=== PATIENT | male | born 1930 | race Caucasian/White ===

== ENCOUNTER → 2016-06-27 | Outpatient (CLI) | payer MEDICARE ==
[~2016-06-27] MED LIST: AMLO10TA2 PO; BACT800T5 PO; CEFD300CAP PO; FERR325T16 PO; FERR32TA PO; FLUC10TA PO; FORADIL AEROLIZER INH; FURO20TA2 PO; FURO40TA2 PO; K-TA1TAB PO; LACT10SO29 PO; LASI40TA PO; LIDO5TD TD; LISI40TAB PO; LISIPOW PO; MAGN500T PO; MAPA325T2 PO; MUCI600T34 PO; MYLASSUD PO; NIZO2SHA EX; OXYB5TA PO; PANT40TA2 PO; PERC5TAB6 PO; RISATAB3 PO; SENN1TAB2 PO; STRI1AER2 INH; TROSPIUM CHLORIDE PO; VERA120T2 PO; VERAPAMIL PO; VITA-130 PO; VITA200015 PO; VITAMIN D PO; VITATAB11 PO; [UNRECOGNIZED DRUG - OTHER]
[2016-06-27 18:26] LABS: MEAN CORPUSCULAR HEMOGLOBIN 28.7 pg (27.0-33.0); MEAN CORPUSCULAR HGB CONC 30.9 g/dl (32.0-36.5); MEAN CORPUSCULAR VOLUME 92.9 fl (80.0-96.0)
[2016-06-27 19:14] LABS: CREATININE FOR GFR 3.76 MG/DL (0.70-1.30); GLOMERULAR FILTRATION RATE 16.3 (>35); POTASSIUM SERUM 3.9 MEQ/L (3.5-5.1)
== END ==
LOC: M SMT 14:35
PROVIDERS: ATTEND Urology
DX: N13.5 Crossing vessel and stricture of ureter without hydronephrosis (principal)

== ENCOUNTER → 2016-07-03 | Outpatient (REF) | payer MEDICARE ==
[~2016-07-03] MED LIST changes: +NITR100C37 PO; +ROCA0.25 PO
== END ==
LOC: M SMT 17:22
PROVIDERS: ATTEND Urology
DX: Z01.818 Encounter for other preprocedural examination (principal); N13.5 Crossing vessel and stricture of ureter without hydronephrosis

== ENCOUNTER → 2016-07-10 | Day surgery (SDC) | payer MEDICARE ==
[~2016-07-10] VITALS: Ht 172.7 cm; Wt 86.6 kg
[~2016-07-10] MED LIST changes: +CONRAY-60 60% 50ML VIAL (Q9961) As Ordered ONE; +CONRAY-60 60% 50ML VIAL (Q9961) XX ONE; +LIDOCAINE 2% 5ML JELLY UROJET As Ordered ONE; +LIDOCAINE 2% 5ML JELLY UROJET XX ONE; +LIDOCAINE 2% INJ 100 MG/5 ML SDV (FOR ANES.) As Ordered ONE; +LR 1,000 ML IV SCH; +MIDAZOLAM INJ 2 MG/2 ML VIAL (J2250) As Ordered ONE; +PROPOFOL 200 MG/20 ML VIAL As Ordered ONE; +fentaNYL 100 MCG/2 ML INJECTION (J3010) As Ordered ONE
--- NOTE | 2016-07-10 18:07 | REP ---
Clinical: Stent exchange. Technique: Intraoperative fluoroscopic imaging. Findings: Two images demonstrate bilateral ureteral stents in satisfactory position. Total fluoroscopic time 27 seconds. Left hip replacement. Degenerative changes to the visualized lumbosacral spine. Impression: Bilateral stents in satisfactory position. Mild bilateral hydronephrosis (right greater than left) suggested. Signed by Nitin Alston MD 07/10/2016 05:58 P
--- NOTE | 2016-07-10 18:55 | RO ---
DATE OF PROCEDURE: 07/10/2016 PREPROCEDURE DIAGNOSIS: Bilateral ureteral obstruction. POSTPROCEDURE DIAGNOSIS: Bilateral ureteral obstruction. PROCEDURE: Cystoscopy, bilateral ureteral stent exchange, bilateral retrograde pyelogram with intraoperative interpretation of images. SURGEON: Dr. Gokul Ibrahim COMMUNITY RELATIONS LIAISON: None. ANESTHESIA: MAC. OPERATIVE INDICATIONS: This is an 86-year-old male with bilateral ureteral obstruction managed with chronic ureteral stenting. He is here today for his usual three month stent exchange. DESCRIPTION OF PROCEDURE: The patient was brought to the operating room and MAC anesthesia was administered. Prophylactic antibiotics were infused. He was then placed in dorsal lithotomy position and prepped and draped in the usual sterile fashion. A rigid cystoscope was inserted into the urethral meatus and advanced to the bladder. Once within the bladder, the previously stents were seen. At this point a guidewire was advanced up the left collecting system. The left ureteral stent was them removed. We then advanced an open ended ureteral catheter up the left collecting system over the wire. The wire was then remove and a retrograde pyelogram was then performed. It was notable for moderate left hydronephrosis. At this point the wire was advanced back up in the left collecting system and the open ended ureteral catheter was then removed. We then advanced a 7 [place] x 22-32 cm JJ ureteral stent up into the left collecting system over the wire. The wire was then removed and there were adequate curls of the stent in the left renal pelvis and in the bladder. At this point, I began to wire the right collecting system. The previously placed right ureteral stent was then removed leaving the wire in place. An open ended ureteral catheter was then advanced over the wire up into the right collecting system. The wire was then removed and a retrograde pyelogram was performed. It was notable for moderate right hydronephrosis. At this point the wire was then advanced back up the open end of the ureteral catheter. The open ended ureteral catheter was then removed leaving the wire in place. I then advanced a 7 [place] x 22-32 cm JJ ureteral stent over the wire up into the right collecting system. The wire was then removed and there were adequate curls of the stent in the right renal pelvis and in the bladder. The bladder was then emptied of all fluid. This marked the conclusion of the procedure. The patient was then taken out of dorsal lithotomy position, awakened from anesthesia and transported to the recovery room in stable condition. ESTIMATED BLOOD LOSS: 0 mL. COMPLICATIONS: None. SPECIMEN: None. PLAN: The patient will be brought back and seen in the clinic in about 2 months and wee will set up for his next stent exchange at that time. ORA
[2016-07-10 18:57] VITALS: BP 148/58
== END | disposition home or self-care (01) ==
LOC: M SDC 14:09
PROVIDERS: ATTEND Urology
DX: N13.5 Crossing vessel and stricture of ureter without hydronephrosis (principal); I10 Essential (primary) hypertension; D64.9 Anemia, unspecified; R23.3 Spontaneous ecchymoses; M12.9 Arthropathy, unspecified; R21 Rash and other nonspecific skin eruption; N28.9 Disorder of kidney and ureter, unspecified; C61 Malignant neoplasm of prostate; R32 Unspecified urinary incontinence; Z79.899 Other long term (current) drug therapy; Z96.651 Presence of right artificial knee joint; Z96.643 Presence of artificial hip joint, bilateral; Z85.118 Personal history of other malignant neoplasm of bronchus and lung; Z85.09 Personal history of malignant neoplasm of other digestive organs; Z92.3 Personal history of irradiation
CPT/HCPCS: 52332; 74420; C1726; C2617; J0690; J2250; J3010; Q9961

== ENCOUNTER → 2016-07-28 | Outpatient (REF) | payer MEDICARE ==
[~2016-07-28] MED LIST changes: -CONRAY-60 60% 50ML VIAL (Q9961) As Ordered ONE; -CONRAY-60 60% 50ML VIAL (Q9961) XX ONE; -LIDOCAINE 2% 5ML JELLY UROJET As Ordered ONE; -LIDOCAINE 2% 5ML JELLY UROJET XX ONE; -LIDOCAINE 2% INJ 100 MG/5 ML SDV (FOR ANES.) As Ordered ONE; -LR 1,000 ML IV SCH; -MIDAZOLAM INJ 2 MG/2 ML VIAL (J2250) As Ordered ONE; -PROPOFOL 200 MG/20 ML VIAL As Ordered ONE; -fentaNYL 100 MCG/2 ML INJECTION (J3010) As Ordered ONE
== END ==
LOC: M LAB REF 16:57
PROVIDERS: ATTEND Internal Medicine Nephrology
DX: D50.9 Iron deficiency anemia, unspecified (principal)

== ENCOUNTER 2016-08-04 08:54 | Outpatient (CLI) | payer MEDICARE ==
[~2016-08-04] VITALS: Ht 177.8 cm; Wt 93.6 kg
[2016-08-04] MEDS ORDERED: IRON SUCROSE 25 MG in NS 50 ML IV ONE (09:15)
[2016-08-04] MEDS ORDERED: IRON SUCROSE 475 MG in NS 250 ML IV ONE (10:15)
[2016-08-04] MEDS ORDERED: [UNRECOGNIZED DRUG - OTHER] TOP (13:48)
[2016-08-04] MEDS ORDERED: LASI80TA PO (13:50)
[2016-08-04] MEDS ORDERED: LASI40TA PO (13:51)
[2016-08-04] MEDS ORDERED: [UNRECOGNIZED DRUG - OTHER] (13:53)
== END 2016-08-04 13:30 | disposition home or self-care (01) ==
LOC: M INFU 08:54
PROVIDERS: ATTEND Internal Medicine Nephrology
DX: D50.9 Iron deficiency anemia, unspecified (principal); Z79.899 Other long term (current) drug therapy
CPT/HCPCS: 96365; 96366; J1756

== ENCOUNTER → 2016-09-19 | Outpatient (REF) | payer MEDICARE ==
[~2016-09-19] MED LIST changes: +ACET-654 PO; +LASI80TA PO; +PROTPAK PO; +SUCR1TA PO; +VITA-199 PO; +VITA2000 PO; +[UNRECOGNIZED DRUG - OTHER]; +[UNRECOGNIZED DRUG - OTHER] TOP
[2016-09-19 19:23] LABS: CHOLESTEROL LEVEL 156 MG/DL (<200); TRIGLYCERIDES LEVEL 139 MG/DL (<150)
[2016-09-20 10:07] LABS: HEPATITIS B SURFACE ANTIBODY NEGATIVE (POSITIVE)
== END ==
LOC: M LAB REF 17:10
PROVIDERS: ATTEND Internal Medicine Nephrology
DX: N18.5 Chronic kidney disease, stage 5 (principal); Z79.899 Other long term (current) drug therapy

== ENCOUNTER → 2016-09-27 | Outpatient (CLI) | payer MEDICARE ==
[~2016-09-27] MED LIST changes: +NITRO10CA PO
[2016-09-27 10:42] LABS: MEAN CORPUSCULAR HGB CONC 33.1 g/dl (32.0-36.5); MEAN CORPUSCULAR VOLUME 93.9 fl (80.0-96.0); RED CELL DISTRIBUTION WIDTH 13.9 % (11.5-14.5); WHITE BLOOD COUNT 5.8 K/mm3 (4.0-10.0)
[2016-09-27 10:57] LABS: CALCIUM LEVEL 8.7 MG/DL (8.8-10.2); CREATININE FOR GFR 4.85 MG/DL (0.70-1.30); GLOMERULAR FILTRATION RATE 12.1 (>35); POTASSIUM SERUM 3.8 MEQ/L (3.5-5.1)
== END ==
LOC: M SMT 08:57
PROVIDERS: ATTEND Urology
DX: Z01.818 Encounter for other preprocedural examination (principal); N13.5 Crossing vessel and stricture of ureter without hydronephrosis
CPT/HCPCS: 36415; 80048; 85027; 87088; 87186; G0463

== ENCOUNTER → 2016-10-05 | Day surgery (SDC) | payer MEDICARE ==
[~2016-10-05] VITALS: Ht 175.3 cm; Wt 91.2 kg
[~2016-10-05] MED LIST changes: +CONRAY-60 60% 50ML VIAL (Q9961) As Ordered ONE; +LIDOCAINE 2% 5ML JELLY UROJET As Ordered ONE; +LIDOCAINE 2% INJ 100 MG/5 ML SDV (FOR ANES.) As Ordered ONE; +LR 1,000 ML IV ONE; +LevoFLOXacin(LEVAQUIN)500 MG/100 ML BAG (J1956) As Ordered ONE; +MIDAZOLAM INJ 2 MG/2 ML VIAL (J2250) As Ordered ONE; +NS 1,000 ML IV SCH; +PROPOFOL 200 MG/20 ML VIAL As Ordered ONE; +ceFAZolin 2 GM/D5W 50 ML IV BAG (J0690) As Ordered ONE; +fentaNYL 100 MCG/2 ML INJECTION (J3010) As Ordered ONE
--- NOTE | 2016-10-05 12:55 | REP ---
Retrograde pyelogram: Two views. History: Stent exchange. 34 seconds of fluoroscopy time is reported. Findings: A sequence of two fluoroscopically obtained last image hold spot radiographs of the abdomen document bilateral double pigtailed ureteral stents. Signed by João Crystal MD 10/05/2016 01:00 P
[2016-10-05 13:30] VITALS: BP 152/69
--- NOTE | 2016-10-06 14:48 | RO ---
DATE OF PROCEDURE: 10/05/2016 PREPROCEDURE DIAGNOSIS: Bilateral ureteral obstruction. POSTPROCEDURE DIAGNOSIS: Bilateral ureteral obstruction. PROCEDURE: Cystoscopy, bilateral retrograde pyelogram with intraoperative interpretation of images, bilateral ureteral stent exchange. SURGEON: Gokul Ibrahim MD REHABILITATION COUNSELOR: None. ANESTHESIA: MAC. OPERATIVE INDICATIONS: This is a 86-year-old male with chronic bilateral ureteral obstruction and chronic ureteral stent exchanges. He is here today for routine stent exchange. DESCRIPTION OF PROCEDURE: The patient was brought to the operating room, where MAC anesthesia was administered. Prophylactic antibiotics were infused. He was then placed in the dorsal lithotomy position and prepped and draped in the usual sterile fashion. A rigid cystoscope was then inserted into the urethral meatus and advanced into the bladder. A wire was then advanced up the left collecting system alongside the ureteral stent. The stent was then removed. An open ended ureteral catheter was advanced over the wire up into the left collecting system. The wire was then removed leaving the ureteral catheter in place. A retrograde pyelogram was performed and notable for mild left hydronephrosis with no extravasation. The wire was then advanced back up the ureteral catheter and the ureteral catheter was them removed. We then utilized the wire to advance a #7-[place]au[place] x 22-32 cm JJ ureteral stent up the left collecting system. The wire was then removed, and there were adequate curls of the stent in the left renal pelvis and in the bladder. I then advanced the wire up the right collecting system alongside the stent. The stent was then removed leaving the wire in place. An open ureteral catheter was then advanced over the wire up into the right collecting system. The wire was then removed leaving the ureteral catheter in place. I then shot a right retrograde pyelogram and it was notable for mild right hydronephrosis and no extravasation. At this point the wire was then advanced back up the ureteral catheter and then the ureteral catheter was then removed. The wire was utilized to advance a #7-[place] x 22-32 cm JJ ureteral stent up into the right collecting system. The wire was then removed and there were adequate curls of the stent in the right renal pelvis and in the bladder. At this point, the bladder was then emptied of all fluid, and this marked the conclusion of the procedure. The patient was then taken out of the dorsal lithotomy position, awakened from anesthesia, and transported to the recovery room in stable condition. ESTIMATED BLOOD LOSS: 0 mL. COMPLICATIONS: None. SPECIMENS: None. PLAN: The patient will followup in the clinic in approximately 2 months. At that point, we will get him set up for a possible stent exchange. Of note, the patient will be going on dialysis soon and I have explained that when that happens he might stop making urine. If that happens, we will actually remove the stents. ORA
== END | disposition home or self-care (01) ==
LOC: M SDC 09:36 → EEVIPCON 11:00
PROVIDERS: ATTEND Urology
DX: N13.5 Crossing vessel and stricture of ureter without hydronephrosis (principal); N18.5 Chronic kidney disease, stage 5; D50.9 Iron deficiency anemia, unspecified; M10.9 Gout, unspecified; N39.0 Urinary tract infection, site not specified; R60.0 Localized edema; I12.0 Hypertensive chronic kidney disease with stage 5 chronic kidney disease or end stage renal disease; E87.6 Hypokalemia; K21.9 Gastro-esophageal reflux disease without esophagitis; E55.9 Vitamin D deficiency, unspecified; M12.9 Arthropathy, unspecified; R21 Rash and other nonspecific skin eruption; Z79.899 Other long term (current) drug therapy; Z90.2 Acquired absence of lung [part of]; Z96.0 Presence of urogenital implants; Z85.038 Personal history of other malignant neoplasm of large intestine; Z85.118 Personal history of other malignant neoplasm of bronchus and lung; Z87.440 Personal history of urinary (tract) infections; Z87.442 Personal history of urinary calculi; Z92.21 Personal history of antineoplastic chemotherapy; Z92.3 Personal history of irradiation; Z87.891 Personal history of nicotine dependence; Z96.643 Presence of artificial hip joint, bilateral; Z96.651 Presence of right artificial knee joint
CPT/HCPCS: 52332; 74420; C1726; C2617; J0690; J1956; J2250; J3010; Q9961

== ENCOUNTER → 2016-11-27 | Outpatient (CLI) | payer MEDICARE ==
[~2016-11-27] MED LIST changes: -ACET-654 PO; +ACET1TAB17 PO; +CEPH500C PO; -CONRAY-60 60% 50ML VIAL (Q9961) As Ordered ONE; -LIDOCAINE 2% 5ML JELLY UROJET As Ordered ONE; -LIDOCAINE 2% INJ 100 MG/5 ML SDV (FOR ANES.) As Ordered ONE; -LR 1,000 ML IV ONE; -LevoFLOXacin(LEVAQUIN)500 MG/100 ML BAG (J1956) As Ordered ONE; -MIDAZOLAM INJ 2 MG/2 ML VIAL (J2250) As Ordered ONE; -MUCI600T34 PO; +MUCI600T37 PO; +MULT1TAB10 PO; +NITR100C2 PO; -NITR100C37 PO; +NITR100C39 PO; +NIZO2SHA EXT; +NIZO2SHA TOP; -NS 1,000 ML IV SCH; -OXYB5TA PO; +OXYB5TAB10 PO; +PERC5TAB12 PO; -PERC5TAB6 PO; -PROPOFOL 200 MG/20 ML VIAL As Ordered ONE; -VITA-130 PO; +VITA500T PO; +VP-V1TAB PO; -ceFAZolin 2 GM/D5W 50 ML IV BAG (J0690) As Ordered ONE; -fentaNYL 100 MCG/2 ML INJECTION (J3010) As Ordered ONE
[2016-11-27 19:02] LABS: MEAN CORPUSCULAR HEMOGLOBIN 31.3 pg (27.0-33.0); MEAN CORPUSCULAR HGB CONC 32.3 g/dl (32.0-36.5); MEAN CORPUSCULAR VOLUME 96.7 fl (80.0-96.0); RED CELL DISTRIBUTION WIDTH 14.5 % (11.5-14.5); WHITE BLOOD COUNT 8.3 K/mm3 (4.0-10.0)
[2016-11-27 19:32] LABS: ALBUMIN 3.5 GM/DL (3.2-5.2); CALCIUM LEVEL 8.1 MG/DL (8.8-10.2); CREATININE FOR GFR 5.01 MG/DL (0.70-1.30); GLOMERULAR FILTRATION RATE 11.7 (>35); MAGNESIUM LEVEL 2.4 MG/DL (1.8-2.4); PHOSPHORUS LEVEL 7.2 MG/DL (2.5-4.9); POTASSIUM SERUM 4.2 MEQ/L (3.5-5.1); URIC ACID 6.6 MG/DL (3.5-7.2)
== END ==
LOC: M SMT 14:26
PROVIDERS: ATTEND Internal Medicine Nephrology
DX: N18.5 Chronic kidney disease, stage 5 (principal); D63.1 Anemia in chronic kidney disease

== ENCOUNTER → 2016-12-04 | Outpatient (REF) | payer MEDICARE ==
[2016-12-04 14:49] LABS: CHOLESTEROL LEVEL 120 MG/DL (<200); HEPATITIS B SURFACE ANTIBODY NEGATIVE (POSITIVE); TRIGLYCERIDES LEVEL 107 MG/DL (<150)
== END ==
LOC: M LAB REF 14:00
PROVIDERS: ATTEND Internal Medicine Nephrology
DX: Z01.818 Encounter for other preprocedural examination (principal); N18.5 Chronic kidney disease, stage 5; N13.5 Crossing vessel and stricture of ureter without hydronephrosis; N39.0 Urinary tract infection, site not specified; Z79.899 Other long term (current) drug therapy
CPT/HCPCS: 80061; 83036; 86705; 86706; 86803; 87340; G0463

== ENCOUNTER → 2016-12-21 | Outpatient (CLI) | payer MEDICARE ==
--- NOTE | 2016-12-21 12:33 | REP ---
REASON FOR EXAM: Preprocedural imaging. Patient status post carcinoma of the right lung. COMPARISON: Multiple latest 09/05/2016, a portable exam. Once again, there is complete opacification of the right hemithorax due to pneumonectomy. There are no changes in the left lung. There is hyperexpansion and evidence of fibrotic change but no acute patchy parenchymal opacities or pleural effusions have developed. There is no change in the cardiomediastinal silhouette or osseous structures. IMPRESSION: Stable appearing chronic changes as described above. Signed by Kelvin King DO 12/21/2016 04:44 P
== END ==
LOC: M LAB 10:36
PROVIDERS: ATTEND Urology
DX: Z01.818 Encounter for other preprocedural examination (principal); N13.5 Crossing vessel and stricture of ureter without hydronephrosis; N39.0 Urinary tract infection, site not specified; Z79.899 Other long term (current) drug therapy

== ENCOUNTER 2016-12-28 06:22 | Inpatient (IN) | payer MEDICARE ==
[~2016-12-28] VITALS: Ht 177.8 cm; Wt 79.6 kg
[~2016-12-28 06:22] MED LIST changes: -CEPH500C PO; -MULT1TAB10 PO; -NITR100C2 PO; -NIZO2SHA EXT; -VP-V1TAB PO
[2016-12-28 08:08] LABS: BASO % 0.1 % (0.0-1.0); EOS # 0.3 K/mm3 (0.0-0.50); EOS % 3.2 % (0.0-3.0); LARGE UNSTAINED CELL # 0.1 K/mm3 (0.0-0.4); LARGE UNSTAINED CELL % 0.6 % (0.0-4.0); LYMPH # 0.2 K/mm3 (1.5-4.5); LYMPH % 1.6 % (24.0-44.0); MEAN CORPUSCULAR HEMOGLOBIN 32.5 pg (27.0-33.0); MEAN CORPUSCULAR VOLUME 98.3 fl (80.0-96.0); MONO # 0.3 K/mm3 (0.0-0.8); MONO % 2.9 % (0.0-5.0); NEUTROPHILS # 9.3 K/mm3 (1.8-7.7); NEUTROPHILS % 91.5 % (36.0-66.0); PLATELET COUNT, AUTOMATED 269 k/mm3 (150-450); RED CELL DISTRIBUTION WIDTH 13.9 % (11.5-14.5); WHITE BLOOD COUNT 10.1 K/mm3 (4.0-10.0)
--- NOTE | 2016-12-28 08:30 | REP ---
CT Head without contrast HISTORY: Altered mental status COMPARISON: 09/05/2016 Areas of decreased attenuation are present in the periventricular white matter. This represents small-vessel ischemic disease. There is no intraparenchymal hemorrhage, acute infarct, mass or midline shift. The ventricular system and cortical sulci are dilated consistent with moderate volume loss. There is no extra cerebral collection. There is no fracture. The visualized sinuses are clear. IMPRESSION: 1. Small vessel ischemic disease. 2. Moderate volume loss. Signed by Marek Chino MD 12/28/2016 08:22 A
[2016-12-28 08:41] LABS: ALBUMIN 2.5 GM/DL (3.2-5.2); ALBUMIN/GLOBULIN RATIO 0.81 (1.00-1.93); ALKALINE PHOSPHATASE 66 U/L (45-117); ALT/SGPT 12 U/L (12-78); ANION GAP 9 MEQ/L (8-16); AST/SGOT 16 U/L (15-37); BILIRUBIN,DIRECT 0.1 MG/DL (0.0-0.2); BILIRUBIN,TOTAL 0.3 MG/DL (0.2-1.0); BLOOD UREA NITROGEN 26 MG/DL (7-18); CALCIUM LEVEL 7.9 MG/DL (8.8-10.2); CARBON DIOXIDE LEVEL 30 MEQ/L (21-32); CHLORIDE LEVEL 104 MEQ/L (98-107); CREATININE FOR GFR 3.66 MG/DL (0.70-1.30); GLOMERULAR FILTRATION RATE 16.8 (>35); GLUCOSE, FASTING 110 MG/DL (83-110); POTASSIUM SERUM 3.4 MEQ/L (3.5-5.1); SODIUM LEVEL 143 MEQ/L (136-145); TOTAL PROTEIN 5.6 GM/DL (6.4-8.2)
[2016-12-28] MEDS: SALMETEROL DISKUS 50MCG INHALER (SEREVENT) INH SCH ×2 (09:00→20:23)
--- NOTE | 2016-12-28 09:50 | REP ---
CHEST, TWO VIEWS: HISTORY: Altered mental status. CONCLUSIONS: 12/21/2016 The patient is status post right pneumonectomy. There is shift of the mediastinal structures to the right. There opacification of the right hemithorax. Calcified granuloma are present in the left lung. Degenerative change is present in the thoracic spine. The bony structure is osteopenic. IMPRESSION: 1. The patient is status post right pneumonectomy. 2. Old granulomatous disease. Signed by Marek Chino MD 12/28/2016 11:05 A
[2016-12-28] MEDS ORDERED: NIZO2SHA EXT (09:58)
[2016-12-28] MEDS ORDERED: CEPH500C PO (09:58)
[2016-12-28] MEDS ORDERED: ACETAMINOPHEN TAB 650MG DOSE (2X325MG) PO PRN (10:30)
[2016-12-28] MEDS ORDERED: ALBUTEROL SULFATE 2.5 MG/0.5 ML INH NEB SOLN NEB PRN (10:30)
[2016-12-28 14:30] VITALS: BP 117/56
--- NOTE | 2016-12-28 15:11 | HPE ---
DATE OF ADMISSION: 12/28/2016 PRIMARY CARE PROVIDER: Dr. Walker CHIEF COMPLAINT: Fall. HISTORY OF PRESENT ILLNESS: This patient is an 86-year-old male with a past medical history significant for end stage renal disease on dialysis, chronic obstructive pulmonary disease (COPD), lung cancer, status post right pneumonectomy, frequent urinary tract infections, history of prostate cancer, secondary hyperparathyroidism, who presented to [facility] on 12/28/2016 after a fall. This morning around 5:45 a.m., the patient tried to stand up and reach to grab his medication and he fell and landed on his left hip and denies any loss of consciousness. Shortly after the family members arrived and noticed the patient had left arm shaking for brief moments. The patient also complained about generalized weakness. The patient was brought to [facility] for further evaluation. Per patient and the patient's family, the patient does not have any loss of bladder or bowel control. Denies any tongue biting. Denies any loss of consciousness. The patient had another fall 2 days ago. The patient stated that he slipped on the wet bathroom floor and he landed on his buttocks. For that fall episode, he denies any muscle weakness, denies any loss of consciousness. The patient does have a significant history of frequent urinary tract infections and the patient does have a ureteral stent, which was changed every 3 months. The patient is supposedly due for the stent placement today. The patient was recently diagnosed with UTI by Dr. Ibrahim. Urine culture from 12/21/2016 showed positive for Escherichia (E) coli and the patient was given Keflex. HOME MEDICATIONS: - amlodipine 10 mg by mouth daily - Keflex 500 mg by mouth every 12 hours started on 12/25/2016 for 10-day supply - vitamin D3 2000 units by mouth at night - vitamin D3 10,000 units by mouth weekly on Sundays - ferrous gluconate 325 mg by mouth daily - Nizoral topically twice a day as needed for skin rash applied to the forearm - Striverdi one puff inhalation twice a day PAST MEDICAL HISTORY: 1. COPD. 2. History of lung cancer, status post right pneumonectomy. 3. Frequent urinary tract infections. 4. End stage renal disease on hemodialysis. 5. Secondary hyperparathyroidism. 6. Anemia from chronic kidney disease. 7. History of colon cancer, status post hemicolectomy. PAST SURGICAL HISTORY: 1. Right pneumonectomy. 2. Two hip surgeries. 3. Right knee surgery. 4. Hemicolectomy for colon cancer. 5. Cholecystectomy. 6. Multiple bilateral ureteral stent exchanges every [address] Ibrahim. ALLERGIES: No known drug allergies. SOCIAL HISTORY: The patient quit smoking approximately 20 to 30 years ago. Drinks alcohol occasionally. Denies recreational drug use. REVIEW OF SYSTEMS: GENERAL: Denies generalized weakness today prior to the fall. Denies any fever or chills. HEENT: No vision changes. No auditory changes. CARDIOVASCULAR: Denies any chest pain, palpitations. RESPIRATORY: History of chronic obstructive pulmonary disease (COPD). Denies any cough or wheeze or sputum production. GASTROINTESTINAL: Denies any nausea, vomiting, or abdominal pain or diarrhea. GENITOURINARY: The patient does have multiple urinary tract infections in the past. THe patient has ureteral stent placement every 3 months. MUSCULOSKELETAL: Denies any muscle pain or joint pain. NEUROLOGIC: Denies any numbness or tingling. OBJECTIVE: VITAL SIGNS: Temperature 98.4, pulse is 88, respirations 16, blood pressure is 98/55, pulse oximetry is 99% on room air. GENERAL: Fatigued. No sign of acute distress. Alert and oriented times three. HEENT: Normocephalic, atraumatic. Extraocular motors are grossly intact. CARDIOVASCULAR: Positive S1, S2. Regular rate. Positive systolic murmur. LUNGS: Clear to auscultation bilaterally. Positive wheezes, no rhonchi. GASTROINTESTINAL: Abdomen is soft, nontender, nondistended. Bowel sounds present. No rebound. No guarding. NEUROLOGIC: Sensation to fine touch is grossly intact throughout. Muscle strength is 5/5. MUSCULOSKELETAL: No edema. No sign of cyanosis. LABORATORY DATA: WBC 10.1, hemoglobin 8.6, hematocrit 26, platelet count is 269. Sodium is 143, potassium 3.4, chloride is 104, carbon dioxide 30, BUN 26, creatinine 3.6, GFR is 16.8, fasting glucose 110, calcium is 7.9, total bilirubin is 0.3, direct bilirubin is 0.1, AST 16, ALT 12, alkaline phosphatase 66, troponin I is less than 0.02, C-reactive protein is 12.5, total protein 5.6, albumin is 2.5, TSH is 1.09. IMAGING STUDIES: CT of the head without contrast shows small vessel ischemic disease. Moderate volume loss. Chest x-ray showed status post right pneumonectomy. Old granulomatous disease. ASSESSMENT AND PLAN: 1. Fall. We will admit the patient to progressive care unit (PCU) for cardiac telemetry to rule out any arrhythmia. We will check orthostatic hypotension. The patient does have a history of orthostasis. The patient is currently having an active UTI. Culture from 12/21/2016 was reviewed. The patient was started on IV Rocephin. The suspicion for seizure is low based on the patient's history, but we will continue to monitor the patient. The patient will work with physical therapy (PT) for functional evaluation. 2. Frequent UTI. Currently, the patient has Escherichia (E) coli UTI. The patient was given Keflex in the outpatient setting since 12/25. The patient was started receiving IV Rocephin. 3. Frequent ureteric stent exchange. The patient had a scheduled appointment with Dr. Ibrahim today (12/28/2016) for stent replacement; however, due to recurrent falls the patient had to cancel the procedure. 4. End stage renal disease on hemodialysis. The patient's dialysis day is Sunday, Sunday and Sunday. Nephrology has been consulted. The patient will have scheduled hemodialysis tomorrow. 5. COPD. The patient will have nebulizer as needed. I will continue the patient on long-acting beta agonist. Currently, he does not have any exacerbations. 6. History of colon cancer, status post hemicolectomy. 7. Anemia of chronic kidney disease. Continue to monitor hemoglobin and hematocrit. 8. History of hypertension. Currently, the patient has very soft blood pressure. Blood pressure medication will be on hold. At home, the patient is taking amlodipine. 9. Deep vein thrombosis (DVT) prophylaxis. The patient is on heparin.
[2016-12-28] MEDS: HEPARIN SOD (PORCINE) 5000 UNITS/ML VIAL SC SCH ×2 (15:27→20:22)
[2016-12-28] MEDS: cefTRIAXone SOD 2 GM in D5W MINI-BAG PLUS 50 ML IV SCH ×2 (15:27→22:36)
[2016-12-28 16:00] VITALS: BP 124/58
[2016-12-28] MEDS ORDERED: SLF 3 ML SYR IV PRN (17:30)
[2016-12-28 20:00] VITALS: BP 119/56
[2016-12-28] MEDS: LACTOBACILLUS ACIDOPHILUS CAP (BACID) PO SCH (20:21)
[2016-12-28] MEDS: VITAMIN B COMPLEX/VIT C CAP PO SCH (20:21)
[2016-12-28] MEDS: SLF 3 ML SYR IV SCH (20:29)
[2016-12-28] MEDS: VITAMIN D 1,000 INTERNATIONAL UNITS TABLET PO SCH (20:29)
--- NOTE | 2016-12-28 21:36 | ECGEPIP ---
Stationary ECG Study [facility] - ED Test Date: 2016-12-28 Pat Name: TARUN OSORIO Department: Room: - Gender: M Vp Respiratory: LUANN : 1930 Requested By: Adore Razo Order Number: [id number] Reading MD: Adore Razo Measurements Intervals [place] Rate: 71 P: 58 MO: 225 QRS: -43 QRSD: 150 T: 27 QT: 418 QTc: 456 Interpretive Statements SINUS RHYTHM WITH FIRST DEGREE AV BLOCK WITH OCCASIONAL SUPRAVENTRICULAR PREMATURE COMPLEXES MARKED LEFT AXIS DEVIATION RIGHT BUNDLE BRANCH BLOCK DECREASED RATE 09/05/16 Electronically Signed On 12-28-2016 21:36:21 EDT by Adore Razo
[2016-12-28 23:59] VITALS: BP_SYST 120; BP_SYST 127; BP_SYST 135; BP_DIAS 58; BP_DIAS 59; BP_DIAS 61
[2016-12-29] MEDS ORDERED: CALCIUM CARBONATE 500 MG CHEW U/D PO ONE (02:30)
[2016-12-29] MEDS: PANTOPRAZOLE 40MG TAB (PROTONIX) PO SCH ×2 (02:41→21:55)
[2016-12-29 04:00] VITALS: BP 126/60
[2016-12-29] MEDS ORDERED: ATENOLOL 25 MG TAB PO ONE (05:00)
[2016-12-29] MEDS: SLF 3 ML SYR IV SCH ×3 (05:27→21:56)
[2016-12-29] MEDS: HEPARIN SOD (PORCINE) 5000 UNITS/ML VIAL SC SCH ×3 (05:29→21:55)
[2016-12-29 05:32] LABS: MEAN CORPUSCULAR HEMOGLOBIN 32.1 pg (27.0-33.0); MEAN CORPUSCULAR HGB CONC 32.4 g/dl (32.0-36.5); MEAN CORPUSCULAR VOLUME 98.9 fl (80.0-96.0); RED CELL DISTRIBUTION WIDTH 13.9 % (11.5-14.5); WHITE BLOOD COUNT 8.7 K/mm3 (4.0-10.0)
[2016-12-29 05:55] LABS: ANION GAP 9 MEQ/L (8-16); BLOOD UREA NITROGEN 35 MG/DL (7-18); CALCIUM LEVEL 8.2 MG/DL (8.8-10.2); CARBON DIOXIDE LEVEL 29 MEQ/L (21-32); CHLORIDE LEVEL 104 MEQ/L (98-107); CREATININE FOR GFR 4.44 MG/DL (0.70-1.30); GLOMERULAR FILTRATION RATE 13.4 (>35); GLUCOSE, FASTING 99 MG/DL (83-110); POTASSIUM SERUM 3.1 MEQ/L (3.5-5.1); SODIUM LEVEL 142 MEQ/L (136-145)
[2016-12-29] MEDS: POTASSIUM CHLORIDE 10 MEQ SR TABLET PO SCH ×2 (06:27→06:28)
[2016-12-29] MEDS: SALMETEROL DISKUS 50MCG INHALER (SEREVENT) INH SCH ×2 (07:28→21:18)
[2016-12-29] MEDS: LACTOBACILLUS ACIDOPHILUS CAP (BACID) PO SCH ×2 (07:39→21:55)
[2016-12-29] MEDS: FERROUS GLUCONATE 324 MG TAB PO SCH (07:39)
[2016-12-29 08:00] VITALS: BP_SYST 107; BP_SYST 115; BP_SYST 118; BP_DIAS 54; BP_DIAS 57; BP_DIAS 59
[2016-12-29] MEDS ORDERED: amLODIPine 10 MG TAB PO SCH (09:00)
--- NOTE | 2016-12-29 09:06 | ECGEPIP ---
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 LA conduction disturbance. First-degree AV block. Left anterior hemiblock. Right bundle branch block No change from 12/28/16. Electronically Signed On 12-29-2016 9:06:40 EDT by Sancho Fernandes
[2016-12-29] MEDS ORDERED: DARBEPOETIN 100 MCG/0.5 ML *DIALYSIS* SYRINGE (J0882) IV SCH (09:30)
[2016-12-29] MEDS ORDERED: HEPARIN 1,000 UNITS/ML 10ML VIAL (FOR RADIOLOGY& DIALYSIS ONLY) IV ONE (12:00)
[2016-12-29] MEDS: cefTRIAXone SOD 2 GM in D5W MINI-BAG PLUS 50 ML IV SCH ×2 (13:23→22:00)
--- NOTE | 2016-12-29 13:45 | CR ---
DATE OF CONSULTATION: 12/29/2016 REQUESTING PHYSICIAN: Dr. Tameka Beaver CONSULTING PHYSICIAN: Dr. Gonzalez REASON FOR CONSULTATION: Management of end stage renal disease and hemodialysis. CHIEF COMPLAINT: The patient presented to the emergency room last night after a mechanical fall. HISTORY OF PRESENT ILLNESS: Mr. Neville Combs is an 86-year-old male with a past medical history of end stage renal disease on hemodialysis, chronic obstructive pulmonary disease (COPD), history of right pneumonectomy in the past, history of prostate cancer causing bilateral ureteric obstructions, status post bilateral ureteric stents that he gets changed every 3 months. He is due for another change now. The patient was brought to the emergency room yesterday after he fell and landed on his hip. He denies any loss of consciousness. He did not hit his head. The patient also reported generalized weakness recently. He is a hemodialysis patient. He was recently started on hemodialysis a few weeks ago and his regular schedule is Sunday, Sunday, Sunday and today is his regular day of dialysis. The patient was found to have urinary tract infection (UTI) and soft blood pressure. His antihypertensive medications have been held and nephrology service has been called for management of end stage renal disease. I saw and examined the patient during hemodialysis procedure today morning. He was being dialyzed according to his regular schedule and he was tolerating the hemodialysis procedure well. He is currently hemodynamically stable. PAST MEDICAL HISTORY: The patient's past medical history includes: 1. 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 2. End stage renal disease on hemodialysis every Sunday, Sunday, Sunday. 3. Secondary hyperparathyroidism. 4. Anemia. 5. End stage renal disease. 6. History of colon cancer status post hemicolectomy. 7. History of bilateral ureteric obstructions, status post bilateral ureteric stents. 8. History of frequent UTI in the past. 9. History of prostate cancer. PAST SURGICAL HISTORY: 1. Status post right pneumonectomy in the past. 2. Status post hip surgery in the past. 3. History of right knee surgery. 4. Status post hemicolectomy for colon cancer. 5. Status post cholecystectomy. 6. He gets bilateral ureteric stents exchanged every three months by urology. ALLERGIES: No known drug allergies. HOME MEDICATIONS: The patient's home medications include: - amlodipine 10 mg daily - B complex one tablet daily - cephalexin 500 mg every 12 hours, which was started on 12/25/2016 - vitamin D 2000 units daily - iron 325 mg by mouth daily - Striverdi Respimat one puff twice a day FAMILY HISTORY: No significant family history of end stage renal disease requiring hemodialysis. SOCIAL HISTORY: The patient is a former smoker. He denies any illicit drug abuse or alcohol abuse. REVIEW OF SYSTEMS: CONSTITUTIONAL: The patient reports weakness. He denies any fever, chills, or rigors. EYES: He denies any blurry vision or double vision. ENT: He denies any dysphagia, odynophagia or ear discharge. CARDIOVASCULAR: He denies any chest pain or palpitations. RESPIRATORY: The patient has a history of COPD but denies any recent wheezing or coughing. GASTROINTESTINAL: He denies any nausea, vomiting, constipation. GENITOURINARY: He denies any dysuria or hematuria, but he reports that he is due for his bilateral ureteric stents exchange now. MUSCULOSKELETAL: He denies any muscle aches and pains. NEUROLOGIC: He denies any strokes or seizures, but he does report some weakness. SKIN: He denies any rashes or ulcers. HEMATOLOGIC/ONCOLOGIC: The patient reports a history of lung cancer and colon cancer in the past. He reports anemia of end stage renal disease, but he denies any easy bruising or bleeding. ENDOCRINE: There is no history of diabetes, hypothyroidism, or hyperthyroidism. The rest of the review of systems is negative. PHYSICAL EXAMINATION: GENERAL: The patient is awake, alert, oriented times three, sitting on the sofa getting hemodialysis done. VITAL SIGNS: Temperature is 98.6 degrees Fahrenheit. Blood pressure 126/60, pulse is 72, respiratory rate of 18, saturating 96% on room air. INTAKE AND OUTPUT: Urine output recorded is only 100 mL. Weight is 80.6. HEAD AND NECK EXAMINATION: Extraocular muscles intact. Pupils are equal, round and reactive to light. Mucous membranes are moist. NECK: Supple. There is no jugular venous distention (JVD). CARDIOVASCULAR: S1, S2. Regular rate. No murmur, rub or gallop. RESPIRATORY: Clear to auscultation on the left side. The patient has bronchial breath sounds on the right because of history of right sided pneumonectomy. ABDOMEN: Soft. Positive bowel sounds. Nondistended. No organomegaly. MUSCULOSKELETAL: No clubbing or cyanosis. Pulses are 2+. CENTRAL NERVOUS SYSTEM (RUNNER ON): No focal neurological deficit. Power is 5/5 in bilateral upper extremities. SKIN: No rashes or ulcers. PSYCHIATRIC: Normal mood and affect. LYMPHS: No significant cervical axillary or inguinal lymphadenopathy. LABORATORY REVIEW: CBC showed a WBC of 8.7, hemoglobin 8.9, platelets are 271. BMP showed sodium 142, potassium 3.1, chloride 104, bicarbonate 29, BUN 35, creatinine is 4.4, calcium 8.2, troponin less than 0.02. IMAGING: A CT scan of the head was done yesterday and showed small vessel ischemic disease, moderate volume loss. Chest x-ray done yesterday showed right pneumonectomy and old granulomatous disease. CURRENT INPATIENT MEDICATIONS: THe patient's medications are all reviewed by me. He has been started on IV Rocephin 2 grams IV every 12 hours. His amlodipine has been stopped. He is currently on atenolol 12.5 mg by mouth, one dose was given. He continues to be on Tums 500 mg by mouth as needed. I have started the patient on Aranesp 200 mcg IV with hemodialysis. He is on Protonix 40 mg at night, Solu-Medrol as needed, vitamin B complex with vitamin C one tablet daily and vitamin D 2000 units by mouth daily. ASSESSMENT: 86-year-old male with past medical history of end stage renal disease on hemodialysis, history of chronic obstructive pulmonary disease (COPD), solitary functioning left lung status post right pneumonectomy, history of cancer of the prostate causing bilateral ureteric obstructions, status post bilateral ureteric stents, which are changed every 3 months, history of chronic colonization and frequent urinary tract infections, admitted this time because of fall. 1. Mechanical fall. The patient was already being treated for UTI as an outpatient. His blood pressures are soft over here. Give his age and comorbidities, even if systolic blood pressure goes up to 140 systolic that would be acceptable. I agree with holding amlodipine at this time. Continue the UTI management with IV Rocephin; however, it could be very difficult to clear this patient given his history of bilateral ureteric stents, which are frequently changed every [address] scan was negative. Consider video EEG if needed. However, the patient denies any loss of consciousness when he fell. 2. End stage renal disease. On hemodialysis. Today is the patient's regular dialysis day. THe patient is being dialyzed according to his schedule today. However, I am going to removal only 1 liter of fluid because of recent fall and soft blood pressure. 3. Frequent UTI and recent Escherichia (E) coli urinary tract infection (UTI). The patient is being given Keflex. He should finish one week course of Keflex. 4. Bilateral ureteric stents. The patient is due for an exchange of his stents now. We will get urology on board to see if the stents can be exchanged while the patient is admitted. 5. Anemia and end stage renal disease. I going to give the patient a dose of Aranesp 200 mcg with hemodialysis today. 6. Hypertension. As mentioned above, the patient has a soft blood pressure. Continue to hold the amlodipine. Hemodialysis and ultrafiltration will also low the blood pressure. 7. Chronic obstructive pulmonary disease (COPD), optimized at this time. Continue current nebulizations. The rest of the management is as per primary team. Thank you fro involving us in the care of this patient. We shall be happy to follow the patient along with you tomorrow morning.
[2016-12-29 16:00] VITALS: BP 128/58
[2016-12-29 20:00] VITALS: BP_SYST 127; BP_SYST 128; BP_SYST 131; BP_DIAS 60; BP_DIAS 62
[2016-12-29 20:12] LABS: ANION GAP 10 MEQ/L (8-16); BLOOD UREA NITROGEN 19 MG/DL (7-18); CALCIUM LEVEL 8.5 MG/DL (8.8-10.2); CARBON DIOXIDE LEVEL 30 MEQ/L (21-32); CHLORIDE LEVEL 103 MEQ/L (98-107); CREATININE FOR GFR 2.66 MG/DL (0.70-1.30); GLOMERULAR FILTRATION RATE 24.3 (>35); GLUCOSE, FASTING 118 MG/DL (83-110); SODIUM LEVEL 143 MEQ/L (136-145)
--- NOTE | 2016-12-29 20:33 | IPN ---
DATE: 12/29/2016 SUBJECTIVE: The patient is seen and examined in the room today. Per patient, yesterday evening time and service loss control consultant, the patient experienced significant reflux type of symptoms, causing the patient to have a very difficult night. The patient has not been receiving good sleep. After the Protonix and Tums, the patient's symptoms started to improve. At the morning encounter, the patient denies any active epigastric pain. The patient state he is still feeling very lightheaded and weak especially when he tried to sit up or stand up. OBJECTIVE: VITAL SIGNS: Temperature is 98.6, pulse is 75, respirations 18, blood pressure in supine is 115/57, sitting is 118/59, and standing is 107/54. Oxygen saturation is 100% on room air. GENERAL: No sign of acute distress. Patient alert and oriented times three. Patient is sitting comfortably in a wheelchair on his way to dialysis. HEENT: Normocephalic, atraumatic. Extraocular motor grossly intact. CARDIOVASCULAR: Positive S1, S2. Regular rate. Positive systolic murmur. No tachycardia at his time of encounter. LUNGS: Clear to auscultation bilaterally. Positive wheezes. No rhonchi. GASTROINTESTINAL: Abdomen is soft, nontender, nondistended. Bowel sounds present. No rebound, no guarding. MUSCULOSKELETAL: No edema. No sign of cyanosis. LABORATORY DATA: WBC 8.7, hemoglobin 8.9, hematocrit 27.5, platelet count 271. Sodium is 142, potassium 3.1, chloride 104, carbon dioxide 29, BUN 35, creatinine 4.44, GFR 13.4, fasting glucose 99, calcium 8.2. Total CK is 44. Troponin I is less than 0.02. ASSESSMENT AND PLAN: 1. Escherichia (E.) coli urinary tract infection. The patient is currently taking Rocephin. 2. End-stage renal disease on dialysis. The patient will be dialyzed today. The patient's dialysis days are Sunday, Sunday, and Sunday. We appreciate nephrology's assistance. 3. Frequent falls. The patient is monitored on telemetry. The patient has a few episodes of arrhythmia detected on telemetry. At this time, the patient does complain about reflux type of symptoms. Troponin was performed and shows negative results. We will continue to trend troponin. The patient does complain about lightheadedness especially when he tried to sit up or stand up. We will follow orthostatic blood pressure measurements. The patient continues to work with physical therapy. 4. Frequent ureteric stent exchange. The patient was scheduled for stent placement by Dr. Ibrahim on 12/28/2016. Due to the fall resulting in current hospitalization, the patient's schedule has been delayed. Once the patient is more medically stable, we will contact Dr. Ibrahim to arrange the followup. 5. Chronic obstructive pulmonary disease (COPD). The patient can have nebulizer as needed. No sign of any exacerbation at this moment. 6. History of colon cancer, status post hemicolectomy. 7. Anemia of chronic disease. Continue to monitor hemoglobin and hematocrit. No significant changes of the hemoglobin and hematocrit. 8. History of hypertension. The patient's blood pressure is in the satisfactory range. Patient currently on amlodipine. 9. Deep venous thrombosis (DVT) prophylaxis. The patient is on heparin.
[2016-12-29] MEDS: VITAMIN B COMPLEX/VIT C CAP PO SCH (21:56)
[2016-12-29] MEDS: VITAMIN D 1,000 INTERNATIONAL UNITS TABLET PO SCH (21:56)
[2016-12-30] VITALS (7 sets, daily range): BP systolic 116–142; BP diastolic 55–67
[2016-12-30] MEDS: HEPARIN SOD (PORCINE) 5000 UNITS/ML VIAL SC SCH ×3 (05:26→21:31)
[2016-12-30] MEDS: SLF 3 ML SYR IV SCH ×3 (05:26→21:31)
[2016-12-30 05:29] LABS: MEAN CORPUSCULAR HEMOGLOBIN 31.7 pg (27.0-33.0); MEAN CORPUSCULAR HGB CONC 31.6 g/dl (32.0-36.5); MEAN CORPUSCULAR VOLUME 100.2 fl (80.0-96.0); RED CELL DISTRIBUTION WIDTH 13.9 % (11.5-14.5)
[2016-12-30 05:50] LABS: CALCIUM LEVEL 8.3 MG/DL (8.8-10.2); CREATININE FOR GFR 3.06 MG/DL (0.70-1.30); GLOMERULAR FILTRATION RATE 20.7 (>35); POTASSIUM SERUM 3.9 MEQ/L (3.5-5.1)
[2016-12-30] MEDS: LACTOBACILLUS ACIDOPHILUS CAP (BACID) PO SCH ×2 (07:50→21:31)
[2016-12-30] MEDS: FERROUS GLUCONATE 324 MG TAB PO SCH ×2 (07:50→09:00)
[2016-12-30] MEDS: SALMETEROL DISKUS 50MCG INHALER (SEREVENT) INH SCH ×2 (08:39→20:17)
[2016-12-30] MEDS ORDERED: ATENOLOL 25 MG TAB PO SCH (09:00)
[2016-12-30] MEDS: cefTRIAXone SOD 2 GM in D5W MINI-BAG PLUS 50 ML IV SCH ×2 (12:07→22:27)
--- NOTE | 2016-12-30 21:18 | IPN ---
DATE: 12/30/2016 SUBJECTIVE: The patient is seen and examined in the room today. Patient is sitting comfortably in the chair. Denies any weakness. The patient tried to walk in the hallway with assistance. No events reported on telemetry. OBJECTIVE: VITAL SIGNS: Temperature is 98.2, pulse is 96, respiration rate is 16, blood pressure is 116/55, pulse oximetry is 94% on room air. GENERAL: No sign of acute distress. Alert and oriented times three. HEENT: Normocephalic, atraumatic. Extraocular motor grossly intact. CARDIOVASCULAR: Positive S1, S2. Regular rate. Positive systolic murmur. LUNGS: Clear to auscultation bilaterally. No wheezes. No rhonchi. GASTROINTESTINAL: Abdomen is soft, nontender, nondistended. Bowel sounds present. MUSCULOSKELETAL: No edema. No sign of cyanosis. LABORATORY DATA: WBC 6, hemoglobin 8.3, hematocrit is 26.4, platelet count 269. Sodium is 144, potassium 3.6, chloride 105, carbon dioxide 30, BUN 23, creatinine is 3.06, GFR is 20.7, fasting glucose is 95, calcium 8.83, C-reactive protein is 6.61. ASSESSMENT AND PLAN: 1. Escherichia (E.) coli urinary tract infection. Urine culture was performed on 12/21/2016. Sensitivity was reviewed. The patient was started on Rocephin. Clinically, the patient has shown improvement. Vital signs stable at this moment. The patient will be evaluated by physical therapy (PT) to ensure home safety. 2. End-stage renal disease on dialysis. The patient's dialysis is on Sunday, Sunday, and Sunday. We appreciate nephrology's assistance. 3. Frequent falls. The patient is monitored on telemetry. The patient did have episodes of arrhythmia a few days ago; however, it is resolved. The patient will be evaluated by physical therapy (PT) to ensure that the patient has stability. The patient is also being checked for orthostasis. 4. Frequent ureteric stent exchange. The patient was scheduled for stent placement with Dr. Ibrahim on 12/28/2016. Due to the fall resulting in current hospitalization, the patient's schedule has been delayed. I have discussed the case with Dr. Ibrahim today. He will schedule an appointment on 01/11/2017. 5. Chronic obstructive pulmonary disease (COPD). The patient has been on nebulizer as needed. No sign of any exacerbation at this moment. 6. History of colon cancer, status post hemicolectomy. 7. Anemia of chronic disease. Continue to monitor hemoglobin and hematocrit. No significant changes. 8. History of hypertension. Blood pressure is in the satisfactory range. 9. Deep venous thrombosis (DVT) prophylaxis. On heparin.
[2016-12-30] MEDS: PANTOPRAZOLE 40MG TAB (PROTONIX) PO SCH (21:31)
[2016-12-30] MEDS: VITAMIN D 1,000 INTERNATIONAL UNITS TABLET PO SCH (21:31)
[2016-12-30] MEDS: VITAMIN B COMPLEX/VIT C CAP PO SCH (22:26)
[2016-12-31 04:45] VITALS: BP 151/71
[2016-12-31 05:46] LABS: MEAN CORPUSCULAR HEMOGLOBIN 31.9 pg (27.0-33.0); MEAN CORPUSCULAR HGB CONC 31.6 g/dl (32.0-36.5); MEAN CORPUSCULAR VOLUME 100.8 fl (80.0-96.0); RED CELL DISTRIBUTION WIDTH 14.2 % (11.5-14.5)
[2016-12-31 05:53] LABS: CALCIUM LEVEL 8.4 MG/DL (8.8-10.2); CREATININE FOR GFR 3.85 MG/DL (0.70-1.30); GLOMERULAR FILTRATION RATE 15.8 (>35)
[2016-12-31] MEDS: HEPARIN SOD (PORCINE) 5000 UNITS/ML VIAL SC SCH (06:00)
[2016-12-31] MEDS: SLF 3 ML SYR IV SCH (06:00)
[2016-12-31] MEDS: SALMETEROL DISKUS 50MCG INHALER (SEREVENT) INH SCH (07:14)
[2016-12-31 07:40] VITALS: BP 134/60
[2016-12-31] MEDS: LACTOBACILLUS ACIDOPHILUS CAP (BACID) PO SCH (09:28)
[2016-12-31] MEDS: FERROUS GLUCONATE 324 MG TAB PO SCH (09:28)
[2016-12-31] MEDS: cefTRIAXone SOD 2 GM in D5W MINI-BAG PLUS 50 ML IV SCH (11:09)
--- NOTE | 2016-12-31 17:59 | DSES ---
DATE OF ADMISSION: 12/28/2016 DATE OF DISCHARGE: 12/31/2016 PRIMARY CARE PROVIDER: Dr. Walker. CONSULTANTS: Threading Machine Setter. PROCEDURES: None. COMPLICATIONS: None. DISCHARGE DIAGNOSES: 1. Escherichia (E.) coli urinary tract infection (UTI). 2. Frequent falls due to active urinary tract infection. 3. End-stage renal disease on dialysis. 4. Frequent ureteric stent exchange. 5. Chronic obstructive pulmonary disease (COPD). 6. History of colon cancer status post hemicolectomy. 7. Anemia of chronic disease. 8. Hypertension. 9. Status post right-sided pneumonectomy. HOSPITALIZATION COURSE: The patient is an 86-year-old male who presented to [facility] on 12/28/2016, after a fall. The patient complained of upper extremity weakness and history of frequent falls. The patient was admitted to telemetry, and workup has been ordered. The patient did have active infection with urinalysis (UA) and culture performed on 12/21/2016. Intravenous (IV) antibiotic was started to treat the patient's active E. coli UTI. Also, circular sawyer helper was called. Initially the patient had very soft blood pressures and medical management was initiated to maintain the blood pressure. Nephrology consult for dialysis treatment. With medical management, the patient's infection is improving and the patient's muscle strength is also improving. The patient has been working with physical therapy. On 12/31/2016, the patient is determined medically stable for discharge with recommendation to followup with Dr. Ibrahim on 01/11/2017, for stent replacement. The patient is recommended to followup with the primary care provider, Dr. Walker, in 1-2 weeks. OBJECTIVE: VITAL SIGNS: Temperature 97.2, pulse is 95, respirations 18, blood pressure 134/60, pulse oximetry 99% on room air. LABORATORY DATA: WBC 6, hemoglobin 8.7, hematocrit 27.5, platelet count 299. Sodium is 142, potassium 4.0, chloride 104, carbon dioxide 29, BUN 36, creatinine 3.85, GFR is 15.8, fasting glucose 8.9, calcium 8.4. IMAGING: CT of the head without contrast on 12/28/2016, shows small-vessel ischemic disease. Moderate volume loss. Chest x-ray showed status post right-sided pneumonectomy. Old granulomatous disease. DISCHARGE MEDICATIONS: - amlodipine 10 mg by mouth twice a day - vitamin B complex one tablet by mouth every evening - cefazolin 500 mg by mouth every 12 hours; prescription was given by Dr. Ibrahim previously. He is recommending the patient finish course of antibiotics - ferrous gluconate 325 mg by mouth daily - ketoconazole topically twice a day as needed for rash - Striverdi one puff inhalation twice a day DISCHARGE INSTRUCTIONS: Discontinue lines. Discharge home. Activity as tolerated. The patient should ambulate with a walker. Low-salt diet as tolerated. The patient should followup with Dr. Ibrahim on 01/11/2017, for stent replacement. The patient is recommended to followup with primary care provider, Dr. Walker. DISCHARGE CONDITION: Stable. DISCHARGE TIME: Greater than 30 minutes.
--- NOTE | 2016-12-31 21:13 | IPN ---
DATE: 12/30/2016 SUBJECTIVE: Patient was seen and examined at the bedside today morning. He was sitting in the sofa. No apparent distress at this time. Patient tolerated the hemodialysis procedure well yesterday. REVIEW OF SYSTEMS: Patient denies any fevers, chills, rigors, headache, nausea, vomiting, chest pain, shortness of breath, pain in abdomen, constipation, diarrhea, weakness. Patient reports that he walked with the help of physical therapy today, and he had no problems. OBJECTIVE: Vital signs: Temperature is 98.2 degrees Fahrenheit, blood pressure is 116/55, pulse is 96, respiratory rate of 16, saturating 94% on room air. Intake and output: Urine output recorded is 150 mL so far today since overnight. Ultrafiltration with hemodialysis was 1 liter. Weight in the bed scale is 84 kg. PHYSICAL EXAMINATION: GENERAL: Patient is awake, alert, oriented times three, sitting in sofa. No apparent distress. HEAD AND NECK: Extraocular muscles intact. Pupils equally round and reactive to light. Mucous membranes are moist. Neck is supple. There is no jugular venous distention (JVD). CARDIOVASCULAR: S1, S2, regular rate. No murmur, rub, or gallop. RESPIRATORY: Lungs is clear to auscultation on left side. Patient has right-sided pneumonectomy. Patient has bronchial breath sounds on the right side. ABDOMEN: Abdomen is soft. Positive bowel sounds. Nontender. No organomegaly. MUSCULOSKELETAL: No clubbing or cyanosis. Pulses are 2+. CENTRAL NERVOUS SYSTEM: No focal neurological deficit. Power is 5/5 in bilateral upper extremities. SKIN: No rashes or ulcers. PSYCHIATRIC: Normal mood and affect. LABORATORY REVIEW: CBC showed a WBC of 6, hemoglobin 8.3, platelets are 269. BMP showed sodium 144, potassium 3.9, chloride 105, bicarbonate 30, BUN 23, creatinine is 3, calcium is 3. C-reactive protein is down to 6.6. CURRENT INPATIENT MEDICATIONS: Patient's medications were all reviewed by me. He continues to be on intravenous (IV) Rocephin. There is no other change in the medications today. ASSESSMENT: An 86-year-old male with past medical history of end-stage renal disease, on hemodialysis, history of chronic obstructive pulmonary disease (COPD), solitary functioning left lung status post right pneumonectomy, history of cancer of the prostate, causing bilateral ureteric obstruction, status post bilateral ureteric stents, which are changed every 3 months. Patient admitted at this time because of urinary tract infection and fall. PLAN: 1. Mechanical fall. Patient is being treated for urinary tract infection (UTI). He is not orthostatic, but his amlodipine has been stopped. Blood pressure in 140s systolic should be acceptable. Patient is also weak, and he is getting physical therapy at this time. Rest of the workup for syncope is negative so far. 2. End-stage renal disease, on hemodialysis. Patient's regular dialysis days are Sunday, Sunday, Sunday. He was dialyzed according to his schedule yesterday. No urgent need of hemodialysis today. 3. Frequent urinary tract infections (UTIs) and Escherichia (E) coli urinary tract infection. Patient is currently getting IV ceftriaxone. 4. Bilateral ureteric stents. Patient will get stent exchange, which are due to be exchanged right now. Patient could not go because of his recent sickness. 5. Anemia and end-stage renal disease. Hemoglobin is down to 8.3, which is suboptimal. If hemoglobin drops to below 8, patient will need packed red blood cells (PRBC) transfusion. Patient was given a dose of Aranesp 200 mcg with hemodialysis yesterday. 6. Hypertension. Patient's blood pressure is acceptable at this time. Continue to hold the antihypertensive medications at this time. DISCHARGE PLANNING: It is okay to discharge the patient from nephrology standpoint whenever he is cleared by physical therapy. Plan of care discussed with the hospitalist, Dr. Tameka Beaver.
--- NOTE | 2017-01-01 10:10 | IPN ---
DATE: 12/31/2016 SUBJECTIVE: The patient was seen and examined at the bedside this morning. He was getting his IV antibiotic infusion, however, he was sitting on the sofa. He denies any active complaints. He denies any dizziness and anymore falls. REVIEW OF SYSTEMS: The patient denies any fevers, chills, rigors, headache, nausea, vomiting chest pain, shortness of breath, dizziness or lightheadedness at this time. The rest of the review of systems is negative. OBJECTIVE: VITAL SIGNS: Temperature 97.2 degrees Fahrenheit, blood pressure is 134/60, pulse 95, respiratory rate 18, saturating 99% in room air. Intake and output: Urine output recorded as 260 yesterday 100 mL so far today since overnight. Weight on the bed scale is 79.6 kg. GENERAL: The patient is awake, alert, oriented times three sitting on the sofa in no apparent distress. HEAD/NECK EXAM: Extraocular muscles intact. Pupils equal, round, and reactive to light. The patient is hard of hearing. He is wearing an hearing aide. Neck is supple. There is no jugular venous distention. CARDIOVASCULAR: S1, S2. Regular rate. No murmur, rub or gallop. RESPIRATORY: Chest is clear to auscultation on the left side. The patient has right-sided pneumonectomy. There are only broken breath sounds on the right. ABDOMEN: Soft, positive bowel sounds. Nontender. No ascites. MUSCULOSKELETAL: No clubbing or cyanosis. Pulses are 2+. PRIVATE DUTY NURSE: No focal neurological deficit. Power is 5/5 in all extremities. PSYCH: Normal mood and affect. LAB REVIEW: CBC showed a WBC of 6. Hemoglobin 8.7, platelets 299. BMP: Sodium 142, potassium 4, chloride 104, bicarbonate 29, BUN 36, creatinine 3.8, calcium 8.4. Microbiology: Stool for occult blood is negative. CURRENT INPATIENT MEDICATIONS: The patient's medications are all reviewed by me. There is no change in the medications today as compared with yesterday. ASSESSMENT: 86-year-old male with the past medical history of endstage renal disease hemodialysis. 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 They are due for change now. The patient was admitted this time because of urinary tract infection and mechanical fall. PLAN: 1. Mechanical fall: The patient needs a walker to help him walk. His blood pressure medications were stopped because of possibility of hypotension causing fall. The rest of the syncope workup is negative so far. Urinary tract infection is being treated with antibiotics. 2. Endstage renal disease: On hemodialysis. The patient was dialyzed according to his regular schedule. Next hemodialysis session will be on Sunday, January 01, 2017. 3. Frequent urinary tract infection and recent E coli urinary tract infection. The patient is currently on IV ceftriaxone. Antibiotics can be switched to by mouth on discharge. 4. Bilateral ureteric stent: Stents are changed every 3 months. They are due to be changed now. The patient needs to followup with urology after discharge from the hospital. 5. Hypertension: The patient is 86 years old. His blood pressure up to 150 systolic is acceptable antihypertensive medications are on hold because of recent history of falls. 6. Discharge planning: It is okay to discharge the patient from a nephrology standpoint. He will be dialyzed tomorrow as an outpatient.
[2017-01-04] MEDS ORDERED: MULT1TAB10 PO (07:39)
[2017-03-30] MEDS ORDERED: NIZO2SHA TOP (15:24)
[2017-03-30] MEDS ORDERED: NITR100C2 PO (15:24)
[2017-03-30] MEDS ORDERED: VP-V1TAB PO (15:24)
== END 2016-12-31 13:33 | disposition home or self-care (01) | DRG 91 ==
LOC: EDBD 06:22 → M ED 06:22 → M ED INP 10:18 → M PCU 14:18 → M MSPAV 12-31 07:53
PROVIDERS: ADMIT Internal Medicine; ATTEND Internal Medicine
PROC: 5A1D60Z (ICD-10-PCS; principal; 2016-12-29)
DX: R29.6 Repeated falls (principal); N18.6 End stage renal disease; N25.81 Secondary hyperparathyroidism of renal origin; N39.0 Urinary tract infection, site not specified; D63.1 Anemia in chronic kidney disease; B96.20 Unspecified Escherichia coli [E. coli] as the cause of diseases classified elsewhere; R53.1 Weakness; I95.9 Hypotension, unspecified; H91.93 Unspecified hearing loss, bilateral; J44.9 Chronic obstructive pulmonary disease, unspecified; Z85.118 Personal history of other malignant neoplasm of bronchus and lung; Z87.440 Personal history of urinary (tract) infections; Z90.49 Acquired absence of other specified parts of digestive tract; Z85.038 Personal history of other malignant neoplasm of large intestine; Z79.899 Other long term (current) drug therapy; Z96.0 Presence of urogenital implants; Z99.2 Dependence on renal dialysis; Z87.891 Personal history of nicotine dependence; Z90.2 Acquired absence of lung [part of]; Z85.46 Personal history of malignant neoplasm of prostate

== ENCOUNTER → 2017-01-05 | Outpatient (REF) | payer MEDICARE ==
[~2017-01-05] MED LIST changes: +CEPH500C PO; +MULT1TAB10 PO; +NITR100C2 PO; +NIZO2SHA EXT; +VP-V1TAB PO
== END ==
LOC: M SMT 13:17
PROVIDERS: ATTEND Urology
DX: N39.0 Urinary tract infection, site not specified (principal)

== ENCOUNTER 2017-01-11 07:42 | Day surgery (SDC) | payer MEDICARE ==
[~2017-01-11] VITALS: Ht 177.8 cm; Wt 78.9 kg
[~2017-01-11 07:42] MED LIST changes: +CONRAY-60 60% 50ML VIAL (Q9961) As Ordered ONE; -NITR100C2 PO; -VP-V1TAB PO
[2017-01-11] MEDS ORDERED: D5W/0.2% SODIUM CHLORIDE 250 ML IV ONE (08:00)
[2017-01-11] MEDS ORDERED: MIDAZOLAM INJ 2 MG/2 ML VIAL (J2250) As Ordered ONE (09:37)
[2017-01-11] MEDS ORDERED: fentaNYL 100 MCG/2 ML INJECTION (J3010) As Ordered ONE (09:38)
[2017-01-11] MEDS ORDERED: LIDOCAINE 2% 5ML JELLY UROJET As Ordered ONE (10:05)
[2017-01-11 11:55] VITALS: BP 120/58
--- NOTE | 2017-01-11 13:21 | REP ---
Retrograde pyelogram: Three views. History: Ureteral obstruction. 42 seconds of fluoroscopy time is reported. Findings: A sequence of three last image hold fluoro spot views of the abdomen document bilateral ureteral stent placement and contrast injection. Signed by João Crystal MD 01/11/2017 01:39 P
--- NOTE | 2017-01-14 08:07 | RO ---
DATE OF PROCEDURE: 01/11/2017 PREPROCEDURE DIAGNOSIS: Bilateral ureteral obstruction. POSTPROCEDURE DIAGNOSIS: Bilateral ureteral obstruction. PROCEDURE: Cystoscopy, bilateral ureteral stent exchange, bilateral retrograde pyelogram and intraoperative interpretation of images. SURGEON: Gokul Ibrahim MD NURSING CARE ATTENDANT: None. ANESTHESIA: Monitored anesthesia care (MAC) OPERATIVE INDICATIONS: This is an 86-year-old male with bilateral ureteral obstruction due to his prostate. This is managed with chronic ureteral stenting. He is here today for routine 3 month stent exchange. DESCRIPTION OF PROCEDURE: The patient was brought to the operating room and MAC anesthesia was administered. Prophylactic antibiotics were infused. He was then placed in the dorsal lithotomy position and prepped and draped in the usual sterile fashion. A rigid cystoscope was inserted through the urethral meatus and advanced into the bladder. Once within the bladder, the previously placed stents were seen. A guidewire was then advanced up the left collecting system along side the previously placed stent. The stent was then removed leaving the wire in place. Next, an open ended ureteral catheter was advanced over the wire up to the left collecting system. A retrograde pyelogram was performed and was notable for mild left hydronephrosis with no extravasation. I then advanced the wire back up the open-ended ureteral catheter and the wire was utilized to advance a #7-Polish x 22-32 cm JJ ureteral stent up to the left collecting system. The wire was then removed and there were adequate curls of the stent in the left renal pelvis and n the bladder. We then turned our attention to the right side. At this point, the wire was then advanced up the right collecting system. The stent was removed leaving the wire in place. We then advanced an open-ended ureteral catheter over the wire and then the wire was removed. The ureteral catheter was utilized to perform a retrograde pyelogram. This was notable for mild right hydronephrosis with no extravasation. We then advanced the wire back up the open-ended ureteral catheter. The open-ended ureteral catheter was removed leaving the wire in place. We then utilized the wire to advance another #7-Polish x 22-32 cm JJ ureteral stent up to the right collecting system. The wire was then removed and there were adequate curls of the stent in the right renal pelvis and in the bladder. The bladder was then emptied of all fluids. This marked the conclusion of the procedure. The patient was then taken out of the dorsal lithotomy position, awakened from anesthesia and transported to the recovery room in stable condition. ESTIMATED BLOOD LOSS: 0 mL COMPLICATIONS: None. SPECIMENS: None. PLAN: The patient is discharged home and followup in the clinic in approximately two months. At that time he will be set up for his next stent exchange, which will be three months from now. ORA
[2017-03-30] MEDS ORDERED: NIZO2SHA TOP (15:24)
[2017-03-30] MEDS ORDERED: NITR100C2 PO (15:24)
[2017-03-30] MEDS ORDERED: VP-V1TAB PO (15:24)
== END 2017-01-11 11:55 | disposition home or self-care (01) ==
LOC: M SDC 07:42
PROVIDERS: ATTEND Urology
DX: N13.5 Crossing vessel and stricture of ureter without hydronephrosis (principal); I12.0 Hypertensive chronic kidney disease with stage 5 chronic kidney disease or end stage renal disease; J44.9 Chronic obstructive pulmonary disease, unspecified; R39.15 Urgency of urination; R35.0 Frequency of micturition; R32 Unspecified urinary incontinence; T88.59XD Other complications of anesthesia, subsequent encounter; K21.9 Gastro-esophageal reflux disease without esophagitis; D64.9 Anemia, unspecified; R23.3 Spontaneous ecchymoses; R06.02 Shortness of breath; M12.9 Arthropathy, unspecified; L21.9 Seborrheic dermatitis, unspecified; N18.6 End stage renal disease; C61 Malignant neoplasm of prostate; Z79.899 Other long term (current) drug therapy; Z85.030 Personal history of malignant carcinoid tumor of large intestine; Z87.891 Personal history of nicotine dependence; Z96.651 Presence of right artificial knee joint; Z96.643 Presence of artificial hip joint, bilateral; Z92.3 Personal history of irradiation
CPT/HCPCS: 36415; 52332; 74420; 84132; C1769; C2617; J0690; J2250; J3010; Q9961

== ENCOUNTER → 2017-01-23 | Outpatient (CLI) | payer MEDICARE ==
[~2017-01-23] MED LIST changes: -CONRAY-60 60% 50ML VIAL (Q9961) As Ordered ONE; +NITR100C2 PO; +VP-V1TAB PO
--- NOTE | 2017-01-23 15:49 | REP ---
CHEST, TWO VIEWS: HISTORY: COPD. COMPARISON: 12/28/2016 The patient is status post right pneumonectomy. There is shift of the mediastinal structures to the right. There is opacification of the right hemithorax. Calcified granuloma are present in the left lung. Degenerative change is present in the thoracic spine and shoulders. The bony structure is osteopenic. IMPRESSION: 1. The patient is status posts right pneumonectomy. 2. Old granulomatous disease. Signed by Marek Chino MD 01/23/2017 03:50 P
== END ==
LOC: M RAD 15:24
PROVIDERS: ATTEND Emergency Medicine
DX: J44.9 Chronic obstructive pulmonary disease, unspecified (principal)

== ENCOUNTER → 2017-03-24 | Outpatient (CLI) | payer MEDICARE ==
[~2017-03-24] MED LIST changes: +KETO2CR TOP; +VITA-182 PO
[2017-03-24 11:35] LABS: MEAN CORPUSCULAR HEMOGLOBIN 32.7 pg (27.0-33.0); MEAN CORPUSCULAR HGB CONC 32.9 g/dl (32.0-36.5); MEAN CORPUSCULAR VOLUME 99.4 fl (80.0-96.0); PLATELET COUNT, AUTOMATED 200 10^3/uL (150-450); WHITE BLOOD COUNT 8.1 10^3/uL (4.0-10.0)
[2017-03-24 11:46] LABS: INR 1.04
[2017-03-24 12:06] LABS: CALCIUM LEVEL 8.5 MG/DL (8.8-10.2); GLOMERULAR FILTRATION RATE 21.1 (>35)
== END ==
LOC: M LAB 11:15
PROVIDERS: ATTEND Nurse Practitioner Women's Health
DX: Z01.818 Encounter for other preprocedural examination (principal); N13.5 Crossing vessel and stricture of ureter without hydronephrosis; Z79.899 Other long term (current) drug therapy

== ENCOUNTER 2017-04-05 08:40 | Day surgery (SDC) | payer MEDICARE ==
[~2017-04-05] VITALS: Ht 177.8 cm; Wt 79.4 kg
[~2017-04-05 08:40] MED LIST changes: -KETO2CR TOP; -VITA-182 PO
[2017-04-05] MEDS ORDERED: D5W/0.2% SODIUM CHLORIDE 250 ML IV ONE (09:00)
[2017-04-05] MEDS ORDERED: MIDAZOLAM INJ 2 MG/2 ML VIAL (J2250) As Ordered ONE (10:37)
[2017-04-05] MEDS ORDERED: PROPOFOL 200 MG/20 ML VIAL As Ordered ONE (10:37)
[2017-04-05] MEDS ORDERED: ONDANSETRON 4MG/2ML VIAL (J2405) As Ordered ONE (10:37)
[2017-04-05] MEDS ORDERED: LIDOCAINE 2% INJ 100 MG/5 ML SDV (FOR ANES.) As Ordered ONE (10:37)
[2017-04-05] MEDS ORDERED: fentaNYL 100 MCG/2 ML INJECTION (J3010) As Ordered ONE (10:37)
[2017-04-05] MEDS ORDERED: CONRAY-60 60% 50ML VIAL (Q9961) As Ordered ONE (10:59)
[2017-04-05] MEDS ORDERED: LIDOCAINE 2% 5ML JELLY UROJET As Ordered ONE (10:59)
[2017-04-05] MEDS ORDERED: ACETAMINOPHEN TAB 650MG DOSE (2X325MG) PO PRN (12:00)
[2017-04-05] MEDS ORDERED: LR 1,000 ML IV SCH (12:00)
[2017-04-05] MEDS ORDERED: ONDANSETRON 4MG/2ML VIAL (J2405) IV PRN (12:00)
[2017-04-05] MEDS ORDERED: PERCOCET 5MG/325MG TAB PO PRN (12:00)
--- NOTE | 2017-04-05 12:19 | REP ---
Retrograde pyelogram: Four views. History: Bilateral ureteral obstruction. 1 minute 12 seconds of fluoroscopy time is reported. Findings: A sequence of four last image hold fluoroscopic spot radiographs of the abdomen document bilateral ureteral cannulation, contrast injection, and double pigtail ureteral stent placement. Signed by João Crystal MD 04/05/2017 05:21 P
[2017-04-05 13:10] VITALS: BP 145/65
--- NOTE | 2017-04-06 12:32 | RO ---
DATE OF PROCEDURE: 04/05/2017 PREPROCEDURE DIAGNOSIS: Bilateral ureteral obstruction. POSTPROCEDURE DIAGNOSIS: Bilateral ureteral obstruction. PROCEDURE: Cystoscopy, bilateral ureteral stent exchange, bilateral retrograde pyelograms with intraoperative interpretation of images. SURGEON: Dr. Gokul Ibrahim ELECTRICAL SOFTWARE ENGINEER: None. ANESTHESIA: Monitored anesthesia care (MAC). OPERATIVE INDICATIONS: This is an 87-year-old male with bilateral ureteral obstruction managed with chronic ureteral stenting. He was brought today to the operating room for routine stent exchange. DESCRIPTION OF PROCEDURE: The patient was brought to the operating room and MAC anesthesia was administered. Prophylactic antibiotics were infused. He was then placed in dorsal lithotomy position and prepped and draped in the usual sterile fashion. A rigid cystoscope was inserted into the urethral meatus and advanced to the bladder. Previously placed stents were seen. The left ureteral stent was then grasped and withdrawn until the distal end was seen protruding from the urethral meatus. I then advanced a wire up the left upper stent and up the collecting system. The stent was then removed leaving the wire in place. Next, an open ended ureteral catheter was advanced through the wire up into the left collecting system. The wire was then removed and the ureteral catheter utilized to shoot a retrograde pyelogram. This was notable for mild hydronephrosis and no extravasation. At this point, the wire was advanced back up into the left collecting system and the ureteral catheter removed. The wire was then utilized to advance a 7 [place] x 22-32 cm JJ ureteral stent up the left collecting system. The wire was then removed and there were adequate curls of the stent in the left renal pelvis and in the bladder. Next, I removed the right ureteral stent as well. A wire was advanced up the stent and up to the right collecting system. The stent was then removed leaving the wire in place. Next, a ureteral catheter was advanced over the wire up into the right collecting system. The wire was then removed and the ureteral catheter utilized to shoot a retrograde pyelogram. This was also notable for mild hydronephrosis and no extravasation. I then advanced the wire back up the ureteral catheter and the ureteral catheter was then removed leaving the wire in place. I then utilized the wire to advance a 7 [place] x 22-32 JJ ureteral stent up into the right collecting system. The wire was then removed and there were adequate curls of the stent in the right renal pelvis and in the bladder. The bladder was emptied of all fluid. This marked the conclusion of the procedure. The patient was then taken out of dorsal lithotomy position, awakened from anesthesia and transported to the recovery room in stable condition. Estimated blood loss: 0 mL. Complications: None. Specimen: None. Plan: The patient will follow up in the clinic in approximately 2 months to set up for his next ureteral stent exchange.
== END 2017-04-05 13:40 | disposition home or self-care (01) ==
LOC: M SDC 08:40
PROVIDERS: ATTEND Urology
DX: N13.8 Other obstructive and reflux uropathy (principal); I10 Essential (primary) hypertension; K21.9 Gastro-esophageal reflux disease without esophagitis; D64.9 Anemia, unspecified; Z85.038 Personal history of other malignant neoplasm of large intestine; F32.9 Major depressive disorder, single episode, unspecified; Z85.118 Personal history of other malignant neoplasm of bronchus and lung; Z92.3 Personal history of irradiation; Z85.46 Personal history of malignant neoplasm of prostate; Z87.891 Personal history of nicotine dependence; Z79.899 Other long term (current) drug therapy
CPT/HCPCS: 36415; 52332; 74420; 84132; C2617; J0690; J2250; J2405; J3010; Q9961

== ENCOUNTER 2017-04-09 08:28 | Inpatient (IN) | payer MEDICARE ==
[~2017-04-09] VITALS: Ht 175.3 cm; Wt 63.3 kg
--- NOTE | 2017-04-09 09:23 | ED PDOC ---
Post-Departure Follow-Up PT'S SON CALLED ON THE PHONE TO EXPLAIN REASONING FOR PT'S VISIT. SON STATED PT FELL TWICE YESTERDAY AT HOME, WHERE HE LIVES WITH HIS 89 YEAR OLD . EMS WAS CALLED YESTERDAY BUT THE PT REFUSED TO BE SEEN AT THAT TIME. PT IS ALSO DUE FOR DIALYSIS TODAY AT 11:00AM. SON STATED PT SEEMED MORE CONGESTED THAN NORMAL WHEN EATING DINNER LAST NIGHT. PT ONLY HAS 1 LUNG DUE TO PRIOR LUNG CA. PT HAS ALSO BEEN HAVING INCREASING DIFFICULTY WITH AMBULATION AROUND HIS HOME WITH HIS WALKER AND IS COMPLAINING OF LEG PAIN. "HE SEEMS WEAKER", PER SON. PT ALSO HAD HIS URETERAL STENTS CHANGED OUT WITH DR. SANTOS LAST WEEK ON 04/05/17. SON BELIEVES THAT THIS PT NEEDS TO BE PLACED OR HAVE O.T. EVALUATE THIS PT. THIS PULP BLEACHER EXPLAINED THAT ADMISSIONS ARE MUCH EASIER WITH A MEDICAL DIAGNOSIS INSTEAD OF A SOCIAL ADMISSION AND THAT HE WOULD BE WORKED UP FOR REASONS FOR HIS FALL. SON STATED HE WOULD BE IN TO SEE PT AT 1300 TODAY. PAT RENE PA-C Apr 09, 2017 09:23
--- NOTE | 2017-04-09 09:52 | REP ---
Clinical: Trauma. Fall. Back pain. Technique: AP, lateral, and swimmer's views of the thoracic spine. Findings: Moderate/advanced degenerative changes include diffuse osteopenia and bridging osteophytosis along with mildly exaggerated kyphosis. No obvious acute fracture / compression injury or subluxation. Impression: Osteopenia and degenerative changes as noted above. No obvious acute fracture / compression injury or subluxation. Signed by Nitin Alston MD 04/09/2017 09:43 A
--- NOTE | 2017-04-09 09:53 | REP ---
Clinical: Chest pain with trauma/fall. Technique: AP and lateral. Comparison: 01/23/2017. Findings: Diffuse opacification, volume loss and calcified pleural plaques involving the right hemithorax with associated ipsilateral mediastinal shift remains stable. Visualized portions of the mediastinum and cardiac silhouette are unchanged. The left hemithorax appears relatively well aerated and without obvious acute consolidation, effusion, or pneumothorax. Skeletal structures demonstrate osteopenia and degenerative changes. Impression: Chronic stable changes. No obvious acute cardiopulmonary process. Signed by Nitin Alston MD 04/09/2017 09:45 A
[2017-04-09 10:00] LABS: BASO % 0.3 % (0.0-1.0); EOS # 0.1 10^3/uL (0.0-0.50); EOS % 0.4 % (0.0-3.0); IMMATURE GRANULOCYTE % 0.4 % (0-0); LYMPH # 0.5 10^3/uL (1.5-4.5); LYMPH % 3.6 % (24.0-44.0); MEAN CORPUSCULAR HEMOGLOBIN 32.7 pg (27.0-33.0); MEAN CORPUSCULAR HGB CONC 32.4 g/dl (32.0-36.5); MEAN CORPUSCULAR VOLUME 100.8 fl (80.0-96.0); MONO # 0.9 10^3/uL (0.0-0.8); MONO % 6.5 % (0.0-5.0); NEUTROPHILS % 88.8 % (36.0-66.0); PLATELET COUNT, AUTOMATED 269 10^3/uL (150-450); RED CELL DISTRIBUTION WIDTH 14.1 % (11.5-14.5); WHITE BLOOD COUNT 13.5 10^3/uL (4.0-10.0)
[2017-04-09 10:04] LABS: MICROSCOPIC EXAM PERFORMED; MICROSCOPIC INDICATED? MAN YES (NO)
[2017-04-09 10:08] LABS: HYALINE CAST, URINE NONE SEEN /lpf (0-1); SQUAMOUS EPITHELIAL CELL URINE NONE SEEN /hpf (SMALL AMT); WBC, URINE TNTC /hpf (0-3)
[2017-04-09 10:09] LABS: BACTERIA, URINE LARGE AMOUNT
[2017-04-09 10:31] LABS: ALBUMIN/GLOBULIN RATIO 1.03 (1.00-1.93); BILIRUBIN,TOTAL 0.5 MG/DL (0.2-1.0); CALCIUM LEVEL 8.6 MG/DL (8.8-10.2); CREATININE FOR GFR 3.95 MG/DL (0.70-1.30); GLOMERULAR FILTRATION RATE 15.3 (>35); MAGNESIUM LEVEL 2.2 MG/DL (1.8-2.4); TOTAL PROTEIN 5.9 GM/DL (6.4-8.2)
--- NOTE | 2017-04-09 10:50 | REP ---
CT Head without contrast HISTORY: Fall COMPARISON: 12/28/2016 Areas of decreased attenuation are present in the periventricular white matter. This represents small-vessel ischemic disease. There is no intraparenchymal hemorrhage, acute infarct, mass or midline shift. The ventricular system and cortical sulci are dilated consistent with moderate volume loss. There is no extra cerebral collection. There is no fracture. The visualized sinuses are clear. IMPRESSION: 1. Small vessel ischemic disease per 2. Moderate volume loss. Signed by Marek Chino MD 04/09/2017 10:41 A
[2017-04-09] MEDS ORDERED: KETO2CR TOP (12:19)
[2017-04-09] MEDS ORDERED: VITA-182 PO (12:19)
[2017-04-09] MEDS ORDERED: IPRATROPIUM 0.5MG/ALBUTEROL 2.5MG INH SOL UD 3ML (DUONEB)(J7620) NEB PRN (13:15)
--- NOTE | 2017-04-09 13:53 | HPEPDOC ---
General Date of Admission 04/09/2017 Primary Care Physician: BERE NICHOLS MD Attending Physician: CORTNEY VALENTINE MD Chief Complaint The patient is a 87-year-old male admitted with a reason for visit of FALL. 87- year-old male presents to ED after falling yesterday in his house around 7 PM. Patient has PMH of ESRD (on dialysis Sunday, Sunday, Sunday), COPD, lung cancer s/p right pneumonectomy, frequent UTIs (on Macrobid for chronic UTIs, permanent ureteral stent exchanges by Dr. Ibrahim [id number], last performed this past ), history of colon cancer s/p hemicolectomy. Patient states he was getting out of the bathroom and felt weak and fell. Patient denies presyncopal symptoms including lightheadedness and dizziness. Patient fell backwards and hit the posterior edge of the head on the door, felt weak, and called the ambulance. Patient denies any cuts or bleeding. Patient denies loss of consciousness, loss of bowel or bladder control. Patient did not want to come to the hospital yesterday, but is here today because he still feels weak in his lower legs and his family is concerned about future falls. Patient was recently admitted for a fall on 12/28/2016. In the ED, imaging of head, neck, thoracic spine were negative. Vitals were WNL , but elevated white count of 13.5 was noted. Exam Limitations: Hard of hearing, Garbled speech Home Medications Scheduled (Kalie-Bid Probiotic) 1 Tab Tab, 1 TAB PO BID, (Reported) (Driver Examiner-Chris Rx 1 mg) 1 Tab Tab, 1 TAB PO DAILY, (Reported) B1/B2/B3/B5/B6 (Vitamin B Complex) 1 Tab Tab, 1 TAB PO DAILY, (Reported) Cholecalciferol (Vitamin D3) 10,000 Unit Tab, 10,000 UNIT PO QWEEK, (Reported) QPM: SUNDAYS Cholecalciferol (Vitamin D3) 1,000 Unit Cap, 2,000 UNIT PO DAILY, (Reported) Ferrous Gluconate (Ferrous Gluconate) 324 Mg Tab, 324 MG PO BID, (Reported) Ketoconazole (Ketoconazole) 2 % Cre, 1 DOSE TOP BID, (Reported) APPLY TO FOREARMS Nitrofurantoin Macrocrystals (Nitrofurantoin Macrocrystals) 100 Mg Cap, 100 MG PO DAILY, (Reported) Allergies Coded Allergies: No Known Allergies (Verified , 01/04/17) Past Medical History Medical History 1. COPD 2. History of lung cancer, status post right pneumonectomy 3. Frequent urinary tract infections 4. ESRD on hemodialysis Sunday, Sunday, Sunday 5. Secondary hyperparathyroidism 6. 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 History of colon cancer, status post hemicolectomy Surgical History 1. Right pneumonectomy 2. Bilateral hip surgery 3. Right knee surgery 4. Hemicolectomy for colon cancer 5. Cholecystectomy 6. Multiple bilateral ureteral stent exchanges every [address] Ibrahim Social History CODE STATUS: DNR/DNI Lives at home with 94-year-old , and son Ambulates with rolling walker at home, and wheelchair in and out of the house. Smoking: Smoked 2 packs per day for over 20 years. Quit 25 years ago Alcohol: Denies Illicit substances: Denies Review of Symptoms Constitutional: Denies: Chills, Fever Eyes: Denies: Pain, Vision change ENT: Denies: Head Aches, Ear Pain, Dysphagia, Epistaxis Pulmonary: Denies: Dyspnea, Cough, Pleuritic Chest Pain Cardiovascular: Denies: Chest Pain, Palpitations, Orthopnea, Edema, Lt Headedness Gastrointestinal: Denies: Nausea, Vomiting, Abdominal Pain, Melena, Hematochezia Genitourinary: Denies: Dysuria, Hematuria Musculoskeletal: Reports: Leg Pain (bilateral), Joint Pain (bilateral hip), Denies: Shoulder Pain, Arm Pain, Hand Pain Neurological: Reports: Weakness (bilateral lower extremities), Denies: Numbness, Change in speech, Confusion Physical Examination General Exam: Positive: Alert, Cooperative, No Acute Distress Eye Exam: Positive: PERRLA, Conjunctiva & lids normal, EOMI, Negative: Ptosis ENT Exam: Positive: Mucous membr. moist/pink, Tongue Midline Neck Exam: Positive: Supple, Negative: JVD, thyromegaly, Lymphadenopathy Chest Exam: Positive: Wheezing (bilaterally), Diminished, Negative: Rales, Rhonchi Heart Exam: Positive: Rate Normal, Normal S1, Normal S2, Murmurs (systolic grade 2) Abdomen Exam: Positive: Normal bowel sounds, Soft, Negative: Tenderness Extremity Exam: Positive: Normal pulses, Negative: Cyanosis, Edema, Tenderness Skin Exam: Positive: Nl turgor and temperature Neuro Exam: Positive: Sensation Intact, Negative: Normal Speech (garbaled speech at baseline), Strength at 5/5 X4 ext (5/5 UE, 2/5 LE b/l due to pt feeling weak) Psych Exam: Positive: Mental status NL, Mood NL, Oriented x 3 Vital Signs Vital Signs Date Time Temp Pulse Resp B/P (MAP) Pulse Ox O2 Delivery O2 Flow Rate FiO2 04/09/17 11:39 97.9 24 Automatic Cuff (NIBP) Room Air 04/09/17 11:37 88 99 97 04/09/17 08:49 96 Laboratory Data Labs 24H Laboratory Tests 2 04/09/17 09:37: Immature Granulocyte % (Auto) 0.4H, White Blood Count 13.5H, Red Blood Count 3.61L, Hemoglobin 11.8L, Hematocrit 36.4L, Mean Corpuscular Volume 100.8H, Mean Corpuscular Hemoglobin 32.7, Mean Corpuscular Hemoglobin Concent 32.4, Red Cell Distribution Width 14.1, Platelet Count 269, Neutrophils (%) (Auto) 88.8H, Lymphocytes (%) (Auto) 3.6L, Monocytes (%) (Auto) 6.5H, Eosinophils (%) (Auto) 0.4, Basophils (%) (Auto) 0.3, Neutrophils # (Auto) 12.0H, Lymphocytes # (Auto) 0.5L, Monocytes # (Auto) 0.9H, Eosinophils # (Auto) 0.1, Basophils # (Auto) 0.0 , Immature Granulocyte # (Auto) 0.1H, Nucleated Red Blood Cells % (auto) 0.0, Bedside Urine Color (LAB) YELLOW, Bedside Urine Appearance (LAB) HAZYH, Bedside Urine pH (LAB) 7.0, Bedside Urine Specific [place] (LAB 1.010, Bedside Urine Protein (LAB) 2+H, Bedside Urine Glucose (UA) NEGATIVE, Bedside Urine Ketones ( LAB) NEGATIVE, Bedside Urine Blood POSITIVEH, Bedside Urine Nitrite (LAB) NEGATIVE, Bedside Urine Bilirubin (LAB) NEGATIVE, Bedside Urine Urobilinogen ( LAB) NORMAL, Bedside Urine Leukocyte Esterase (L POSITIVEH, Urine WBC TNTCH, Urine RBC 5-7H, Urine Squamous Epithelial Cells NONE SEEN, Urine Bacteria LARGE AMOUNTH, Urine Hyaline Casts NONE SEEN, Urine Sediment Examination PERFORMED, Anion Gap 8, Glomerular Filtration Rate 15.3L, Blood Urea Nitrogen 50H, Creatinine 3.95H, Sodium Level 143, Potassium Level 4.0, Chloride Level 106, Carbon Dioxide Level 29, Calcium Level 8.6L, Aspartate Amino Transf (AST/SGOT) 20, Alanine Aminotransferase (ALT/SGPT) 10L, Total Creatine Kinase 87, Alkaline Phosphatase 63, Total Bilirubin 0.5, Total Protein 5.9L, Albumin 3.0L, Magnesium Level 2.2, Creatine Kinase MB 3.0, Creatine Kinase MB Relative Index 3.44, Albumin/Globulin Ratio 1.03 CBC/BMP Laboratory Tests 04/09/17 09:37 Red Blood Count 3.61 L, Mean Corpuscular Volume 100.8 H, Mean Corpuscular Hemoglobin 32.7, Mean Corpuscular Hemoglobin Concent 32.4, Red Cell Distribution Width 14.1, Neutrophils (%) (Auto) 88.8 H, Lymphocytes (%) (Auto) 3.6 L, Monocytes (%) (Auto) 6.5 H, Eosinophils (%) (Auto) 0.4, Basophils (%) ( Auto) 0.3, Neutrophils # (Auto) 12.0 H, Lymphocytes # (Auto) 0.5 L, Monocytes # (Auto) 0.9 H, Eosinophils # (Auto) 0.1, Basophils # (Auto) 0.0, Calcium Level 8.6 L, Aspartate Amino Transf (AST/SGOT) 20, Alanine Aminotransferase (ALT/SGPT ) 10 L, Total Creatine Kinase 87, Alkaline Phosphatase 63, Total Bilirubin 0.5, Total Protein 5.9 L, Albumin 3.0 L Microbiology Microbiology 04/09/17 Urine Culture, Received Pending Assessment/Plan 1. Fall 2/2 deconditioning Patient has had multiple falls in the past. No LOC, lightheadedness, dizziness, chest pain, or other presyncopal symptoms, thus unlikely to be seizure, arrhythmia, stroke. Imaging of head, neck, and thoracic spine were negative. Orthostatics were negative. Patient feels weak in lower extremities, and normally uses roller and wheelchair at home. Suspected to be a musculoskeletal cause. PFS consulted for placement as patient is unable to care for self and 89- year-old at home. PT and OT to eval and treat for deconditioning. 2. UTI Patient has hx of frequent UTIs, supposed to be on Macrobid chronically but has not been compliant lately, and has ureteral stent exchange by Dr. Ibrahim every 3 months (mostly recently performed last ). Patient is afebrile, but has leukocytosis on admission and positive UA. Urine and blood cultures pending. Patient's home Macrobid is on hold, and pt is started on Rocephin and Azithromycin. Dr. Ibrahim was consulted and suggested there is no need to surgically intervene at this point, and to proceed with antibiotic tx. 3. ESRD pt regularly has hemodialysis on ,,. Nephrology consulted. Scheduled for dialysis today. Nephro diet. 4. Acute bronchitis Patient has an elevated white count and wheezing on physical exam. Continue Rocephin and Azithromycin, with duonebs & prednisone Respiratory panel & sputum cx pending 5. COPD hx no current exacerbation. Duoneb prn, prednisone 6. Hx lung cancer s/p right pneumonectomy 7. Hx colon cancer s/p hemicolectomy 8. DVT ppx heparin sq, HARSHA/SCD Plan / VTE VTE Prophylaxis Ordered?: Yes (heparin, HARSHA/SCD) GME ATTESTATION GME ATTESTATION My faculty preceptor for this patient encounter was physically present during the encounter and was fully available. All aspects of the patient interview, examination, medical decision making process, and medical care plan development were reviewed and approved by the faculty preceptor. The faculty preceptor is aware and concurs with the plan as stated in the body of this note and will attest to such by his/her cosignature. ATTENDING NOTE I have both independently examined this patient as well as reviewed the H&P. I have discussed in detail with the resident the findings and plan of treatment as documented in the residents note. I will continue to follow the patient and offer further guidance to the patients care as necessary during this hospital stay. RON Leahy DO Apr 09, 2017 13:49 CORTNEY VALENTINE MD Apr 10, 2017 11:56
[2017-04-09] MEDS ORDERED: cefTRIAXone SOD 1 GM in D5W 50 ML IV SCH ×2 (14:00→16:00)
[2017-04-09 14:35] VITALS: BP 186/74
[2017-04-09] MEDS: IPRATROPIUM 0.5MG/ALBUTEROL 2.5MG INH SOL UD 3ML (DUONEB)(J7620) NEB SCH ×2 (14:37→20:00)
[2017-04-09] MEDS: predniSONE 20 MG TAB PO SCH (14:52)
[2017-04-09] MEDS ORDERED: AZITHROMYCIN INJ 500 MG, VIAL MATE ADAPTER 1 EACH in D5W 250 ML IV SCH (15:00)
[2017-04-09] MEDS: VITAMIN B COMPLEX/VIT C CAP PO SCH (16:08)
--- NOTE | 2017-04-09 18:32 | ECGEPIP ---
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
[2017-04-09] MEDS: LACTOBACILLUS ACIDOPHILUS CAP (BACID) PO SCH (20:25)
[2017-04-09] MEDS: FERROUS GLUCONATE 324 MG TAB PO SCH (20:25)
[2017-04-09] MEDS: SENOKOT S TAB PO SCH (20:25)
[2017-04-09] MEDS: HEPARIN SOD (PORCINE) 5000 UNITS/ML VIAL SQ SCH (20:25)
[2017-04-09] MEDS: KETOCONAZOLE 2% CREAM TOP SCH (20:26)
[2017-04-09 22:00] VITALS: BP 150/75
[2017-04-10] MEDS: IPRATROPIUM 0.5MG/ALBUTEROL 2.5MG INH SOL UD 3ML (DUONEB)(J7620) NEB SCH ×4 (01:08→20:00)
[2017-04-10] MEDS ORDERED: CALCIUM CARBONATE 500 MG CHEW U/D PO PRN (03:30)
[2017-04-10] MEDS: ONDANSETRON 4 MG TAB (S0181) PO PRN ×2 (05:54→21:18)
[2017-04-10 06:00] VITALS: BP 160/79
[2017-04-10 06:36] LABS: MEAN CORPUSCULAR HEMOGLOBIN 32.1 pg (27.0-33.0); MEAN CORPUSCULAR HGB CONC 32.7 g/dl (32.0-36.5); MEAN CORPUSCULAR VOLUME 98.1 fl (80.0-96.0); PLATELET COUNT, AUTOMATED 305 10^3/uL (150-450); RED CELL DISTRIBUTION WIDTH 13.8 % (11.5-14.5); WHITE BLOOD COUNT 8.7 10^3/uL (4.0-10.0)
[2017-04-10 06:58] LABS: CALCIUM LEVEL 9.1 MG/DL (8.8-10.2); CREATININE FOR GFR 3.77 MG/DL (0.70-1.30); GLOMERULAR FILTRATION RATE 16.2 (>35); POTASSIUM SERUM 3.7 MEQ/L (3.5-5.1)
[2017-04-10] MEDS: VITAMIN B COMPLEX/VIT C CAP PO SCH (07:32)
[2017-04-10] MEDS: LACTOBACILLUS ACIDOPHILUS CAP (BACID) PO SCH ×2 (07:33→21:18)
[2017-04-10] MEDS: VITAMIN D 1,000 INTERNATIONAL UNITS TABLET PO SCH (07:33)
[2017-04-10] MEDS: SENOKOT S TAB PO SCH ×2 (07:33→21:18)
[2017-04-10] MEDS: FERROUS GLUCONATE 324 MG TAB PO SCH ×2 (07:33→21:18)
[2017-04-10] MEDS: predniSONE 20 MG TAB PO SCH (07:33)
[2017-04-10] MEDS: KETOCONAZOLE 2% CREAM TOP SCH ×2 (07:34→21:19)
[2017-04-10] MEDS: HEPARIN SOD (PORCINE) 5000 UNITS/ML VIAL SQ SCH ×2 (09:00→21:54)
[2017-04-10] MEDS ORDERED: HEPARIN 1,000 UNITS/ML 10ML VIAL (FOR RADIOLOGY& DIALYSIS ONLY) IV ONE (13:00)
[2017-04-10 14:00] VITALS: BP 152/62
--- NOTE | 2017-04-10 15:41 | IPNPDOC ---
Subjective Date Seen The patient was seen on 04/10/17. Subjective Chief Complaint/HPI The patient is a 87-year-old male admitted with a reason for visit of Fall Uti. Pt examined bedside while at dialysis. States he is feeling slightly improved in lower extremity weakness since fall. No acute complaints. No events overnight. Constitutional: Denies: Chills, Fever Eyes: Denies: Pain, Vision change ENT: Denies: Head Aches, Dysphagia Pulmonary: Denies: Dyspnea, Cough Cardiovascular: Denies: Chest Pain, Palpitations, Edema, Lt Headedness Gastrointestinal: Denies: Nausea, Vomiting, Abdominal Pain Neurological: Denies: Weakness Objective Physical Examination General Exam: Positive: Alert, Cooperative, No Acute Distress Eye Exam: Positive: PERRLA, Conjunctiva & lids normal, EOMI, Negative: Ptosis ENT Exam: Positive: Mucous membr. moist/pink, Tongue Midline Neck Exam: Positive: Supple, Negative: JVD, thyromegaly, Lymphadenopathy Chest Exam: Positive: Diminished, Negative: Rales, Rhonchi, Wheezing Heart Exam: Positive: Rate Normal, Normal S1, Normal S2, Murmurs (systolic grade 2) Abdomen Exam: Positive: Normal bowel sounds, Soft, Negative: Tenderness Extremity Exam: Positive: Normal pulses, Negative: Cyanosis, Edema, Tenderness Skin Exam: Positive: Nl turgor and temperature Neuro Exam: Positive: Sensation Intact, Negative: Normal Speech (garbaled speech at baseline), Strength at 5/5 X4 ext (5/5 UE, 2/5 LE b/l due to pt feeling weak) Psych Exam: Positive: Mental status NL, Mood NL, Oriented x 3 Assessment /Plan Assessment Fall 2/2 deconditioning Patient has had multiple falls in the past. PFS consulted for placement as patient is unable to care for self and 89-year-old at home PT and OT to eval and treat for deconditioning MRI w/o contrast ordered to r/o CVA per reports of pt being off balance and having difficulty with spatial orientation UTI hx of frequent UTIs, supposed to be on Macrobid chronically but has not been compliant lately stop Rocephin and Azithromycin, as pt is asymptomatic, afebrile, and WBC normal Macrobid on hold per Pharmacy since it is not beneficial in hemodialysis pts ESRD pt regularly has hemodialysis on ,,. Was unable to get dialysis yesterday due to scheduling, but underwent dialysis today, likely again on & Sunday, then to resume MWF next week. Creatinine elevated, but improving at 3.77. Baseline is ~2.5-3.0. Nephrology consulted Nephro diet Leukocytosis Elevated white count from admission resolved. No wheezing on exam. Pt afebrile, vitals WNL. Rocephin and Azithromycin discontinued. sputum and urine cx pending. Blood cultures negative at 24hrs COPD hx no current exacerbation. Duoneb prn, prednisone Hx lung cancer s/p right pneumonectomy Hx colon cancer s/p hemicolectomy DVT ppx heparin sq, HARSHA/SCD Plan/VTE VTE Prophylaxis Ordered?: Yes (heparin, HARSHA/SCD) VS, I&O, 24H, Fishbone Vital Signs/I&O Vital Signs Date Time Temp Pulse Resp B/P (MAP) Pulse Ox O2 Delivery O2 Flow Rate FiO2 04/10/17 13:06 Room Air 04/10/17 06:00 98.0 98 18 160/79 (106) 96 I&O- Last 24 Hours up to 6 AM 04/11/17 06:00 Intake Total 200 ml Balance 200 ml Laboratory Data 24H LABS Laboratory Tests 2 04/10/17 06:16: Nucleated Red Blood Cells % (auto) 0.0, Anion Gap 8, Glomerular Filtration Rate 16.2L, Blood Urea Nitrogen 56H, Creatinine 3.77H, Sodium Level 140, Potassium Level 3.7, Chloride Level 105, Carbon Dioxide Level 27, Calcium Level 9.1 CBC/BMP Laboratory Tests 04/10/17 06:16 Red Blood Count 3.74 L, Mean Corpuscular Volume 98.1 H, Mean Corpuscular Hemoglobin 32.1, Mean Corpuscular Hemoglobin Concent 32.7, Red Cell Distribution Width 13.8, Calcium Level 9.1 Microbiology Microbiology 04/09/17 Blood Culture - Preliminary, Resulted No growth after 24 hours . All specim... 04/09/17 Blood Culture - Preliminary, Resulted No growth after 24 hours . All specim... 04/10/17 Gram Stain - Final, Complete 04/10/17 Sputum Culture - Final, Complete 04/09/17 Urine Culture, Received Pending GME ATTESTATION GME ATTESTATION My faculty preceptor for this patient encounter was physically present during the encounter and was fully available. All aspects of the patient interview, examination, medical decision making process, and medical care plan development were reviewed and approved by the faculty preceptor. The faculty preceptor is aware and concurs with the plan as stated in the body of this note and will attest to such by his/her cosignature. RON GRULLON DO Apr 10, 2017 14:32
--- NOTE | 2017-04-10 17:53 | CR ---
DATE OF CONSULTATION: 04/10/2017 REQUESTING PHYSICIAN: Dr. Roddy Graves REASON FOR CONSULT: Management of end-stage renal disease, on hemodialysis. CHIEF COMPLAINT: weakness and fall HPI : Pt is an elderly male with pmhx of ESRD on HD Sunday, Sunday, Sunday maintenance schedule, with scheduled ureteral stent exchanges q3 monthly chronically with urology with last stent exchange within the past week, history of colon cancer status post hemicolectomy, COPD, and hx of recurrent falls. The patient presented to the (ER) yesterday after a fall at home in his bedroom. The patient stated that he felt very weak prior to the fall. He denied any presyncopal symptoms or lightheadedness. He states he hit his head on the bathroom door. He denied any loss of consciousness. His last admission was in December and was also prompted by a fall in the setting of urinary tract infection. In the emergency room, the patient had CT head and thoracic spine with no acute findings. Labs revealed an elevated white count and urinalysis was positive for leukocyte esterase, white blood cells and bacteria. He was hemodynamically stable. I see the patient now on hemodialysis, receiving his maintenance treatment and comfortable, in no acute distress. He is concerned about his recurrent falls. PAST MEDICAL HISTORY: End-stage renal disease, on hemodialysis Sunday, Sunday, Sunday. History of lung cancer, status post right pneumonectomy. Chronic obstructive pulmonary disease (COPD). Recurrent urinary tract infections with every 3 month ureteral stent exchanges bilaterally. Secondary hyperparathyroidism. Anemia of chronic kidney disease. History of colon cancer, status post hemicolectomy. SURGICAL HISTORY: Status post hip surgery. History of right knee surgery. Status post hemicolectomy for colon cancer. Status post cholecystectomy. History of bilateral ureteral stent exchange every 3 months by urology. Status post right pneumonectomy. Fistula placement. ALLERGIES: No known allergies. HOME MEDICATIONS: reviewed and include - vitamin B complex one tab daily - macrobid by mouth daily - probiotic one tablet by mouth twice a day - ferrous - vitamin D 2000 units daily FAMILY HISTORY: No significant family history of end-stage renal disease. SOCIAL HISTORY: Ex-smoker. No drug or alcohol use. Lives at home with his . Son lives nearby and visits frequently. REVIEW OF SYSTEMS: CONSTITUTIONAL: Denies fevers, chills. EYES: Denies pain or visual blurring or change. ENT: He denies sore throat, epistaxis. 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 PULMONARY: He denies dyspnea, cough. CARDIOVASCULAR: Denies chest pain, palpitations, edema, presyncopal symptoms. GASTROINTESTINAL (GI): Denies nausea, vomiting, diarrhea. GENITOURINARY: History of chronic recurrent urinary tract infections. Currently denies any dysuria. MUSCULOSKELETAL: He ambulates with a rolling walker at home and has had recurrent falls. NEUROLOGIC: He complains of weakness in the lower extremities. Denies seizure or confusion. PHYSICAL EXAMINATION: Temperature 98.0, pulse 98, respiratory rate 18, blood pressure 160/79, saturating 96% on room air. INTAKE AND OUTPUT: Hemodialysis removed 1.5 kg UF. General: pt was seen on dialysis receiving his maintenance treatment, in no distress. HEAD AND NECK: Extraocular muscles are intact. The neck is supple. The mucous membranes are moist. CARDIAC: S1, S2, 2+ radial pulse. No peripheral edema or dependent edema. LUNGS: Patient is comfortable on room air. There is audible air entry bilaterally. ABDOMEN: Soft, nontender. Positive bowel sounds. MUSCULOSKELETAL: The patient is able to move all four extremities on command. NEUROLOGIC: Appropriately interactive, conversational, follows commands. PSYCHIATRIC: Appropriate mood and affect. LABORATORY: White count 8.7, hemoglobin 12, platelets 305. Sodium 140, potassium 3.7, bicarbonate 27, calcium 9.1. Microbiology: Blood cultures with no growth for 24 hours. Urine culture pending. IMAGING: CT head: Small vessel ischemic disease with moderate volume loss. No hemorrhage or acute infarct. Chest x-ray, 04/09/2017: Chronic stable changes. No acute cardiopulmonary process. INPATIENT MEDICATIONS: - albuterol as needed - calcium carbonate as needed - Senokot one tablet by mouth twice a day - ferrous 324 mg by mouth twice a day - Bacid one by mouth twice a day - prednisone 40 mg by mouth daily - vitamin D 2000 units by mouth daily PROBLEMS: 1. End-stage renal disease, on hemodialysis. The patient received treatment off cycle today. We will get him back on his maintenance schedule. Next hemodialysis will be on 04/12/2017, on . He is well dialyzed and euvolemic 2. Recurrent falls. The patient ambulates with a rolling walker at home. His last admission in December was also prompted by a fall per primary team. 3. Leukocytosis. White count has improved. Antibiotics were discontinued. Blood cultures were negative for 24 hours. Urine culture is pending. 4. Anemia of CKD - hemoglobin is mildly above goal. Hold GINO. 5. Chronic obstructive pulmonary disease with single lung, status post right pneumonectomy. The patient does not seem to be in COPD exacerbation, and I am not sure why he is on prednisone. I suggest to discontinue prednisone. MTDD
[2017-04-10 19:30] VITALS: BP 140/62
[2017-04-10 22:00] VITALS: BP 155/73
[2017-04-11] MEDS ORDERED: ONDANSETRON 4MG/2ML VIAL (J2405) IM PRN (00:45)
[2017-04-11] MEDS: IPRATROPIUM 0.5MG/ALBUTEROL 2.5MG INH SOL UD 3ML (DUONEB)(J7620) NEB SCH ×4 (02:00→19:51)
[2017-04-11 05:56] LABS: MEAN CORPUSCULAR HEMOGLOBIN 32.2 pg (27.0-33.0); MEAN CORPUSCULAR HGB CONC 32.4 g/dl (32.0-36.5); MEAN CORPUSCULAR VOLUME 99.5 fl (80.0-96.0); PLATELET COUNT, AUTOMATED 350 10^3/uL (150-450); RED CELL DISTRIBUTION WIDTH 13.9 % (11.5-14.5); WHITE BLOOD COUNT 12.4 10^3/uL (4.0-10.0)
[2017-04-11 06:00] VITALS: BP 157/73
[2017-04-11 06:19] LABS: CALCIUM LEVEL 9.3 MG/DL (8.8-10.2); CREATININE FOR GFR 2.78 MG/DL (0.70-1.30); POTASSIUM SERUM 4.3 MEQ/L (3.5-5.1)
--- NOTE | 2017-04-11 08:35 | REP ---
MRI BRAIN WITHOUT CONTRAST: HISTORY: Infarction. COMPARISON: CT 04/09/2017. Areas of increased signal intensity on T2-weighted images are present in the periventricular and subcortical white matter and sarah. This represents small vessel ischemic disease. There is no intraparenchymal hemorrhage, infarct, mass or midline shift. The ventricular system and cortical sulci are dilated consistent with moderate volume loss. There is no extracerebral collection. The sinuses are clear. IMPRESSION: 1. Small vessel ischemic disease. 2. Moderate volume loss. Signed by Marek Chino MD 04/11/2017 08:37 A
[2017-04-11] MEDS ORDERED: NITROFURANTOIN (MACROBID) 100 MG CAP PO SCH (09:00)
[2017-04-11] MEDS: LACTOBACILLUS ACIDOPHILUS CAP (BACID) PO SCH ×2 (09:02→20:19)
[2017-04-11] MEDS: VITAMIN B COMPLEX/VIT C CAP PO SCH (09:02)
[2017-04-11] MEDS: SENOKOT S TAB PO SCH ×2 (09:02→20:19)
[2017-04-11] MEDS: HEPARIN SOD (PORCINE) 5000 UNITS/ML VIAL SQ SCH ×2 (09:02→20:19)
[2017-04-11] MEDS: VITAMIN D 1,000 INTERNATIONAL UNITS TABLET PO SCH (09:02)
[2017-04-11] MEDS: KETOCONAZOLE 2% CREAM TOP SCH ×2 (09:03→20:24)
[2017-04-11] MEDS ORDERED: PIPERACILLIN/TAZOBACTAM SOD 4.5 GM in APPROPRIATE DILUENT 1 EA IV SCH (09:15)
--- NOTE | 2017-04-11 09:27 | IPNPDOC ---
Subjective Date Seen The patient was seen on 04/11/17. Subjective Chief Complaint/HPI The patient is a 87-year-old male admitted with a reason for visit of Fall Uti. Pt examined at bedside. No acute complaints. Was hemodialyzed yesterday. Participating in physical therapy. Was nauseous and had 1 episode of vomit overnight. Constitutional: Denies: Chills, Fever Eyes: Denies: Vision change ENT: Denies: Head Aches, Dysphagia Pulmonary: Denies: Dyspnea, Cough Cardiovascular: Denies: Chest Pain, Palpitations, Edema, Lt Headedness Gastrointestinal: Denies: Nausea, Vomiting, Abdominal Pain Genitourinary: Denies: Dysuria, Hematuria Neurological: Reports: Weakness (weakness in legs since fall, feels it is improving), Denies: Numbness Objective Physical Examination General Exam: Positive: Alert, Cooperative, No Acute Distress Eye Exam: Positive: PERRLA, Conjunctiva & lids normal, EOMI, Negative: Ptosis ENT Exam: Positive: Mucous membr. moist/pink, Tongue Midline Neck Exam: Positive: Supple, Negative: JVD, thyromegaly, Lymphadenopathy Chest Exam: Positive: Wheezing, Diminished, Negative: Rales, Rhonchi Heart Exam: Positive: Rate Normal, Normal S1, Normal S2, Murmurs (systolic grade 2) Abdomen Exam: Positive: Normal bowel sounds, Soft, Negative: Tenderness Extremity Exam: Positive: Normal pulses, Negative: Cyanosis, Edema, Tenderness Skin Exam: Positive: Nl turgor and temperature Neuro Exam: Negative: Normal Speech (garbaled speech at baseline), Strength at 5/5 X4 ext (5/5 UE, 2/5 LE b/l due to pt feeling weak) Psych Exam: Positive: Mental status NL, Mood NL, Oriented x 3 Assessment /Plan Assessment Fall 2/2 deconditioning PFS consulted for placement as patient is unable to care for self and 94-year- old at home, and hx of multiple falls PT and OT to eval and treat for deconditioning MRI w/o contrast negative for CVA Leukocytosis Elevated white count at 12.4 this am likely reactionary to steroids that were discontinued yesterday afternoon pt is asymptomatic and afebrile. Will monitor for now and hold off abx Sputum and blood cultures negative at 24hrs Abnormal UA/Urine Culture urine cx positive for Pseudomonas pt has hx of recurrent UTIs. This could be colonization from recent ureteral stent exchange Pt asymptomatic and afebrile. Monitor for now hx of frequent UTIs, supposed to be on Macrobid chronically but has not been compliant lately Macrobid on hold per Pharmacy since it is not beneficial in hemodialysis pts ESRD Nephrology consulted hemodialysis on M,W,F. Was dialyzed yesterday. Next scheduled for tomorrow, then Sunday. Resume MWF next week Creatinine has improved to 2.7, which is his baseline of ~2.5-3.0. Nephro diet COPD hx no current exacerbation. Duoneb prn Hx lung cancer s/p right pneumonectomy Hx colon cancer s/p hemicolectomy DVT ppx heparin sq, HARSHA/SCD Plan/VTE VTE Prophylaxis Ordered?: Yes (heparin, HARSHA/SCD) VS, I&O, 24H, Fishbone Vital Signs/I&O Vital Signs Date Time Temp Pulse Resp B/P (MAP) Pulse Ox O2 Delivery O2 Flow Rate FiO2 04/11/17 06:00 97.5 61 20 157/73 (101) 99 04/10/17 20:45 Room Air Laboratory Data 24H LABS Laboratory Tests 2 04/11/17 05:37: Nucleated Red Blood Cells % (auto) 0.0, Anion Gap 4L, Glomerular Filtration Rate 23.0L, Blood Urea Nitrogen 35H, Creatinine 2.78H, Sodium Level 142, Potassium Level 4.3, Chloride Level 104, Carbon Dioxide Level 34H, Calcium Level 9.3 CBC/BMP Laboratory Tests 04/11/17 05:37 Red Blood Count 3.91 L, Mean Corpuscular Volume 99.5 H, Mean Corpuscular Hemoglobin 32.2, Mean Corpuscular Hemoglobin Concent 32.4, Red Cell Distribution Width 13.9, Calcium Level 9.3 Microbiology Microbiology 04/09/17 Blood Culture - Preliminary, Resulted No growth after 24 hours . All specim... 04/09/17 Blood Culture - Preliminary, Resulted No growth after 24 hours . All specim... 04/10/17 Gram Stain - Final, Complete 04/10/17 Sputum Culture - Final, Complete 04/09/17 Urine Culture - Final, Complete Pseudomonas Aeruginosa GME ATTESTATION GME ATTESTATION My faculty preceptor for this patient encounter was physically present during the encounter and was fully available. All aspects of the patient interview, examination, medical decision making process, and medical care plan development were reviewed and approved by the faculty preceptor. The faculty preceptor is aware and concurs with the plan as stated in the body of this note and will attest to such by his/her cosignature. RON GRULLON DO Apr 11, 2017 09:27 ZAN GARRIDO MD Apr 11, 2017 12:32
[2017-04-11] MEDS ORDERED: PIPERACILLIN/TAZOBACTAM SOD 2.25 GM in APPROPRIATE DILUENT 1 EA IV SCH (11:00)
[2017-04-11 14:00] VITALS: BP 129/63
--- NOTE | 2017-04-11 15:52 | IPN ---
DATE: 04/11/2017 SUBJECTIVE: The patient is seen this morning at the bedside. He reports he feels well. Denies any acute complaints. No significant overnight events. Has been afebrile. Tolerated dialysis yesterday without episode and has been receiving physical therapy. VITAL SIGNS: Temperature 97.5, pulse 61, respiratory rate 20, blood pressure 157/73, saturating 99% on room air. Intake and output: Dialysis yesterday removed 2000 mL ultrafiltration. There is no weight recorded in the bed scale today. PHYSICAL EXAMINATION: Patient is seen sitting out of bed to the chair, comfortable, in no acute distress. HEAD and NECK: Extraocular muscles are intact. The oral mucosa is moist. The neck is supple, there is no significant jugular venous distention. CARDIAC: S1, S2. 2+ radial pulses. There is no edema in the extremities or in the dependent area. LUNGS: Left hemithorax with clear air entry. ABDOMEN: Soft, nontender. Positive bowel sounds. EXTREMITIES: No edema. SKIN: No rashes. NEUROLOGIC: Patient answers questions appropriately and follows commands. PSYCHIATRIC: Normal mood and affect. LABORATORY DATA: White count 12.4, hemoglobin 12.6, platelets 350. Sodium 142, potassium 4.3, bicarbonate 34, calcium 9.3. Microbiology: Urine culture with Pseudomonas aeruginosa 04/09/2017. IMAGING: Brain MRI 04/10/2017, small vessel ischemic disease, moderate volume loss. INPATIENT MEDICATIONS: The patient is discontinued off of IV antibiotics per the primary team. Remainder of medications are unchanged from prior. PROBLEMS: 1. End-stage renal disease on hemodialysis. The patient is currently off of his maintenance schedule. Next hemodialysis will be tomorrow, , 04/12/2017. His volume status is well compensated on hemodialysis. He is well dialyzed with fairly stable electrolytes. 2. Recurrent falls. The patient has had a head CT and a brain MRI without acute findings. He continues on physical therapy and occupational therapy. There is a patient and family services (PFS) consult for placement for the patient as per the primary team. 3. Pseudomonas urinary tract infection (UTI). Patient denies any symptoms except for weakness. Possibly colonization, per the primary team, off of antibiotics at the present. He does have a history of recurrent urinary tract infections (UTIs) with a risk factor of chronic ureteral stents. 4. History of chronic obstructive pulmonary disease (COPD) and history of lung cancer status post right pneumonectomy. Respiring comfortably. Continues with inhalers. No need of steroids at this time. Plan of care discussed with Dr. Graves.
[2017-04-11 20:00] VITALS: BP 141/71
[2017-04-11] MEDS: ONDANSETRON 4MG/2ML VIAL (J2405) IV PRN (21:38)
[2017-04-12] MEDS ORDERED: ONDANSETRON 4 MG TAB (S0181) PO ONE
[2017-04-12] MEDS ORDERED: BENZONATATE 100 MG CAP PO ONE
[2017-04-12] MEDS: IPRATROPIUM 0.5MG/ALBUTEROL 2.5MG INH SOL UD 3ML (DUONEB)(J7620) NEB SCH ×4 (01:03→19:35)
[2017-04-12] MEDS ORDERED: guaiFENesin ER 600 MG TAB PO ONE (02:45)
[2017-04-12 06:00] VITALS: BP 150/76
[2017-04-12 06:10] LABS: MEAN CORPUSCULAR HEMOGLOBIN 32.3 pg (27.0-33.0); MEAN CORPUSCULAR HGB CONC 32.1 g/dl (32.0-36.5); MEAN CORPUSCULAR VOLUME 100.8 fl (80.0-96.0); PLATELET COUNT, AUTOMATED 374 10^3/uL (150-450); WHITE BLOOD COUNT 12.4 10^3/uL (4.0-10.0)
[2017-04-12 06:31] LABS: CALCIUM LEVEL 9.2 MG/DL (8.8-10.2); CREATININE FOR GFR 3.39 MG/DL (0.70-1.30); GLOMERULAR FILTRATION RATE 18.3 (>35); POTASSIUM SERUM 4.1 MEQ/L (3.5-5.1)
[2017-04-12] MEDS: VITAMIN B COMPLEX/VIT C CAP PO SCH ×2 (06:42→08:28)
[2017-04-12] MEDS: VITAMIN D 1,000 INTERNATIONAL UNITS TABLET PO SCH ×3 (06:42→08:29)
[2017-04-12] MEDS: LACTOBACILLUS ACIDOPHILUS CAP (BACID) PO SCH ×3 (06:43→20:08)
[2017-04-12] MEDS: SENOKOT S TAB PO SCH ×2 (06:43→20:08)
[2017-04-12] MEDS: HEPARIN SOD (PORCINE) 5000 UNITS/ML VIAL SQ SCH ×2 (06:43→20:08)
[2017-04-12] MEDS: KETOCONAZOLE 2% CREAM TOP SCH ×2 (06:44→20:08)
[2017-04-12 08:25] VITALS: BP 137/78
[2017-04-12] MEDS ORDERED: LIDOCAINE 1% SDV 5 ML VIAL SC ONE (12:00)
[2017-04-12] MEDS ORDERED: HEPARIN 1,000 UNITS/ML 10ML VIAL (FOR RADIOLOGY& DIALYSIS ONLY) IV ONE (12:00)
[2017-04-12 15:37] VITALS: BP 147/72
--- NOTE | 2017-04-12 16:54 | REP ---
Clinical: Cough. Technique: AP and lateral. Comparison: Multiple examinations dating through 09/06/2015. Findings: Chronic opacification and pleuroparenchymal changes involving the right hemithorax remain relatively stable. Associated volume loss and ipsilateral mediastinal shift is again noted. The left hemithorax demonstrates diffuse chronic interstitial changes. Small stable 7 mm nodule in the periphery of the left lower lung zone is unchanged. No obvious acute consolidation, effusion, or pneumothorax. Skeletal structures demonstrate degenerative changes. Impression: Chronic stable changes similar to 2016. If the patient remains symptomatic consider chest CT for further investigation. Signed by Nitin Alston MD 04/12/2017 04:44 P
--- NOTE | 2017-04-12 23:59 | IPN ---
DATE: 04/12/2017 SUBJECTIVE: The patient is seen this morning at the bedside. He feels well. He denies any complaints except for nausea with small emesis overnight. He states he did not feel like having much breakfast after that episode. He otherwise denies any diarrhea, fevers, chills, abdominal cramping or new onset weakness. VITAL SIGNS: Temperature 98.5, pulse 78, respiratory rate 18, blood pressure 160/76, saturating 96% on room a ir. INTAKE AND OUTPUT: Hemodialysis today removed 2000 mL ultrafiltration. PHYSICAL EXAMINATION: The patient is seen sitting out of bed to the chair, upright, in no acute distress. Extraocular muscles are intact. The oral mucosa is moist, and the neck is supple. The sclerae are anicteric. There is no jugular venous distention (JVD) or thyromegaly. Chest: S1, S2, systolic murmur, 2+ radial pulse. Lungs: Clear air entry on the left. The patient is comfortable on room air. No accessory muscle use. Abdomen is soft, nontender, positive bowel sounds. Extremities: The lower extremities are without edema. The left upper extremity has a fistula with thrill and bruit. Skin: Normal turgor and temperature. No rash. Neurologic: Appropriately interactive and conversational. Psychiatric: Appropriate mood and affect. LABORATORY: White count 12.4, hemoglobin 12.9, platelets 374. Sodium 141, potassium 4.1, bicarbonate 32, calcium 9.2. IMAGING: Chest x-ray, 04/12/2017: No obvious acute consolidation or effusion. There are chronic interstitial changes on the left. There is ipsilateral mediastinal shift. INPATIENT MEDICATIONS: Reviewed and new meds include Mucinex and Tessalon Perles. Remainder of medications are unchanged from prior. PROBLEMS: 1. End-stage renal disease, on hemodialysis. The patient is currently off his maintenance schedule. He was dialyzed today with 2000 mL ultrafiltration. Next hemodialysis will be on 04/14/2017, and then we will work on getting him back on his regular maintenance schedule. Decrease UF on next treatment given signs of intravascular contraction including rising Hgb, metabolic alkalosis. 2. Recurrent falls, deconditioning. Patient and family services consult is placed for placement for the patient, and he is receiving physical therapy (PT) and occupational therapy (OT). 3. History of chronic obstructive pulmonary disease (COPD) and history of lung cancer, status post pneumonectomy. No acute respiratory issues at this time. The patient is comfortable on room air. Plan of care is discussed with Dr. Roddy Graves. [facility] HOSPITALGrupo
[2017-04-13] MEDS: ONDANSETRON 4MG/2ML VIAL (J2405) IV PRN (00:43)
[2017-04-13] MEDS: IPRATROPIUM 0.5MG/ALBUTEROL 2.5MG INH SOL UD 3ML (DUONEB)(J7620) NEB SCH ×4 (01:07→20:00)
--- NOTE | 2017-04-13 03:45 | IPNPDOC ---
Subjective Date Seen The patient was seen on 04/12/17. Subjective Chief Complaint/HPI The patient is a 87-year-old male admitted with a reason for visit of Fall Uti. Pt states he was nauseous overnight. Per night team, he vomited up sputum. No n/ v this am. Pt has elevated wbc, but asymptomatic and vitals WNL. Pt denies cp, sob, dysuria. Has mild cough. Legs feel better since he fell and he feels less weak. Constitutional: Denies: Chills, Fever ENT: Denies: Dysphagia Pulmonary: Reports: Cough, Denies: Dyspnea Cardiovascular: Denies: Chest Pain, Palpitations, Edema, Lt Headedness Gastrointestinal: Reports: Nausea, Vomiting (1 sputum vomit overnight), Denies: Abdominal Pain Genitourinary: Denies: Dysuria, Hematuria Neurological: Denies: Weakness, Numbness Objective Physical Examination General Exam: Positive: Alert, Cooperative, No Acute Distress Eye Exam: Positive: PERRLA, Conjunctiva & lids normal, EOMI, Negative: Ptosis ENT Exam: Positive: Mucous membr. moist/pink Neck Exam: Positive: Supple, Negative: JVD, thyromegaly, Lymphadenopathy Chest Exam: Positive: Clear to auscultation (wheezing from yesterday cleared), Normal air movement, Negative: Rales, Rhonchi, Wheezing Heart Exam: Positive: Rate Normal, Normal S1, Normal S2, Murmurs (systolic grade 2) Abdomen Exam: Positive: Normal bowel sounds, Soft, Negative: Tenderness Extremity Exam: Positive: Normal pulses, Negative: Cyanosis, Edema, Tenderness Skin Exam: Positive: Nl turgor and temperature Neuro Exam: Negative: Normal Speech (garbaled speech at baseline) Psych Exam: Positive: Mental status NL, Mood NL, Oriented x 3 Assessment /Plan Assessment Fall 2/2 deconditioning Patient is unable to care for self and 89-year-old at home, and hx of multiple falls PFS consulted for placement. Placement pending PT and OT to eval and treat for deconditioning Cough CXR negative for acute process. Monitor Has hx COPD. Controlled. Continue Duonebs for cough/assist breathing Leukocytosis Elevated white count at 12.4 today, same as yesterday possibly reactionary to steroids discontinued 04/10/17 pt is asymptomatic and afebrile. Will monitor for now and hold off abx Sputum and blood cultures negative at 72hrs Abnormal UA/Urine Culture urine cx positive for Pseudomonas pt has hx of recurrent UTIs. This could be colonization from recent ureteral stent exchange Pt asymptomatic and afebrile. Continue monitoring hx of frequent UTIs, supposed to be on Macrobid chronically but has not been compliant lately Macrobid on hold per Pharmacy since it is not beneficial in hemodialysis pts ESRD Nephrology consulted hemodialysis on ,,. Was dialyzed Sunday. Again scheduled for today, . Next scheduled for Sunday. Resume MWF next week per nephro Creatinine is elevated again today. Baseline ~2.5-3.0. Nephro diet COPD hx no current exacerbation. Duoneb prn Hx lung cancer s/p right pneumonectomy Hx colon cancer s/p hemicolectomy DVT ppx heparin sq, HARSHA/SCD Plan/VTE VTE Prophylaxis Ordered?: Yes (heparin, HARSHA/SCD) VS, I&O, 24H, Fishbone Vital Signs/I&O Vital Signs Date Time Temp Pulse Resp B/P (MAP) Pulse Ox O2 Delivery O2 Flow Rate FiO2 04/12/17 06:00 98.5 78 18 150/76 (100) 96 Room Air Laboratory Data 24H LABS Laboratory Tests 2 04/12/17 05:45: Nucleated Red Blood Cells % (auto) 0.0, Anion Gap 4L, Glomerular Filtration Rate 18.3L, Blood Urea Nitrogen 47H, Creatinine 3.39H, Sodium Level 141, Potassium Level 4.1, Chloride Level 105, Carbon Dioxide Level 32, Calcium Level 9.2 CBC/BMP Laboratory Tests 04/12/17 05:45 Red Blood Count 3.99 L, Mean Corpuscular Volume 100.8 H, Mean Corpuscular Hemoglobin 32.3, Mean Corpuscular Hemoglobin Concent 32.1, Red Cell Distribution Width 14.0, Calcium Level 9.2 Microbiology Microbiology 04/09/17 Blood Culture - Preliminary, Resulted No Growth after 48 hours. All Specime... 04/09/17 Blood Culture - Preliminary, Resulted No Growth after 48 hours. All Specime... 04/12/17 Gram Stain, Received Pending 04/12/17 Sputum Culture, Received Pending 04/10/17 Gram Stain - Final, Complete 04/10/17 Sputum Culture - Final, Complete 04/09/17 Urine Culture - Final, Complete Pseudomonas Aeruginosa GME ATTESTATION GME ATTESTATION My faculty preceptor for this patient encounter was physically present during the encounter and was fully available. All aspects of the patient interview, examination, medical decision making process, and medical care plan development were reviewed and approved by the faculty preceptor. The faculty preceptor is aware and concurs with the plan as stated in the body of this note and will attest to such by his/her cosignature. RON GRULLON DO Apr 12, 2017 09:18
[2017-04-13 05:25] VITALS: BP 146/86
[2017-04-13 07:40] LABS: CALCIUM LEVEL 9.9 MG/DL (8.8-10.2); CREATININE FOR GFR 3.23 MG/DL (0.70-1.30); GLOMERULAR FILTRATION RATE 19.4 (>35); POTASSIUM SERUM 4.8 MEQ/L (3.5-5.1)
[2017-04-13 07:47] LABS: MEAN CORPUSCULAR HEMOGLOBIN 31.7 pg (27.0-33.0); MEAN CORPUSCULAR HGB CONC 31.7 g/dl (32.0-36.5); PLATELET COUNT, AUTOMATED 417 10^3/uL (150-450); RED CELL DISTRIBUTION WIDTH 13.9 % (11.5-14.5); WHITE BLOOD COUNT 16.6 10^3/uL (4.0-10.0)
[2017-04-13] MEDS: SENOKOT S TAB PO SCH ×2 (10:29→21:58)
[2017-04-13] MEDS: LACTOBACILLUS ACIDOPHILUS CAP (BACID) PO SCH ×2 (10:30→21:58)
[2017-04-13] MEDS: VITAMIN D 1,000 INTERNATIONAL UNITS TABLET PO SCH (10:30)
[2017-04-13] MEDS: FERROUS GLUCONATE 324 MG TAB PO SCH ×2 (10:30→21:58)
[2017-04-13] MEDS: VITAMIN B COMPLEX/VIT C CAP PO SCH (10:30)
[2017-04-13] MEDS: HEPARIN SOD (PORCINE) 5000 UNITS/ML VIAL SQ SCH ×2 (10:31→21:59)
[2017-04-13] MEDS: KETOCONAZOLE 2% CREAM TOP SCH ×2 (10:32→21:00)
[2017-04-13] MEDS: PIPERACILLIN/TAZOBACTAM SOD 2.25 GM in APPROPRIATE DILUENT 1 EA IV SCH ×2 (11:56→23:08)
--- NOTE | 2017-04-13 12:37 | IPNPDOC ---
Date Seen The patient was seen on 04/13/17. Progress Note SUBJECTIVE: Patient is an 87-year-old male with past medical history of: ESRD; COPD; lung cancer s/p right pneumonectomy; frequent UTIs; history of colon cancer s/p hemicolectomy; presenting on 04/09/2017 with weakness following a fall at home. Today, he was seen bedside. He had several episodes of tachycardia up to 150 bpm when working with PT and OT. Presently, his only complaint is of being tired. He denies lightheadedness, dizziness, headache, chest pain, shortness of breath, nausea, vomiting. OBJECTIVE PHYSICAL EXAMINATION: VITAL SIGNS: Please see below. GENERAL: Elderly male seated in bed. HEENT: Atraumatic, normocephalic; neck supple. CARDIOVASCULAR: S1/S2 with prominent 2/6 holosystolic murmur best heard over the right parasternal area, 2nd intercostal space. Irregular irregular pulses noted at the beginning of the exam; several minutes later his pulse was noted to be regular. RESPIRATORY: Clear to auscultation all arroyo bilaterally. ABDOMINAL: Soft, non-tender, no peritoneal signs; normoactive bowel sounds. EXTREMITIES: Moves all extremities; no noted peripheral edema. He has one 1cm diameter scab each on the right and left lower legs NEUROLOGICAL: CN II-XII grossly intact. PSYCHOLOGICAL: Pleasant mood and normal affect LABORATORY DATA: Please see below. MICROBIOLOGY: Please see below. IMAGING: Thoracic Spine X-Ray Impression: Osteopenia and degenerative changes as noted above. No obvious acute fracture / compression injury or subluxation. Head CT Impression: 1. Small vessel ischemic disease per 2. Moderate volume loss. Chest X-Ray (04/09/17) Impression: Chronic stable changes. No obvious acute cardiopulmonary process. Brain MRI Impression: 1. Small vessel ischemic disease. 2. Moderate volume loss. Chest X-Ray (04/12/17) Impression: Chronic stable changes similar to 2016. If the patient remains symptomatic consider chest CT for further investigation. DVT prophylaxis ordered?: Yes, Heparin & SCD/HARSHA. ASSESSMENT AND PLAN: This is an 87-year-old male with weakness. PROBLEMS: 1. Recurrent falls, deconditioning - Patient is unable to care for self and 89-year-old at home, and history of multiple falls - PFS consulted for placement. Placement pending - PT and OT to evaluation and treat for deconditioning, is working well with PT -No focal neurological signs, this is likely secondary to deconditioning 2. Leukocytosis with Abnormal UA/Urine Culture, positive for Pseudomonas aeruginosa - History of recurrent UTIs. This could be colonization from recent ureteral stent exchange; on Macrobid chronically but currently held due to patient noncompliance and recommendation from pharmacy due to ineffectiveness in hemodialysis patients - Pt asymptomatic and afebrile, but increasing white count to 16.6 from 12.4 yesterday - Start Zosyn 2.25g IV at 20mLs/hr every 12 hours for 7 days, no focal source for infection at this time 3. Chronic Obstructive Pulmonary Disease - CXR negative for acute process. Monitor - Has hx COPD. Controlled. Continue Duonebs for cough/assist breathing 5. ESRD - Nephrology consulted - hemodialysis on ,,. Was dialyzed Sunday. Again scheduled for today, . Next scheduled for Sunday. Resume MWF next week per nephro - Creatinine is elevated again today. Baseline ~2.5-3.0. - Nephro diet 7. History of lung cancer - s/p right pneumonectomy 8. History of colon cancer - s/p hemicolectomy DISPOSITION: Likely placement for continued rehab. VS, I&O, 24H, Fishbone Vital Signs/I&O Vital Signs Date Time Temp Pulse Resp B/P (MAP) Pulse Ox O2 Delivery O2 Flow Rate FiO2 04/13/17 05:25 98.8 87 18 146/86 (106) 96 Room Air I&O- Last 24 Hours up to 6 AM 04/14/17 06:00 Intake Total 240 ml Balance 240 ml Laboratory Data 24H LABS Laboratory Tests 2 04/13/17 06:59: Nucleated Red Blood Cells % (auto) 0.0, Anion Gap 6L, Glomerular Filtration Rate 19.4L, Blood Urea Nitrogen 36H, Creatinine 3.23H, Sodium Level 138, Potassium Level 4.8, Chloride Level 100, Carbon Dioxide Level 32, Calcium Level 9.9 CBC/BMP Laboratory Tests 04/13/17 06:59 Red Blood Count 4.61, Mean Corpuscular Volume 100.0 H, Mean Corpuscular Hemoglobin 31.7, Mean Corpuscular Hemoglobin Concent 31.7 L, Red Cell Distribution Width 13.9, Calcium Level 9.9 Microbiology Microbiology 04/09/17 Blood Culture - Preliminary, Resulted No Growth after 72 hours. All specime... 04/09/17 Blood Culture - Preliminary, Resulted No Growth after 72 hours. All specime... 04/12/17 Gram Stain - Final, Complete 04/12/17 Sputum Culture - Final, Complete 04/10/17 Gram Stain - Final, Complete 04/10/17 Sputum Culture - Final, Complete 04/09/17 Urine Culture - Final, Complete Pseudomonas Aeruginosa STEVEN CARSON DO Apr 13, 2017 10:41
[2017-04-13 14:00] VITALS: BP 147/72
--- NOTE | 2017-04-13 14:05 | IPN ---
DATE: 04/13/2017 SUBJECTIVE: The patient is seen this morning at the bedside out of bed to the chair reading the newspaper comfortable in no acute distress. Denies any complaints. He had hemodialysis yesterday with 2000 mL ultra filtration removed without issue. White count noted to have risen and patient also had some episode of tachycardia this morning. He denied any symptoms with the same. VITAL SIGNS: Temperature 98.8, pulse 87, respiratory rate 18, blood pressure 146/86, saturating 96% on room a ir. INTAKE AND OUTPUT: Hemodialysis yesterday removed 2000 mL ultrafiltration. There were 6 incontinent voids recorded as well. PHYSICAL EXAMINATION: The patient is seen out of bed to the chair, comfortable, in no acute distress, reading a newspaper. He is frail appearing. Head and Neck: Extraocular muscles are intact. The oral mucosa is moist. The neck is supple. There is no jugular venous distention (JVD) while sitting upright. Cardiovasular: S1, S2, regular rate and rhythm. 2+ radial pulse. No edema in the dependent areas or in the peripheries. Respiratory: The patient is comfortable on room air. There is no accessory muscle use. Left hemithorax with clear lung sounds. Abdomen is soft, nontender, positive bowel sounds. Extremities: Left upper extremity has a fistula with thrill and bruit. Lower extremities are without edema. Skin: Normal turgor and temperature. Neurologic: Appropriately interactive and conversational. Psychiatric: Appropriate mood and affect. LABORATORY: White count 16.6, hemoglobin 14.6, platelets 417. Sodium 138, potassium 4.8, bicarbonate 32, calcium 9.9, glucose 156. MICROBIOLOGY: Blood culture 04/09/2017 with no growth to date. Urine culture 04/09/2017 with Pseudomonas more than 100,000 colonies sensitive to Zosyn. IMAGING: Chest x-ray on 04/12/2017: Chronic opacification of the right hemithorax with associated volume loss and ipsilateral mediastinal shift. Left hemithorax with diffuse chronic interstitial changes. INPATIENT MEDICATIONS: Reviewed by myself and noted the patient is resumed on IV Zosyn. Remainder of medications are unchanged from prior. PROBLEMS: 1. End-stage renal disease, on hemodialysis. The patient is currently off his maintenance hemodialysis schedule. Next treatment will be tomorrow, 04/14/2017, and we will give minimal ultrafiltration of 1 kg or less given that the patient's hemoglobin is 14 and his corrected calcium is probably greater than 10. I am concerned that he might be a little dry. 2. Recurrent falls and deconditioning. The patient is receiving therapy and he is most likely pending placement as per the primary team for continued rehabilitation. 3. Increase in leukocytosis with urine culture positive for 100,000 colonies of Pseudomonas in a patient with history of recurrent UTIs and chronic ureteral stent. I agree with treating him with IV Zosyn at this time. I reviewed his 9 urine cultures that are available from April 2016 to present and almost all of them were growing E. Coli. I do not see that he has ever had a Pseudomonal UTI within the past year and so this may not be colonization. Would continue with IV Zosyn to complete a course of treatment. 4. Chronic obstructive pulmonary disease (COPD) without exacerbation at this time. Continues on room air with inhaler treatments as needed.
--- NOTE | 2017-04-13 14:53 | ECGEPIP ---
Stationary ECG Study [facility] Test Date: 2017-04-13 Pat Name: TARUN OSORIO Department: Room: [place] [address] Gender: M [employer]: HAILEY : 1930 Requested By: STEVEN CARSON Order Number: [id number] Reading MD: Alen Silva Measurements Intervals [place] Rate: 90 P: AL: 0 QRS: 262 QRSD: 138 T: 27 QT: 358 QTc: 440 Interpretive Statements NORMAL SINUS RHYTH. FIRST DEGREE AV BLOCK MARKED RIGHT AXIS DEVIATION RIGHT BUNDLE BRANCH BLOCK Possible prior inferior wall infarct but finding may be secondary to the right bundle branch block Electronically Signed On 04-13-2017 14:52:47 EST by Alen Silva
[2017-04-13 21:20] VITALS: BP 146/74
[2017-04-14] MEDS: IPRATROPIUM 0.5MG/ALBUTEROL 2.5MG INH SOL UD 3ML (DUONEB)(J7620) NEB SCH ×4 (01:27→19:17)
[2017-04-14 05:00] VITALS: BP 139/69
[2017-04-14 05:51] LABS: MEAN CORPUSCULAR HEMOGLOBIN 32.6 pg (27.0-33.0); MEAN CORPUSCULAR HGB CONC 33.6 g/dl (32.0-36.5); MEAN CORPUSCULAR VOLUME 97.2 fl (80.0-96.0); PLATELET COUNT, AUTOMATED 403 10^3/uL (150-450); RED CELL DISTRIBUTION WIDTH 13.7 % (11.5-14.5); WHITE BLOOD COUNT 22.2 10^3/uL (4.0-10.0)
[2017-04-14 06:09] LABS: CALCIUM LEVEL 9.6 MG/DL (8.8-10.2); CREATININE FOR GFR 4.06 MG/DL (0.70-1.30); GLOMERULAR FILTRATION RATE 14.9 (>35); POTASSIUM SERUM 4.3 MEQ/L (3.5-5.1)
[2017-04-14] MEDS: SENOKOT S TAB PO SCH ×2 (06:49→20:33)
[2017-04-14] MEDS: LACTOBACILLUS ACIDOPHILUS CAP (BACID) PO SCH ×2 (06:49→20:33)
[2017-04-14] MEDS: FERROUS GLUCONATE 324 MG TAB PO SCH ×2 (06:49→20:33)
[2017-04-14] MEDS: VITAMIN D 1,000 INTERNATIONAL UNITS TABLET PO SCH (06:49)
[2017-04-14] MEDS: HEPARIN SOD (PORCINE) 5000 UNITS/ML VIAL SQ SCH ×2 (06:49→20:33)
[2017-04-14] MEDS: VITAMIN B COMPLEX/VIT C CAP PO SCH (06:49)
[2017-04-14] MEDS: KETOCONAZOLE 2% CREAM TOP SCH ×2 (06:50→20:35)
[2017-04-14 07:30] LABS: ERYTHROCYTE SEDIMENTATION RATE 35 mm/hr (0-30)
[2017-04-14] MEDS ORDERED: VANCOMYCIN HCL 1,000 MG, VIAL MATE ADAPTER 1 EACH in D5W 250 ML IV SCH (09:00)
[2017-04-14] MEDS ORDERED: HEPARIN 1,000 UNITS/ML 10ML VIAL (FOR RADIOLOGY& DIALYSIS ONLY) IV ONE (10:30)
[2017-04-14] MEDS ORDERED: LIDOCAINE 1% SDV 5 ML VIAL SQ ONE (10:30)
--- NOTE | 2017-04-14 11:09 | IPNPDOC ---
Subjective Date Seen The patient was seen on 04/14/17. Subjective Chief Complaint/HPI The patient is a 87-year-old male admitted with a reason for visit of Fall Uti. General: Denies: Chills, Night Sweats Constitutional: Denies: Chills ENT: Denies: Head Aches Skin: Denies: Rash, Lesions Pulmonary: Denies: Dyspnea, Cough Cardiovascular: Denies: Chest Pain, Palpitations, Orthopnea, Edema, Lt Headedness Gastrointestinal: Denies: Nausea, Vomiting, Abdominal Pain, Diarrhea, Constipation Neurological: Reports: Weakness, Denies: Numbness Objective Physical Examination General Exam: Positive: Alert, Cooperative, No Acute Distress Eye Exam: Positive: PERRLA, Conjunctiva & lids normal, EOMI, Negative: Ptosis ENT Exam: Positive: Mucous membr. moist/pink Neck Exam: Positive: Supple, Negative: JVD, thyromegaly, Lymphadenopathy Chest Exam: Positive: Clear to auscultation (wheezing from yesterday cleared), Normal air movement, Negative: Rales, Rhonchi, Wheezing Heart Exam: Positive: Rate Normal, Normal S1, Normal S2, Murmurs (systolic grade 2) Abdomen Exam: Positive: Normal bowel sounds, Soft, Negative: Tenderness Extremity Exam: Positive: Normal pulses, Negative: Cyanosis, Edema, Tenderness Skin Exam: Positive: Nl turgor and temperature Neuro Exam: Negative: Normal Speech (garbaled speech at baseline) Psych Exam: Positive: Mental status NL, Mood NL, Oriented x 3 Assessment /Plan Assessment SUBJECTIVE: Patient is an 87-year-old male with past medical history of: ESRD; COPD; lung cancer s/p right pneumonectomy; frequent UTIs; history of colon cancer s/p hemicolectomy; presenting on 04/09/2017 with weakness following a fall at home. Today, he was seen during dialysis. He had several episodes of tachycardia up to 150 bpm when working with PT and OT one day ago. Presently, his only complaint is of being fatigued in his b/l legs when walking with PT/OT yesterday. He denies lightheadedness, dizziness, headache, chest pain, shortness of breath, nausea, vomiting. OBJECTIVE PHYSICAL EXAMINATION: VITAL SIGNS: Please see below. GENERAL: Elderly male receiving dialysis HEENT: Atraumatic, normocephalic; neck supple. CARDIOVASCULAR: S1/S2 with prominent 2/6 holosystolic murmur best heard over the right parasternal area, 2nd intercostal space. Irregular irregular pulses noted at the beginning of the exam; several minutes later his pulse was noted to be regular. RESPIRATORY: Clear to auscultation all arroyo bilaterally. ABDOMINAL: Soft, non-tender, no peritoneal signs; normoactive bowel sounds. EXTREMITIES: Moves all extremities; no noted peripheral edema. He has one 1cm diameter scab each on the right and left lower legs NEUROLOGICAL: No focal deficits appreciated PSYCHOLOGICAL: Pleasant mood and normal affect LABORATORY DATA: Please see below. MICROBIOLOGY: Please see below. IMAGING: Thoracic Spine X-Ray Impression: Osteopenia and degenerative changes as noted above. No obvious acute fracture / compression injury or subluxation. Head CT Impression: 1. Small vessel ischemic disease per 2. Moderate volume loss. Chest X-Ray (04/09/17) Impression: Chronic stable changes. No obvious acute cardiopulmonary process. Brain MRI Impression: 1. Small vessel ischemic disease. 2. Moderate volume loss. Chest X-Ray (04/12/17) Impression: Chronic stable changes similar to 2016. If the patient remains symptomatic consider chest CT for further investigation. DVT prophylaxis ordered?: Yes, Heparin & SCD/HARSHA. ASSESSMENT AND PLAN: This is an 87-year-old male with weakness. PROBLEMS: 1. Recurrent falls, deconditioning - Patient is unable to care for self and 89-year-old at home, and history of multiple falls - PFS consulted for placement. Placement pending - PT and OT to evaluation and treat for deconditioning, is working well with PT -No focal neurological signs, this is likely secondary to deconditioning 2. Leukocytosis with Abnormal UA/Urine Culture, positive for Pseudomonas aeruginosa - His white count did bump again today to 22.2 from 16.6, he continues to be asymptomatic and afebrile, will add on Vancomycin 1000 mg q12h, Will obtain CT ab/pelvis and chest to look for source of infection, such as abscess, will repeat blood cultures and trend CRP -Will c/w zosyn 2.25g IV at 20mLs/hr every 12 hours for 7 days and monitor white count, no focal source for infection at this time - History of recurrent UTIs. This could be colonization from recent ureteral stent exchange; on Macrobid chronically but currently held due to patient noncompliance and recommendation from pharmacy due to ineffectiveness in hemodialysis patients 3. Chronic Obstructive Pulmonary Disease - CXR negative for acute process. Monitor - Has hx COPD. Controlled. Continue Duonebs for cough/assist breathing 5. ESRD - Nephrology consulted, appreciate their recommendations, dialysis today - hemodialysis on M,W,. Was dialyzed Sunday. Dialysis today, . Next scheduled for Sunday. Resume MWF next week per nephro - Creatinine is elevated again 4.06 today. Baseline ~2.5-3.0. - Nephro diet 7. History of lung cancer - s/p right pneumonectomy 8. History of colon cancer - s/p hemicolectomy DISPOSITION: Likely placement for continued rehab. Plan/VTE VTE Prophylaxis Ordered?: Yes (heparin, HARSHA/SCD) VS, I&O, 24H, Fishbone Vital Signs/I&O Vital Signs Date Time Temp Pulse Resp B/P (MAP) Pulse Ox O2 Delivery O2 Flow Rate FiO2 04/14/17 05:00 98.3 63 20 139/69 (92) 98 Room Air I&O- Last 24 Hours up to 6 AM 04/15/17 06:00 Intake Total 520 ml Balance 520 ml Laboratory Data 24H LABS Laboratory Tests 2 04/14/17 05:43: Nucleated Red Blood Cells % (auto) 0.0, Erythrocyte Sedimentation Rate 35H, Anion Gap 11, Glomerular Filtration Rate 14.9L, Blood Urea Nitrogen 66#H, Creatinine 4.06H, Sodium Level 136, Potassium Level 4.3, Chloride Level 100, Carbon Dioxide Level 25, Calcium Level 9.6, C-Reactive Protein, Quantitative 5.13H CBC/BMP Laboratory Tests 04/14/17 05:43 Red Blood Count 4.26 L, Mean Corpuscular Volume 97.2 H, Mean Corpuscular Hemoglobin 32.6, Mean Corpuscular Hemoglobin Concent 33.6, Red Cell Distribution Width 13.7, Calcium Level 9.6 Microbiology Microbiology 04/14/17 Blood Culture, Received Pending 04/14/17 Blood Culture, Received Pending 04/09/17 Blood Culture - Preliminary, Resulted No Growth after 72 hours. All specime... 04/09/17 Blood Culture - Preliminary, Resulted No Growth after 72 hours. All specime... 11/16/17 Gram Stain - Final, Complete 04/12/17 Sputum Culture - Final, Complete 04/10/17 Gram Stain - Final, Complete 04/10/17 Sputum Culture - Final, Complete 04/09/17 Urine Culture - Final, Complete Pseudomonas Aeruginosa GME ATTESTATION GME ATTESTATION My faculty preceptor for this patient encounter was physically present during the encounter and was fully available. All aspects of the patient interview, examination, medical decision making process, and medical care plan development were reviewed and approved by the faculty preceptor. The faculty preceptor is aware and concurs with the plan as stated in the body of this note and will attest to such by his/her cosignature. GME ATTESTATION GME ATTESTATION My faculty preceptor for this patient encounter was physically present during the encounter and was fully available. All aspects of the patient interview, examination, medical decision making process, and medical care plan development were reviewed and approved by the faculty preceptor. The faculty preceptor is aware and concurs with the plan as stated in the body of this note and will attest to such by his/her cosignature. STEVEN CARSON DO Apr 14, 2017 11:08
[2017-04-14 14:00] VITALS: BP 132/70
--- NOTE | 2017-04-14 14:56 | REP ---
CT CHEST WITHOUT CONTRAST: CT chest performed without IV contrast and compared to prior study of 11/15/2015. There is again evidence of prior right pneumonectomy with complete opacification of the right hemithorax. Diffuse pleural calcifications are present. There is shift of heart and mediastinal structures to the right. The heart is not enlarged. There is ectasia and tortuosity with moderate calcification of the thoracic aorta. No adenopathy is seen in the chest. There is no left pleural effusion. Scattered interstitial fibrotic changes are seen in the left lung. No consolidating infiltrate is seen. Three subcentimeter nodular opacities measure 3 to 4 mm in diameter and are stable compared to the prior study. There are calcified granulomas more inferiorly. There are degenerative changes of the spine. There is a small hiatal hernia. IMPRESSION: No acute infiltrate left lung with chronic changes as discussed in detail above. Status post right pneumonectomy. No adenopathy seen. Signed by Chele Lock MD 04/14/2017 11:57 A
--- NOTE | 2017-04-14 14:56 | REP ---
CT ABDOMEN AND PELVIS WITHOUT CONTRAST: CT abdomen and pelvis is performed without oral or IV contrast, with sagittal and coronal reconstruction images performed. Comparison made with prior study 11/17/2015. No gross abnormality is seen of the liver. Patient has had a prior cholecystectomy. Calcified granulomas are seen in the spleen. Adrenal glands are mildly thickened and unchanged. Multiple pancreatic calcifications are again noted as seen on prior study. Appearance of the pancreas is unchanged. Kidneys demonstrate mild bilateral hydronephrosis. There are bilateral ureteral stents in place, both ends proximally are coiled in the renal pelvis and distally in the urinary bladder. Moderate atherosclerotic calcifications are seen of the abdominal aorta without aneurysm. There is no adenopathy. There is no free air or free fluid. No bowel wall thickening is seen. No definite pelvic mass is seen. There are bilateral metallic hip prostheses present. There are degenerative changes of the spine. IMPRESSION: Mild bilateral hydronephrosis with bilateral nephrostomy tubes appearing to be in good position. No adenopathy, free air or free fluid. No other evidence of acute finding. Signed by Chele Lock MD 04/14/2017 11:57 A
--- NOTE | 2017-04-14 15:45 | IPN ---
DATE: 04/14/2017 SUBJECTIVE: The patient was seen and examined at the bedside today morning during hemodialysis procedure. The patient was tolerating the hemodialysis procedure well. The patient reports that he is feeling dry and thirsty, so no ultrafiltration is being done with hemodialysis. REVIEW OF SYSTEMS: The patient denies any fevers, chills, rigors, headaches, nausea, vomiting, chest pain, shortness of breath, pain abdomen, constipation, or diarrhea. He does report dry mouth. Rest of review of systems is negative. OBJECTIVE: VITAL SIGNS: Temperature is 98.3 degrees Fahrenheit, blood pressure is 139/69, pulse is 63, respiratory rate of 18, saturating 98% on room air. INTAKE AND OUTPUT: Urine output recorded as only 100 mL. Weight in the bed scale is not available. PHYSICAL EXAMINATION: GENERAL: The patient is awake, alert, and oriented times three, lying in bed, getting hemodialysis done. HEAD/NECK: Extraocular muscles intact. Pupils equal, round, and reactive to light. Mucous membranes are dry. Neck is supple. There is no jugular venous distention (JVD). CARDIOVASCULAR: S1, S2. Tachycardia. No murmur, rub, or gallop. RESPIRATORY: Left lung is clear to auscultation. The patient is status post right thoracotomy and pneumonectomy in the past. ABDOMEN: Soft, nontender. Positive bowel sounds. MUSCULOSKELETAL: No clubbing or cyanosis. Pulses are 2+. The patient has a left forearm arteriovenous (AV) fistula which is being used for dialysis at this time. CENTRAL NERVOUS SYSTEM (MOUNTER SAXOPHONES): No focal neurologic deficit. Power is 5/5 in all extremities. SKIN: No rashes or ulcers. PSYCHIATRIC: Normal mood and affect. LABORATORY DATA: CBC showed a WBC of 22.2, hemoglobin 13.9, platelets are 403. BMP showed sodium 136, potassium 4.3, chloride 100, bicarbonate 25, BUN 66, creatinine four. C-reactive protein is 5.1. MICROBIOLOGY: Repeat blood cultures are pending at this time. Initial urine culture sent on 04/09 is growing pseudomonas. IMAGING: Repeat CT scan chest, abdomen, and pelvis to look for source of infection was done today morning. Official report is pending. CURRENT INPATIENT MEDICATIONS: The patient's medications were all reviewed by me. He is currently on intravenous (IV) vancomycin and Zosyn. There is no other change in the medications today as compared with yesterday. ASSESSMENT: 87-year-old male with past medical history of end-stage renal disease on hemodialysis, history of bilateral ureteral stents which are exchanged very three months, history of frequent urinary tract infections (UTIs) admitted this time because of falls. He was found to have Pseudomonas UTI. Nephrology team following the patient for management of end-stage renal disease. PLAN: 1. End-stage renal disease: The patient's regular dialysis are Sunday, , Sunday during this hospitalization. His outpatient schedule is Sunday, Sunday, Sunday. Continue the current inpatient schedule at this time. No fluid removal because the patient looks dry. 2. Pseudomonas urinary tract infection: The patient is currently on IV Zosyn. He continues to have leukocytosis. Vancomycin was also added for coverage. CT scan of the chest, abdomen and pelvis was done to look for source of infection. Official report is pending. 3. Anemia in end-stage renal disease: The patient's hemoglobin is 13.9 which is optimal. No need of Aranesp administration at this time. 4. Recurrent falls: The patient needs physical therapy. He has been falling at home multiple times. Part of it might be related to infections, but the patient is physically deconditioned as well.
[2017-04-14] MEDS: PIPERACILLIN/TAZOBACTAM SOD 2.25 GM in APPROPRIATE DILUENT 1 EA IV SCH ×2 (16:48→22:47)
[2017-04-14] MEDS: ONDANSETRON 4MG/2ML VIAL (J2405) IV PRN (20:33)
[2017-04-14 22:00] VITALS: BP 139/79
[2017-04-15] MEDS: IPRATROPIUM 0.5MG/ALBUTEROL 2.5MG INH SOL UD 3ML (DUONEB)(J7620) NEB SCH ×5 (01:01→23:39)
[2017-04-15] MEDS: ACETAMINOPHEN TAB 650MG DOSE (2X325MG) PO PRN ×2 (05:26→20:22)
[2017-04-15 06:00] VITALS: BP 135/81
[2017-04-15 06:34] LABS: MEAN CORPUSCULAR HEMOGLOBIN 31.9 pg (27.0-33.0); MEAN CORPUSCULAR HGB CONC 32.9 g/dl (32.0-36.5); MEAN CORPUSCULAR VOLUME 96.8 fl (80.0-96.0); PLATELET COUNT, AUTOMATED 399 10^3/uL (150-450); RED CELL DISTRIBUTION WIDTH 13.6 % (11.5-14.5); WHITE BLOOD COUNT 18.5 10^3/uL (4.0-10.0)
[2017-04-15 07:02] LABS: CALCIUM LEVEL 9.4 MG/DL (8.8-10.2); CREATININE FOR GFR 3.03 MG/DL (0.70-1.30); GLOMERULAR FILTRATION RATE 20.8 (>35)
[2017-04-15 07:47] LABS: ERYTHROCYTE SEDIMENTATION RATE 34 mm/hr (0-30)
[2017-04-15] MEDS: FERROUS GLUCONATE 324 MG TAB PO SCH ×2 (09:04→20:21)
[2017-04-15] MEDS: LACTOBACILLUS ACIDOPHILUS CAP (BACID) PO SCH ×2 (09:04→20:21)
[2017-04-15] MEDS: VITAMIN D 1,000 INTERNATIONAL UNITS TABLET PO SCH (09:04)
[2017-04-15] MEDS: VITAMIN B COMPLEX/VIT C CAP PO SCH (09:04)
[2017-04-15] MEDS: SENOKOT S TAB PO SCH ×2 (09:04→20:21)
[2017-04-15] MEDS: HEPARIN SOD (PORCINE) 5000 UNITS/ML VIAL SQ SCH ×2 (09:05→20:21)
[2017-04-15] MEDS: KETOCONAZOLE 2% CREAM TOP SCH ×2 (09:05→20:21)
--- NOTE | 2017-04-15 10:35 | IPNPDOC ---
Subjective Date Seen The patient was seen on 04/15/17. Subjective Chief Complaint/HPI Patient seen and examined at the bedside. States that he is feeling well this morning, and denies any acute complaints at this time. Objective Physical Examination General Exam: Positive: Alert, Cooperative, No Acute Distress Eye Exam: Negative: Sclera icteric ENT Exam: Positive: Atraumatic, Mucous membr. moist/pink Neck Exam: Negative: JVD Chest Exam: Positive: Clear to auscultation, Other (Diminised breath sounds in the RUL) Heart Exam: Positive: Rate Normal, Normal S1, Normal S2 Abdomen Exam: Positive: Soft, Negative: Tenderness Extremity Exam: Negative: Tenderness, Swelling Psych Exam: Positive: Oriented x 3 Assessment /Plan Plan/VTE VTE Prophylaxis Ordered?: Yes (heparin, HARSHA/SCD) Plan Leukocytosis Abnormal UA/Urine Culture notably positive for Pseudomonas aeruginosa The patient's only c/o at this time is generalized weakness/recurrent falls which apparently he has been having for the past 6 months according to the patient's family. However given the rise of his WBC, the patient has been started on Zosyn for treatment of possible underlying UTI. In addition, Vancomycin was added for empiric coverage on 04/14 given the unclear source of infection Patient has remained afebrile here, w/o any other focal complaints Blood Cultures from 04/09 negative, Repeat Blood Cultures from 04/14 unrevealing thus far ESR, CRP markers noted we will cont to trend WBC downtrending this AM We will cont to monitor progress History of recurrent UTIs The patient does have b/l ureteral stents which he has exchanged every 2-3 months secondary to B/L Hydronephrosis from underlying Prostate Ca Last exchanged on 04/05 On empiric coverage as noted above Recurrent falls, deconditioning PT/OT on board for functional optimization PFS on board for potential placement Chronic Obstructive Pulmonary Disease, stable CXR negative for acute process Continue regimen as ordered ESRD Nephro on board for regularly scheduled dialysis sessions History of lung cancer s/p right pneumonectomy History of colon cancer s/p hemicolectomy History of Prostate Ca DVT Prophylaxis Heparin SC DISPOSITION: Likely placement for continued rehab. VS, I&O, 24H, Fishbone Vital Signs/I&O Vital Signs Date Time Temp Pulse Resp B/P (MAP) Pulse Ox O2 Delivery O2 Flow Rate FiO2 04/15/17 06:00 97.6 72 17 135/81 (99) 95 Room Air I&O- Last 24 Hours up to 6 AM 04/16/17 06:00 Intake Total 120 ml Balance 120 ml Laboratory Data 24H LABS Laboratory Tests 2 04/15/17 05:58: Nucleated Red Blood Cells % (auto) 0.0, Erythrocyte Sedimentation Rate 34H, Anion Gap 10, Glomerular Filtration Rate 20.8L, Blood Urea Nitrogen 43H, Creatinine 3.03H, Sodium Level 138, Potassium Level 4.0, Chloride Level 100, Carbon Dioxide Level 28, Calcium Level 9.4, C-Reactive Protein, Quantitative 5.24H CBC/BMP Laboratory Tests 04/15/17 05:58 Red Blood Count 4.05 L, Mean Corpuscular Volume 96.8 H, Mean Corpuscular Hemoglobin 31.9, Mean Corpuscular Hemoglobin Concent 32.9, Red Cell Distribution Width 13.6, Calcium Level 9.4 Microbiology Microbiology 04/14/17 Blood Culture - Preliminary, Resulted No growth after 24 hours . All specim... 04/14/17 Blood Culture - Preliminary, Resulted No growth after 24 hours . All specim... 04/09/17 Blood Culture - Final, Complete NO GROWTH AFTER 5 DAYS 04/09/17 Blood Culture - Final, Complete NO GROWTH AFTER 5 DAYS 04/14/17 MRSA Screen, Received Pending 04/12/17 Gram Stain - Final, Complete 04/12/17 Sputum Culture - Final, Complete 04/10/17 Gram Stain - Final, Complete 04/10/17 Sputum Culture - Final, Complete 04/09/17 Urine Culture - Final, Complete Pseudomonas Aeruginosa ZAN GARRIDO MD Apr 15, 2017 10:35
[2017-04-15] MEDS: PIPERACILLIN/TAZOBACTAM SOD 2.25 GM in APPROPRIATE DILUENT 1 EA IV SCH ×2 (11:45→23:22)
[2017-04-15 14:00] VITALS: BP 136/74
--- NOTE | 2017-04-15 21:04 | IPN ---
DATE: 04/15/2017 SUBJECTIVE: The patient was seen and examined at the bedside today morning. He denies any acute complaints. The patient was dialyzed yesterday. He tolerated the hemodialysis procedure well. REVIEW OF SYSTEMS: The patient denies any fevers, chills, rigors, headaches, nausea, vomiting, chest pain, shortness of breath, pain abdomen, constipation, or diarrhea. Rest of review of systems is negative. OBJECTIVE: VITAL SIGNS: Temperature is 98.2 degrees Fahrenheit, blood pressure is 136/74, pulse is 100, respiratory rate of 18, saturating 99% on room air. INTAKE AND OUTPUT: Urine output recorded as only 50 mL. There was no ultrafiltration done with hemodialysis because the patient was volume depleted. Weight in the bed scale is 66 kg. PHYSICAL EXAMINATION: GENERAL: The patient is awake, alert, and oriented times three, sitting in bed, no apparent distress. HEAD/NECK: Extraocular muscles intact. Pupils equal, round, and reactive to light. Mucous membranes are moist. Neck is supple. There is no jugular venous distention (JVD). CARDIOVASCULAR: S1, S2. Irregular rate. Slightly tachycardia. No murmur, rub, or gallop. RESPIRATORY: Left lung is clear to auscultation. No breath sounds on the right. ABDOMEN: Soft, nontender. Positive bowel sounds. MUSCULOSKELETAL: No clubbing or cyanosis. Pulses are 2+. ARTERIOVENOUS (AV) ACCESS: The patient has a left forearm AV fistula with positive thrill and bruit. CENTRAL NERVOUS SYSTEM (WOOD PANEL INSPECTOR): No focal neurological deficit. Power is 5/5 in all extremities. PSYCHIATRIC: Normal mood and affect. LABORATORY DATA: CBC showed WBC 18.5 which is slightly better than yesterday. Hemoglobin 12.9, platelets at 399. BMP showed sodium 138, potassium four, chloride 100, bicarbonate 28, BUN 43, creatinine of three. Calcium 9.4. CURRENT INPATIENT MEDICATIONS: The patient's medications were all reviewed by me. He is currently on Zosyn. Vancomycin dose has been changed to 1 gram with hemodialysis. There is no other change in the medications today as compared with yesterday. ASSESSMENT: An 87-year-old male with past medical history of end-stage renal disease on hemodialysis, history of right pneumonectomy, history of bilateral ureteral stents which are changed every three months, and history of frequent urinary tract infections (UTI), admitted this time because of weakness, frequent falls, and was found to have Pseudomonas UTI. Nephrology service following the patient for management of end-stage renal disease. PLAN: 1. End-stage renal disease: The patient was dialyzed according to his schedule yesterday. Next hemodialysis session will be tomorrow. Because of the long weekend, Sunday, , Sunday patients will be dialyzed on Sunday. 2. Pseudomonas urinary tract infection: The patient is currently on IV Zosyn. Leukocytosis is improving. CT scan of the abdomen and pelvis was done yesterday which did not show any evidence of infection. 3. Recurrent falls: The patient needs extensive physical therapy. He has been frequently falling for the last six months.
[2017-04-15 22:00] VITALS: BP 147/80
[2017-04-16] MEDS: ONDANSETRON 4MG/2ML VIAL (J2405) IV PRN (01:03)
[2017-04-16 06:00] VITALS: BP 156/75
[2017-04-16] MEDS: HEPARIN SOD (PORCINE) 5000 UNITS/ML VIAL SQ SCH ×2 (06:42→21:07)
[2017-04-16] MEDS: FERROUS GLUCONATE 324 MG TAB PO SCH ×2 (06:42→21:07)
[2017-04-16] MEDS: SENOKOT S TAB PO SCH ×2 (06:42→21:07)
[2017-04-16] MEDS: LACTOBACILLUS ACIDOPHILUS CAP (BACID) PO SCH ×2 (06:42→21:07)
[2017-04-16] MEDS: VITAMIN D 1,000 INTERNATIONAL UNITS TABLET PO SCH (06:42)
[2017-04-16] MEDS: VITAMIN B COMPLEX/VIT C CAP PO SCH (06:43)
[2017-04-16] MEDS: KETOCONAZOLE 2% CREAM TOP SCH ×2 (06:44→21:08)
[2017-04-16] MEDS: IPRATROPIUM 0.5MG/ALBUTEROL 2.5MG INH SOL UD 3ML (DUONEB)(J7620) NEB SCH ×3 (07:15→20:09)
[2017-04-16] MEDS ORDERED: LIDOCAINE 1% SDV 5 ML VIAL SQ ONE (10:00)
[2017-04-16] MEDS ORDERED: HEPARIN 1,000 UNITS/ML 10ML VIAL (FOR RADIOLOGY& DIALYSIS ONLY) IV ONE (10:00)
--- NOTE | 2017-04-16 10:41 | IPNPDOC ---
Subjective Date Seen The patient was seen on 04/16/17. Subjective Chief Complaint/HPI The patient is a 87-year-old male admitted with a reason for visit of Fall Uti. General: Reports: Normal Appetite, Denies: Chills, Night Sweats, Fatigue, Malaise Constitutional: Reports: Weakness, Denies: Chills, Fever Eyes: Denies: Pain, Vision change ENT: Denies: Head Aches Skin: Denies: Rash, Lesions Pulmonary: Denies: Dyspnea, Cough Cardiovascular: Denies: Chest Pain, Palpitations Gastrointestinal: Denies: Nausea, Vomiting, Abdominal Pain Genitourinary: Denies: Dysuria Neurological: Reports: Weakness, Denies: Numbness Psych: Reports: Mood Normal Objective Physical Examination General Exam: Positive: Alert, Cooperative, No Acute Distress Eye Exam: Negative: Sclera icteric ENT Exam: Positive: Atraumatic, Mucous membr. moist/pink Neck Exam: Negative: JVD Chest Exam: Positive: Clear to auscultation, Other (Diminised breath sounds in the RUL) Heart Exam: Positive: Rate Normal, Normal S1, Normal S2 Abdomen Exam: Positive: Soft, Negative: Tenderness Extremity Exam: Negative: Edema, Tenderness, Swelling Neuro Exam: Negative: Normal Speech (garbled, this is not new) Psych Exam: Positive: Oriented x 3 Assessment /Plan Assessment 87-year-old male admitted for weakness and recurrent falls 1. Leukocytosis Today decreased to 18.5 from 22.2 Patient demonstrated abnormal UA, urine culture positive for Pseudomonas aeruginosa Patient denies having pain with urination, denies blood in urine or increased frequency His only complaint continues to be about generalized weakness, this apparently has been chronic for the past 6 months according to patient's family Patient's white blood cell count has decreased today, he was previously started on Zosyn for possible underlying UTI Vancomycin was also added for empiric coverage on 04/14/2017 given non-focal source of infection Patient continues to remain afebrile with no focal complaints Repeat blood cultures from 04/09/2017 negative, repeat blood cultures from 04/14 have been unrevealing as far ESR and CRP markers remain elevated although relatively unchanged Abdomen pelvic CT scan demonstrated no source for infection, mild bilateral hydronephrosis with bilateral nephrostomy tubes. Good position, no adenopathy, free air or free fluid. No evidence acute finding. Will continue to follow ESR and CRP 2. History of recurrent UTI Patient has bilateral ureteral stents which are exchanged every 2-3 months secondary to bilateral hydronephrosis from underlying prostate cancer Stents her last exchanged 04/05/2017 Patient is on empiric antibiotic coverage as noted above 3. Recurrent falls likely secondary to deconditioning PTOT has been working with patient for functional optimization PFS is on board for potential placement We'll follow their recommendations 4.COPD Stable Chest x-rays have been negative for acute processes We will continue regimens as ordered 5. End-stage renal disease Nephrology on board for patient's regular scheduled dialysis sessions, patient was dialyzed 2 days ago. Appreciate their help. Next dialysis will be today 6. Sinus tachycardia seems whenever patient ambulates his HR is going to 150-160's with resolution once he is resting, on the monitor this has been sinus tachycardia, cannot appreciate underlying arrhythmia such as a. fib, in any event patient may benefit on anticoagulation but would have to be cautious as history of recurrent falls, will hold beta alcira at this time-this could also be a normal physiological response to infection. Patient remains asx with no chest pain nor heart palpitations during these events, no SOB or diaphoresis either. 7. History of lung cancer Patient is status post right pneumonectomy 8. History of colon cancer Patient status post hemicolectomy 9. History of prostate cancer Stable 10.DVT prophylaxis Continue with heparin Plan/VTE VTE Prophylaxis Ordered?: Yes (heparin, HARSHA/SCD) VS, I&O, 24H, Fishbone Vital Signs/I&O Vital Signs Date Time Temp Pulse Resp B/P (MAP) Pulse Ox O2 Delivery O2 Flow Rate FiO2 04/16/17 06:00 97.6 85 20 156/75 (102) 95 Room Air Laboratory Data Microbiology Microbiology 04/14/17 Blood Culture - Preliminary, Resulted No Growth after 48 hours. All Specime... 04/14/17 Blood Culture - Preliminary, Resulted No Growth after 48 hours. All Specime... 04/09/17 Blood Culture - Final, Complete NO GROWTH AFTER 5 DAYS 04/09/17 Blood Culture - Final, Complete NO GROWTH AFTER 5 DAYS 04/14/17 MRSA Screen - Final, Complete 04/12/17 Gram Stain - Final, Complete 04/12/17 Sputum Culture - Final, Complete 04/10/17 Gram Stain - Final, Complete 04/10/17 Sputum Culture - Final, Complete 04/09/17 Urine Culture - Final, Complete Pseudomonas Aeruginosa GME ATTESTATION GME ATTESTATION My faculty preceptor for this patient encounter was physically present during the encounter and was fully available. All aspects of the patient interview, examination, medical decision making process, and medical care plan development were reviewed and approved by the faculty preceptor. The faculty preceptor is aware and concurs with the plan as stated in the body of this note and will attest to such by his/her cosignature. STEVEN CARSON DO Apr 16, 2017 10:41
[2017-04-16] MEDS ORDERED: VANCOMYCIN HCL 1,000 MG, VIAL MATE ADAPTER 1 EACH in D5W 250 ML IV SCH (10:45)
[2017-04-16 11:59] LABS: BASO # 0.1 10^3/uL (0.0-0.2); BASO % 0.6 % (0.0-1.0); EOS % 0.1 % (0.0-3.0); IMMATURE GRANULOCYTE % 3.5 % (0-0); LYMPH # 0.5 10^3/uL (1.5-4.5); LYMPH % 2.7 % (24.0-44.0); MEAN CORPUSCULAR HEMOGLOBIN 32.9 pg (27.0-33.0); MEAN CORPUSCULAR HGB CONC 33.1 g/dl (32.0-36.5); MEAN CORPUSCULAR VOLUME 99.2 fl (80.0-96.0); MONO # 0.9 10^3/uL (0.0-0.8); MONO % 4.9 % (0.0-5.0); NEUTROPHILS # 15.6 10^3/uL (1.8-7.7); NEUTROPHILS % 88.2 % (36.0-66.0); PLATELET COUNT, AUTOMATED 418 10^3/uL (150-450); RED CELL DISTRIBUTION WIDTH 13.8 % (11.5-14.5); WHITE BLOOD COUNT 17.7 10^3/uL (4.0-10.0)
--- NOTE | 2017-04-16 11:59 | IPN ---
DATE: 04/16/2017 SUBJECTIVE: The patient was seen and examined at the bedside today morning due to hemodialysis procedure. The patient is tolerating the hemodialysis procedure well. He denies any active complaints at this time. REVIEW OF SYSTEMS: The patient denies any fevers, chills, rigors, chest pain. He does have baseline shortness of breath. He denies any pain in abdomen, constipation or diarrhea. The rest of review of systems is negative. OBJECTIVE: VITAL SIGNS: Temperature 97.6 degrees Fahrenheit. Blood pressure 156/75. Pulse 85. Respiratory rate 20. Saturating 95% on room air. INTAKE AND OUTPUT: Urine output is not recorded. Weight on the bed scale is 65 kg. There was no ultrafiltration done on previous hemodialysis session because of volume depletion. PHYSICAL EXAMINATION: GENERAL: The patient is awake, alert and oriented times three, weak, cachectic, laying in bed getting hemodialysis done. HEAD AND NECK EXAM: Extraocular muscles intact. Pupils equally round and reactive to light. Mucous membranes are dry. Neck is supple. There is no jugular venous distention (JVD). CARDIOVASCULAR: S1, S2, irregularly irregular heart rate. No murmur, rub or gallop. RESPIRATORY: Left lung is clear to auscultation. Patient is status post right pneumonectomy. ABDOMEN: Soft. Nontender. Positive bowel sounds. MUSCULOSKELETAL: No clubbing or cyanosis. Pulses 2+. AV ACCESS: Patient has a left forearm AV fistula which is being used for dialysis at this time. CENTRAL NERVOUS SYSTEM (CYLINDER INSPECTOR AND TESTER): No focal neurological deficit. Power is 5/5 in all extremities. PSYCHIATRIC: Normal mood and affect. LAB REVIEW: CBC was done yesterday. There is no CBC available for today. Potassium on BMP done yesterday was 4. INPATIENT MEDICATIONS: The patient's medications are all reviewed by me. He continues to be on IV Zosyn and IV vancomycin. There is no other change in the medications today as compared with yesterday. ASSESSMENT: 87-year-old male with past medical history of end stage renal disease on hemodialysis, history of right pneumonectomy, history of bilateral ureteral stents which are changed every three months, history of frequent UTIs in the past, admitted at this time because of weakness, frequent falls. He was found to have Pseudomonas UTI. Nephrology service is following the patient for the management of end stage renal disease. PLAN: 1. End stage renal disease. Patient is being dialyzed according to his regular schedule. Ultrafiltration goal will be only 500 mL. The patient looks clinically dry at this time. 2. Pseudomonas UTI. The patient is currently on IV Zosyn. He is on IV vancomycin as well because of persistent leukocytosis, although the repeat blood cultures are negative so far. 3. Recurrent falls. The patient is physically deconditioned and needs extensive physical therapy. The patient would likely need to be placed on rehabilitation in a long term.
[2017-04-16 12:19] LABS: CALCIUM LEVEL 8.9 MG/DL (8.8-10.2); CREATININE FOR GFR 4.06 MG/DL (0.70-1.30); GLOMERULAR FILTRATION RATE 14.9 (>35); POTASSIUM SERUM 3.4 MEQ/L (3.5-5.1)
[2017-04-16 12:23] LABS: ERYTHROCYTE SEDIMENTATION RATE 37 mm/hr (0-30)
[2017-04-16] MEDS: PIPERACILLIN/TAZOBACTAM SOD 2.25 GM in APPROPRIATE DILUENT 1 EA IV SCH ×2 (13:38→23:00)
[2017-04-16] MEDS ORDERED: CHECK TO SEE IF PATIENT IS RECEIVING DIALYSIS TODAY AND REFER TO THE VANCOMYCIN ORDER XX SCH (16:00)
[2017-04-16] MEDS: ACETAMINOPHEN TAB 650MG DOSE (2X325MG) PO PRN (21:08)
[2017-04-16 22:00] VITALS: BP 138/65
[2017-04-17] VITALS (7 sets, daily range): BP systolic 136–177; BP diastolic 60–78
[2017-04-17] MEDS: IPRATROPIUM 0.5MG/ALBUTEROL 2.5MG INH SOL UD 3ML (DUONEB)(J7620) NEB SCH ×4 (01:35→19:55)
[2017-04-17] MEDS: ACETAMINOPHEN TAB 650MG DOSE (2X325MG) PO PRN ×2 (05:45→21:24)
[2017-04-17] MEDS ORDERED: ANALGESIC BALM CRM 120 GM TOP PRN (06:30)
[2017-04-17 06:40] LABS: MEAN CORPUSCULAR HEMOGLOBIN 32.6 pg (27.0-33.0); MEAN CORPUSCULAR VOLUME 98.9 fl (80.0-96.0); PLATELET COUNT, AUTOMATED 389 10^3/uL (150-450); RED CELL DISTRIBUTION WIDTH 13.6 % (11.5-14.5); WHITE BLOOD COUNT 17.1 10^3/uL (4.0-10.0)
[2017-04-17 06:55] LABS: ALBUMIN 2.6 GM/DL (3.2-5.2); ALBUMIN/GLOBULIN RATIO 0.7 (1.00-1.93); BILIRUBIN,TOTAL 0.4 MG/DL (0.2-1.0); CALCIUM LEVEL 9.2 MG/DL (8.8-10.2); CREATININE FOR GFR 3.16 MG/DL (0.70-1.30); GLOMERULAR FILTRATION RATE 19.9 (>35); MAGNESIUM LEVEL 2.2 MG/DL (1.8-2.4); TOTAL PROTEIN 6.3 GM/DL (6.4-8.2)
[2017-04-17] MEDS ORDERED: ACETAMINOPHEN TAB 650MG DOSE (2X325MG) PO ONE (09:00)
[2017-04-17] MEDS: SENOKOT S TAB PO SCH ×2 (09:00→21:24)
[2017-04-17] MEDS: VITAMIN B COMPLEX/VIT C CAP PO SCH (09:41)
[2017-04-17] MEDS: LACTOBACILLUS ACIDOPHILUS CAP (BACID) PO SCH ×2 (09:42→21:24)
[2017-04-17] MEDS: VITAMIN D 1,000 INTERNATIONAL UNITS TABLET PO SCH (09:42)
[2017-04-17] MEDS: FERROUS GLUCONATE 324 MG TAB PO SCH ×2 (09:42→21:24)
[2017-04-17] MEDS: KETOCONAZOLE 2% CREAM TOP SCH ×2 (09:52→21:26)
--- NOTE | 2017-04-17 11:05 | IPNPDOC ---
Subjective Date Seen The patient was seen on 04/17/17. Subjective Chief Complaint/HPI The patient is a 87-year-old male admitted with a reason for visit of Fall Uti. General: Denies: Chills, Night Sweats, Fatigue, Malaise Constitutional: Reports: Malaise, Weakness, Fatigue, Denies: Chills, Fever Eyes: Denies: Pain, Vision change ENT: Denies: Head Aches Skin: Denies: Rash Pulmonary: Denies: Dyspnea, Cough, Pleuritic Chest Pain Cardiovascular: Denies: Chest Pain, Palpitations, Orthopnea, Edema, Lt Headedness Gastrointestinal: Denies: Nausea, Vomiting, Abdominal Pain, Diarrhea, Constipation Genitourinary: Denies: Dysuria Hematologic: Denies: Bruising Musculoskeletal: Reports: Back Pain (increasing right sided back pain, superior medial scapula, present since admission, achey, no history of recent trauma to account for increasing pain) Neurological: Reports: Weakness Psych: Reports: Mood Normal Objective Physical Examination General Exam: Positive: Alert, Cooperative, No Acute Distress Eye Exam: Negative: Sclera icteric ENT Exam: Positive: Atraumatic, Mucous membr. moist/pink Neck Exam: Negative: JVD Chest Exam: Positive: Clear to auscultation, Other (Diminised breath sounds in the RUL, chronic) Heart Exam: Positive: Rate Normal, Normal S1, Normal S2 Abdomen Exam: Positive: Soft, Negative: Tenderness Extremity Exam: Positive: Other (tenderness to palpitation of right scapula medial superior by T4-5, small abrasion noted on right scapula, scant amount of serous drainage on bandage), Negative: Edema, Tenderness, Swelling Neuro Exam: Negative: Normal Speech (garbled, this is not new) Psych Exam: Positive: Oriented x 3 Assessment /Plan Assessment 1. Leukocytosis Today decreased to 17.1 from 17.7 Patient demonstrated abnormal UA, urine culture positive for Pseudomonas aeruginosa Will repeat U/A and U/Cx. Patient continues to deny pain with urination, denies blood in urine or increased frequency He now complains about his back pain, located in his right upper scapula region , medial, around his mid thoracic region, achy, states it has been present since admission but his tylenol is not helping and its getting worse, especially with movement, denies failling onto that area to account for increased pain, he does have a small abrasion in the area but he states this is not the pain. His continues to complain about his generalized weakness, this apparently has been chronic for the past 6 months according to patient's family Patient's white blood cell count has decreased today, he was previously started on Zosyn for possible underlying UTI Vancomycin was also added for empiric coverage on 04/14/2017 given non-focal source of infection Patient continues to remain afebrile with no focal source for infection, aside from UTI Repeat blood cultures from 04/09/2017 negative, repeat blood cultures from 04/14 have been unrevealing as far ESR and CRP markers remain elevated one day ago, although relatively unchanged the CRP did increase to 7.27 from 5.24 one day ago Abdomen pelvic CT scan demonstrated no source for infection, mild bilateral hydronephrosis with bilateral nephrostomy tubes. Good position, no adenopathy, free air or free fluid. No evidence acute finding. Will continue to follow ESR and CRP 2. History of recurrent UTI Patient has bilateral ureteral stents which are exchanged every 2-3 months secondary to bilateral hydronephrosis from underlying prostate cancer Stents her last exchanged 04/05/2017 Patient is on empiric antibiotic coverage as noted above, can c/w therapy, patient remains afebrile repeat u.a and ucx. 3. Recurrent falls likely secondary to deconditioning PTOT has been working with patient for functional optimization, he is not doing well with PT as per conversation with PT today, continues to fall backwards with ambulation PFS is on board for potential placement We'll follow their recommendations 4. Back pain - Given his lung cancer and being status post right pneumonectomy, we'll evaluate for possible bony metastases -Have ordered whole-body bone scan and rib series to rule out fracture -Continue with pain control, further recommendations as imaging studies become available 5.COPD Stable Chest x-rays have been negative for acute processes We will continue regimens as ordered 6. End-stage renal disease Nephrology on board for patient's regular scheduled dialysis sessions, patient was dialyzed 2 days ago. Appreciate their help. Next dialysis will be today 7. Sinus tachycardia seems at times when patient ambulates his HR is going to 150-160's with resolution once he is resting, on the monitor this has been sinus tachycardia, cannot appreciate underlying arrhythmia such as a. fib, in any event patient may benefit on anticoagulation but would have to be cautious as history of recurrent falls, will hold beta alcira at this time-this could also be a normal physiological response to infection. Patient continues to remain asx with no chest pain nor heart palpitations during these events, no SOB or diaphoresis either. 8. History of lung cancer Patient is status post right pneumonectomy 9. History of colon cancer Patient status post hemicolectomy 10. History of prostate cancer Stable 11.DVT prophylaxis Continue with heparin Plan/VTE VTE Prophylaxis Ordered?: Yes (heparin, HARSHA/SCD) VS, I&O, 24H, Fishbone Vital Signs/I&O Vital Signs Date Time Temp Pulse Resp B/P (MAP) Pulse Ox O2 Delivery O2 Flow Rate FiO2 04/17/17 10:19 Room Air 04/17/17 10:13 97.7 82 20 148/76 95 I&O- Last 24 Hours up to 6 AM 04/18/17 06:00 Intake Total 180 ml Balance 180 ml Laboratory Data 24H LABS Laboratory Tests 2 04/17/17 06:13: Nucleated Red Blood Cells % (auto) 0.0, Anion Gap 9, Glomerular Filtration Rate 19.9L, Blood Urea Nitrogen 41H, Creatinine 3.16H, Sodium Level 137, Potassium Level 4.0, Chloride Level 101, Carbon Dioxide Level 27, Calcium Level 9.2, Aspartate Amino Transf (AST/SGOT) 13, Alanine Aminotransferase (ALT/SGPT) 11L, Alkaline Phosphatase 59, Total Bilirubin 0.4, Total Protein 6.3L, Albumin 2.6L, Magnesium Level 2.2, Albumin/Globulin Ratio 0.70L CBC/BMP Laboratory Tests 04/17/17 06:13 Red Blood Count 3.62 L, Mean Corpuscular Volume 98.9 H, Mean Corpuscular Hemoglobin 32.6, Mean Corpuscular Hemoglobin Concent 33.0, Red Cell Distribution Width 13.6, Calcium Level 9.2, Aspartate Amino Transf (AST/SGOT) 13 , Alanine Aminotransferase (ALT/SGPT) 11 L, Alkaline Phosphatase 59, Total Bilirubin 0.4, Total Protein 6.3 L, Albumin 2.6 L Microbiology Microbiology 04/14/17 Blood Culture - Preliminary, Resulted No Growth after 72 hours. All specime... 04/14/17 Blood Culture - Preliminary, Resulted No Growth after 72 hours. All specime... 04/09/17 Blood Culture - Final, Complete NO GROWTH AFTER 5 DAYS 04/09/17 Blood Culture - Final, Complete NO GROWTH AFTER 5 DAYS 04/14/17 MRSA Screen - Final, Complete 04/12/17 Gram Stain - Final, Complete 04/12/17 Sputum Culture - Final, Complete 04/10/17 Gram Stain - Final, Complete 04/10/17 Sputum Culture - Final, Complete 04/09/17 Urine Culture - Final, Complete Pseudomonas Aeruginosa GME ATTESTATION GME ATTESTATION My faculty preceptor for this patient encounter was physically present during the encounter and was fully available. All aspects of the patient interview, examination, medical decision making process, and medical care plan development were reviewed and approved by the faculty preceptor. The faculty preceptor is aware and concurs with the plan as stated in the body of this note and will attest to such by his/her cosignature. STEVEN CARSON DO Apr 17, 2017 11:05
[2017-04-17] MEDS: PIPERACILLIN/TAZOBACTAM SOD 2.25 GM in APPROPRIATE DILUENT 1 EA IV SCH ×2 (11:10→23:43)
[2017-04-17] MEDS: HEPARIN SOD (PORCINE) 5000 UNITS/ML VIAL SQ SCH ×2 (11:10→21:26)
--- NOTE | 2017-04-17 13:48 | IPN ---
DATE OF SERVICE: 04/17/2017 SUBJECTIVE: The patient was seen and examined at the bedside. He was sitting in the sofa today. He feels better, hemodynamically stable. The patient was dialyzed yesterday. He tolerated the hemodialysis procedure well. REVIEW OF SYSTEMS: The patient denies any fever, chills, rigors. He denies any chest pain, shortness of breath. He denies any pain abdomen. He does report loose stools. The rest of review of systems is negative. OBJECTIVE: VITAL SIGNS: Temperature is 97.7 degrees Fahrenheit. Blood pressure is 148/67. Pulse is 82. Respiratory rate of 20. Saturating 95% on room air. INTAKE AND OUTPUT: Urine output is not recorded well. Ultrafiltration with hemodialysis was 550 mL yesterday. Weight is stable at 64 kg. PHYSICAL EXAMINATION: GENERAL: The patient is awake, alert, oriented times three, sitting in the sofa, weak, and cachectic. HEAD AND NECK EXAMINATION: Extraocular muscles intact. Pupils equally round and reactive to light. Mucous membranes are moist. Neck is supple. There is no jugular venous distention (JVD). CARDIOVASCULAR: S1, S2, irregularly irregular heart rate. No murmur, rub, and gallop. RESPIRATORY: Left lung is clear to auscultation. The patient is status post right pneumonectomy. ABDOMEN: Soft. Nontender. Positive bowel sounds. No organomegaly. MUSCULOSKELETAL: No clubbing or cyanosis. Pulses are 2+. AV ACCESS: The patient has a left forearm AV fistula with thrill and bruit. CENTRAL NERVOUS SYSTEM (CHIP DRIER): No focal neurological deficit. Power is 5/5 in all extremities. PSYCHIATRIC: Normal mood and affect. LABORATORY REVIEW: CBC showed a WBC 17.1, hemoglobin is 11.8, platelets are 389. BMP showed sodium 137, potassium is 4, chloride 101, bicarbonate 27, BUN 41, creatinine is 3.1. MICROBIOLOGY: Blood cultures drawn on 04/14/2017 are negative so far. CURRENT INPATIENT MEDICATIONS: The patient's medications are all reviewed by me. The patient continues to be on intravenous (IV) Zosyn and IV vancomycin. There is no other change in the medications today as compared with yesterday. ASSESSMENT: An 87-year-old male with past medical history of end-stage renal disease on hemodialysis, history of right pneumonectomy, bilateral ureteral stents which are changed every 3 months, history of frequent urinary tract infections (UTIs) in the past, admitted this time because of weakness and frequent falls. The patient was found to have Pseudomonas UTI. PLAN: 1. End-stage renal disease. The patient is being dialyzed according to his regular schedule. He was dialyzed yesterday. No urgent need of hemodialysis today. Next hemodialysis session will be tomorrow. 2. Pseudomonas urinary tract infection. The patient is on IV Zosyn. All the cultures are negative so far. Vancomycin is being stopped. The patient continues to have leukocytosis. I am going to add antifungal, as well. 3. Frequent falls. The patient continues to get physical therapy, and we are doing minimal ultrafiltration with hemodialysis sessions at this time.
[2017-04-17] MEDS: METOPROLOL TART 25 MG TABLET PO SCH ×2 (15:11→21:25)
[2017-04-17] MEDS: FLUCONAZOLE 100 MG TAB PO SCH (15:11)
--- NOTE | 2017-04-17 19:24 | REP ---
Right rib series: Seven views including PA chest. History: Back pain. Medial right scapular pain. History of lung carcinoma. Metastasis versus fracture. Comparison chest x-ray is from April 12, 2017 and April 09, 2017. Also reviewed is an January 23, 2017 prior chest x-ray. Findings: There is an old fracture of the anterolateral right 7th rib. The patient status post right pneumonectomy. Left lung is clear. There are bilateral ureteral stents noted in the upper abdomen. Granulomatous calcifications are visible in the spleen. There is extensive pleural calcification in the right hemithorax particularly superiorly. There is post thoracotomy change in the right 6th posterolateral rib. The pleural calcification overlies the upper rib cage. No focal bony destructive lesion can be seen. No acute rib fracture is noted. Impression: Post thoracotomy changes right 6th rib. Old healed fracture right 7th anterolateral rib. Status post right pneumonectomy with extensive pleural calcification. Bilateral ureteral stents. No acute bony abnormality. Signed by João Crystal MD 04/17/2017 07:48 P
--- NOTE | 2017-04-17 22:00 | ECGEPIP ---
Stationary ECG Study [facility] Test Date: 2017-04-17 Pat Name: TARUN OSORIO Department: Room: [place] [address] Gender: M [employer]: : [id number] Requested By: KADE Pagan Order Number: [id number] Reading MD: Agustin Huddleston Measurements Intervals [place] Rate: 104 P: AL: 0 QRS: -82 QRSD: 144 T: 20 QT: 367 QTc: 483 Interpretive Statements Atrial fibrillation with moderate ventricular response Left anterior fascicular block Right bundle branch block Consider prior IWMI; inferior Q waves may relate to LAFB No significant change when compared to prior tracing of 04/13/2017 Electronically Signed On 04-17-2017 22:00:14 EST by Agustin Huddleston
[2017-04-18] MEDS: IPRATROPIUM 0.5MG/ALBUTEROL 2.5MG INH SOL UD 3ML (DUONEB)(J7620) NEB SCH ×4 (01:47→19:59)
[2017-04-18 06:00] VITALS: BP 115/67
[2017-04-18 06:17] LABS: MEAN CORPUSCULAR HEMOGLOBIN 32.4 pg (27.0-33.0); MEAN CORPUSCULAR HGB CONC 32.8 g/dl (32.0-36.5); MEAN CORPUSCULAR VOLUME 98.8 fl (80.0-96.0); PLATELET COUNT, AUTOMATED 342 10^3/uL (150-450); RED CELL DISTRIBUTION WIDTH 13.8 % (11.5-14.5); WHITE BLOOD COUNT 15.4 10^3/uL (4.0-10.0)
[2017-04-18 06:40] LABS: ALBUMIN 2.4 GM/DL (3.2-5.2); ALBUMIN/GLOBULIN RATIO 0.65 (1.00-1.93); BILIRUBIN,TOTAL 0.4 MG/DL (0.2-1.0); CREATININE FOR GFR 3.88 MG/DL (0.70-1.30); GLOMERULAR FILTRATION RATE 15.7 (>35); MAGNESIUM LEVEL 2.4 MG/DL (1.8-2.4); POTASSIUM SERUM 3.8 MEQ/L (3.5-5.1); TOTAL PROTEIN 6.1 GM/DL (6.4-8.2)
[2017-04-18] MEDS: FERROUS GLUCONATE 324 MG TAB PO SCH ×2 (08:48→20:08)
[2017-04-18] MEDS: VITAMIN B COMPLEX/VIT C CAP PO SCH (08:48)
[2017-04-18] MEDS: FLUCONAZOLE 100 MG TAB PO SCH (08:48)
[2017-04-18] MEDS: VITAMIN D 1,000 INTERNATIONAL UNITS TABLET PO SCH (08:49)
[2017-04-18] MEDS: LACTOBACILLUS ACIDOPHILUS CAP (BACID) PO SCH ×2 (08:49→20:08)
[2017-04-18] MEDS: SENOKOT S TAB PO SCH ×2 (08:49→20:08)
[2017-04-18] MEDS: HEPARIN SOD (PORCINE) 5000 UNITS/ML VIAL SQ SCH ×2 (08:57→20:08)
[2017-04-18] MEDS: KETOCONAZOLE 2% CREAM TOP SCH ×2 (08:58→20:12)
[2017-04-18] MEDS ORDERED: LIDOCAINE 1% SDV 5 ML VIAL SQ ONE (11:00)
[2017-04-18] MEDS ORDERED: HEPARIN 1,000 UNITS/ML 10ML VIAL (FOR RADIOLOGY& DIALYSIS ONLY) IV ONE (11:00)
[2017-04-18] MEDS: PIPERACILLIN/TAZOBACTAM SOD 2.25 GM in APPROPRIATE DILUENT 1 EA IV SCH ×2 (11:07→23:27)
--- NOTE | 2017-04-18 11:21 | IPNPDOC ---
Subjective Date Seen The patient was seen on 04/18/17. Subjective Chief Complaint/HPI The patient is a 87-year-old male admitted with a reason for visit of Fall Uti. General: Reports: Fatigue, Normal Appetite, Denies: Chills, Night Sweats Constitutional: Denies: Chills Skin: Denies: Rash, Lesions, Jaundice Pulmonary: Denies: Dyspnea, Cough, Pleuritic Chest Pain Cardiovascular: Denies: Chest Pain Gastrointestinal: Denies: Nausea, Vomiting, Abdominal Pain Musculoskeletal: Reports: Back Pain (continues today in right medial scapula region, better from one day ago) Neurological: Reports: Weakness, Denies: Change in speech, Confusion Psych: Reports: Mood Normal Objective Physical Examination General Exam: Positive: Alert, Cooperative, No Acute Distress, Other (in hemodialysis) Eye Exam: Positive: Conjunctiva & lids normal, EOMI, Negative: Sclera icteric ENT Exam: Positive: Atraumatic, Mucous membr. moist/pink Neck Exam: Negative: JVD Chest Exam: Positive: Clear to auscultation, Other (Diminised breath sounds in the RUL, chronic) Heart Exam: Positive: Rate Normal, Normal S1, Normal S2 Abdomen Exam: Positive: Soft, Negative: Tenderness Extremity Exam: Positive: Other (tenderness to palpitation of right scapula medial superior by T4-5, small abrasion noted on right scapula, scant amount of serous drainage on bandage), Negative: Edema, Tenderness, Swelling Neuro Exam: Negative: Normal Speech (garbled, this is not new) Psych Exam: Positive: Oriented x 3 Assessment /Plan Assessment This is an 87-year-old male who was admitted for reason of recurrent falls. 1. Leukocytosis -The patient's white count has come down today to 15.4 from 17.1 one day ago -UA and urine culture pending -Initial urine culture from April 09, 2017 showed positive Pseudomonas aeruginosa -Patient was discontinued from vancomycin one day ago, continue with Zosyn therapy, antifungal therapy has been added as well -No focal source of infection aside from UTI, a she continues to be symptomatic and denies increase in frequency, blood in urine or pain with urination -The patient continues to remain afebrile -Repeat blood cultures from April 09, 2017 negative as well as repeat blood cultures from 04/14/17 -Abdominal pelvic CT scan demonstrated no source for infection, mild bilateral hydronephrosis with bilateral nephrostomy tubes. In good position with no adenopathy free air or free fluid. No evidence of acute findings -Continue to follow ESR and CRP 2. History of recurrent UTI -Patient does have bilateral ureteral stents which are exchanged every 2-3 months secondary to bilateral hydronephrosis from underlying prostate cancer -Stents were last exchanged 04/05/2017 -Patient is on Zosyn and antifungal -We'll repeat UA and urine culture 3. Recurrent falls likely secondary to deconditioning -PT/OT has been working the patient for functional optimization, they will continue to work with him today. One day ago he was noted to continue to have episodes of stumbling backwards while trying to ambulate. We will follow their recommendations. PFS is consulted for possible placement. 4. Back pain -The patient continues to complain of some discomfort in the right superior medial right scapula around T4 -He did have a rib series which did not demonstrate any fracture or concerns for bony metastases -He does have a history of lung cancer and is status post right pneumonectomy -He had his whole body bone scan done today to rule out possibility of metastasis to bone, awaiting results -Continue pain control with Tylenol, further recommendations when bone scan results becomes available 5. COPD -Stable Chest x-rays have been negative so far for any acute processes We will continue regimens as ordered 6. End-stage renal disease -Nephrology on board for patient's regularly scheduled dialysis sessions, he will have dialysis today. Greatly appreciate their help. 7. Sinus tachycardia -Metoprolol has been scheduled for the patient, seems at times when he ambulates his heart rate is going to 150s to 160s with resolution when he is resting, monitor has consistently shown sinus tachycardia during these events, cannot appreciate underlying arrhythmia such as A. fib. -The patient is a fall risk, however he may benefit from anticoagulation. -Patient continues to remain asymptomatic with no chest pain or heart palpitations during these events, no shortness of breath or diaphoresis reported. 8. History of lung cancer -Patient is status post right pneumonectomy 9. History of colon cancer -Patient status post hemicolectomy 10. History of prostate cancer -Stable 11. DVT prophylaxis -Will continue with heparin Plan/VTE VTE Prophylaxis Ordered?: Yes (heparin, HARSHA/SCD) VS, I&O, 24H, Fishbone Vital Signs/I&O Vital Signs Date Time Temp Pulse Resp B/P (MAP) Pulse Ox O2 Delivery O2 Flow Rate FiO2 04/18/17 06:00 96.8 89 18 115/67 (83) 97 Room Air Laboratory Data 24H LABS Laboratory Tests 2 04/18/17 05:59: Nucleated Red Blood Cells % (auto) 0.0, Anion Gap 6L, Glomerular Filtration Rate 15.7L, Blood Urea Nitrogen 52H, Creatinine 3.88H, Sodium Level 136, Potassium Level 3.8, Chloride Level 99, Carbon Dioxide Level 31, Calcium Level 9.0, Aspartate Amino Transf (AST/SGOT) 14, Alanine Aminotransferase (ALT/SGPT) 12, Alkaline Phosphatase 57, Total Bilirubin 0.4, Total Protein 6.1L, Albumin 2.4L, Magnesium Level 2.4, Albumin/Globulin Ratio 0.65L CBC/BMP Laboratory Tests 04/18/17 05:59 Red Blood Count 3.36 L, Mean Corpuscular Volume 98.8 H, Mean Corpuscular Hemoglobin 32.4, Mean Corpuscular Hemoglobin Concent 32.8, Red Cell Distribution Width 13.8, Calcium Level 9.0, Aspartate Amino Transf (AST/SGOT) 14 , Alanine Aminotransferase (ALT/SGPT) 12, Alkaline Phosphatase 57, Total Bilirubin 0.4, Total Protein 6.1 L, Albumin 2.4 L Microbiology Microbiology 04/14/17 Blood Culture - Preliminary, Resulted No Growth after 72 hours. All specime... 04/14/17 Blood Culture - Preliminary, Resulted No Growth after 72 hours. All specime... 04/09/17 Blood Culture - Final, Complete NO GROWTH AFTER 5 DAYS 04/09/17 Blood Culture - Final, Complete NO GROWTH AFTER 5 DAYS 04/17/17 Stool Occult Blood (TRINITY) - Final, Complete 04/17/17 Gastrointestinal Tract Panel (PCR) - Final, Complete 04/14/17 MRSA Screen - Final, Complete 04/12/17 Gram Stain - Final, Complete 04/12/17 Sputum Culture - Final, Complete 04/10/17 Gram Stain - Final, Complete 04/10/17 Sputum Culture - Final, Complete 04/09/17 Urine Culture - Final, Complete Pseudomonas Aeruginosa GME ATTESTATION GME ATTESTATION My faculty preceptor for this patient encounter was physically present during the encounter and was fully available. All aspects of the patient interview, examination, medical decision making process, and medical care plan development were reviewed and approved by the faculty preceptor. The faculty preceptor is aware and concurs with the plan as stated in the body of this note and will attest to such by his/her cosignature. STEVEN CARSON DO Apr 18, 2017 11:21
--- NOTE | 2017-04-18 12:27 | REP ---
WHOLE BODY BONE SCAN: Following the intravenous administration of 22 mCi of technetium 99m MDP, patient's whole body is imaged in the anterior and posterior projections with additional oblique images of the thoracic and pelvic regions performed as well as lateral views of the calvarium and knees. There is activity in the right antecubital fossa at the patient's injection site with linear activity which appears to be on the skin of the adjacent right chest wall representing skin contamination. Focus of increased uptake is seen in the anterior end of the left second rib. This could be due to a fracture or costochondritis. On the recent CT of 04/14/2017, no definite bone lesion is seen at this location. There is arthritic uptake in the wrists as well as in the left knee. There is mild arthritic uptake in the thoracolumbar spine. Photopenic areas in the proximal femurs are compatible with bilateral metallic hip prostheses. There is no other compelling evidence of scintigraphically for osseous metastases. Photopenic right knee prosthesis is also noted. IMPRESSION: Focus of increased uptake in the anterior end of the left second rib may be due to occult fracture or costochondritis. Metastatic lesion is not totally excluded but no lesion is seen on the CT scan from 04/14/2017. There is no other compelling scintigraphic evidence of osseous metastases. Signed by Chele Lock MD 04/18/2017 01:54 P
[2017-04-18 16:15] VITALS: BP 157/72
[2017-04-18] MEDS: METOPROLOL TART 25 MG TABLET PO SCH ×2 (16:22→20:09)
[2017-04-18 22:00] VITALS: BP 142/67
[2017-04-19] MEDS: IPRATROPIUM 0.5MG/ALBUTEROL 2.5MG INH SOL UD 3ML (DUONEB)(J7620) NEB SCH ×4 (01:26→20:27)
[2017-04-19 06:00] VITALS: BP 142/67
[2017-04-19 06:34] LABS: MEAN CORPUSCULAR HEMOGLOBIN 32.2 pg (27.0-33.0); MEAN CORPUSCULAR HGB CONC 32.7 g/dl (32.0-36.5); MEAN CORPUSCULAR VOLUME 98.5 fl (80.0-96.0); PLATELET COUNT, AUTOMATED 331 10^3/uL (150-450); RED CELL DISTRIBUTION WIDTH 13.6 % (11.5-14.5); WHITE BLOOD COUNT 17.2 10^3/uL (4.0-10.0)
[2017-04-19 06:47] LABS: ADD MANUAL DIFFER YES; DIFF SLIDE NUMBER 73; POS COUNT POS FLAG; POSITIVE MORPH POS FLAG
[2017-04-19 06:49] LABS: REASON FOR REVIEW COMPREHENSIVE REVIEW
[2017-04-19 07:10] LABS: ALBUMIN 2.7 GM/DL (3.2-5.2); ALBUMIN/GLOBULIN RATIO 0.84 (1.00-1.93); BILIRUBIN,TOTAL 0.3 MG/DL (0.2-1.0); CALCIUM LEVEL 9.3 MG/DL (8.8-10.2); CREATININE FOR GFR 2.5 MG/DL (0.70-1.30); MAGNESIUM LEVEL 2.3 MG/DL (1.8-2.4); POTASSIUM SERUM 4.3 MEQ/L (3.5-5.1); TOTAL PROTEIN 5.9 GM/DL (6.4-8.2)
[2017-04-19 07:13] LABS: PERCENT SATURATION 38.6 % (19.7-50.0)
[2017-04-19 07:18] LABS: PLATELET CLUMPS SMALL AMT
[2017-04-19] MEDS: VITAMIN B COMPLEX/VIT C CAP PO SCH (08:11)
[2017-04-19] MEDS: VITAMIN D 1,000 INTERNATIONAL UNITS TABLET PO SCH (08:11)
[2017-04-19] MEDS: SENOKOT S TAB PO SCH ×2 (08:11→21:08)
[2017-04-19] MEDS: LACTOBACILLUS ACIDOPHILUS CAP (BACID) PO SCH ×2 (08:11→21:08)
[2017-04-19] MEDS: METOPROLOL TART 25 MG TABLET PO SCH ×2 (08:12→21:09)
[2017-04-19] MEDS: FERROUS GLUCONATE 324 MG TAB PO SCH ×2 (08:12→21:09)
[2017-04-19] MEDS: FLUCONAZOLE 100 MG TAB PO SCH (08:12)
[2017-04-19] MEDS: KETOCONAZOLE 2% CREAM TOP SCH ×2 (08:12→21:00)
[2017-04-19] MEDS: HEPARIN SOD (PORCINE) 5000 UNITS/ML VIAL SQ SCH ×2 (08:12→21:08)
--- NOTE | 2017-04-19 08:54 | IPN ---
DATE OF SERVICE: 04/18/2017 SUBJECTIVE: The patient was seen and examined at the bedside during hemodialysis procedure. Patient was tolerating the hemodialysis procedure well. He denies any active complaints. REVIEW OF SYSTEMS: The patient denies any fever, chills, rigors, headache, chest pain, shortness of breath, pain in abdomen, constipation, or diarrhea. Rest of review of systems is negative. OBJECTIVE: VITAL SIGNS: Temperature is 97.2 degrees Fahrenheit. Blood pressure is 146/72. Pulse is 80. Respiratory rate of 18. Saturating 95% on room air. INTAKE AND OUTPUT: Urine output is not recorded well. Weight in the bed scale is 64.6 kg. PHYSICAL EXAMINATION: GENERAL: The patient is awake, alert, oriented times three, laying in bed in no apparent distress. HEAD AND NECK EXAMINATION: Extraocular muscles intact. Pupils equally round and reactive to light. Mucous membranes are moist. Neck is supple. There is no jugular venous distention (JVD). CARDIOVASCULAR: S1, S2, irregularly irregular heart rate. No murmur, rub, and gallop. RESPIRATORY: Chest is clear to auscultation on left side. The patient is status post right pneumonectomy. ABDOMEN: Soft. Positive bowel sounds. Nontender. No ascites. No organomegaly. MUSCULOSKELETAL: No clubbing or cyanosis. Pulses are 2+. AV ACCESS: The patient has a left forearm AV fistula being used for dialysis. CENTRAL NERVOUS SYSTEM (HEAD PORTER BAGGAGE): No focal neurological deficit. Power is 5/5 in all extremities. LABORATORY REVIEW: CBC showed a WBC 15.4, hemoglobin is 10.9, platelets are 342. Peak urinalysis done today showed turbid with 3+ leukocyte esterase, too much to count WBCs. BMP showed sodium 136, potassium is 3.8, chloride 99, bicarbonate 31, BUN 52, creatinine is 3.8, albumin 2.4. MICROBIOLOGY: A repeat urine culture was sent today which is pending. IMAGING: A nuclear medicine bone scan was done which showed increased focus of uptake in the anterior end of the left second rib, it may be due to occult fracture or costochondritis. Metastatic lesion is not totally excluded. There is no other compelling scintigraphic evidence of osseous metastases. CURRENT INPATIENT MEDICATIONS: The patient's medications are all reviewed by me. He continues to be on intravenous (IV) Zosyn. Vancomycin was stopped. He was started on fluconazole yesterday as well. There is no other change in the medications today as compared with yesterday. ASSESSMENT: 87-year-old male with past medical history of end-stage renal disease on hemodialysis, history of right pneumonectomy in the past, bilateral ureteral stents which are changed every 3 months, history of frequent urinary tract infections (UTIs) in the past, admitted this time because of weakness and frequent falls. The patient is being treated for Pseudomonas UTI at this time. PLAN: 1. End-stage renal disease. The patient is being dialyzed according to his schedule. Patient is losing weight and tends to be hypotensive. Interpretation goal will be only 500 mL. 2. Pseudomonas urinary tract infection. 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 He is currently on IV Zosyn. He still has leukocytosis. Antifungal was added yesterday. White cell count is slightly better today as compared with yesterday. 3. Frequent falls. Patient has been getting weaker. He has been losing weight. He is deconditioned. He needs physical therapy and occupational therapy. He had history of lung cancer status post a right pneumonectomy. History of colon cancer status post hemicolectomy and history of prostate cancer in the past. Patient had a bone scan done today which shows some increased uptake in the ribs. Further work-up is as per primary team. [facility]
[2017-04-19] MEDS ORDERED: PANTOPRAZOLE 20 MG TAB PO SCH (09:00)
--- NOTE | 2017-04-19 10:09 | IPNPDOC ---
Subjective Date Seen The patient was seen on 04/19/17. Subjective Chief Complaint/HPI The patient is a 87-year-old male admitted with a reason for visit of Fall Uti. General: Reports: Fatigue, Malaise, Denies: Chills, Night Sweats Constitutional: Reports: Malaise, Weakness, Fatigue, Weight Loss, Denies: Chills, Fever, Night Sweats Eyes: Denies: Pain, Vision change ENT: Denies: Head Aches, Ear Pain Skin: Denies: Rash, Lesions Pulmonary: Denies: Dyspnea, Cough Cardiovascular: Denies: Chest Pain, Palpitations, Orthopnea, Edema, Lt Headedness Gastrointestinal: Denies: Nausea, Vomiting, Abdominal Pain, Diarrhea, Constipation, Melena, Hematochezia Genitourinary: Denies: Dysuria Hematologic: Denies: Bruising Endocrine: Denies: Polydipsia Neurological: Reports: Weakness Psych: Reports: Mood Normal Objective Physical Examination General Exam: Positive: Alert, Cooperative, No Acute Distress Eye Exam: Positive: Conjunctiva & lids normal, EOMI, Negative: Sclera icteric ENT Exam: Positive: Atraumatic, Mucous membr. moist/pink Neck Exam: Negative: JVD Chest Exam: Positive: Clear to auscultation, Other (Diminised breath sounds in the RUL, chronic) Heart Exam: Positive: Rate Normal, Normal S1, Normal S2 Abdomen Exam: Positive: Soft, Negative: Tenderness Extremity Exam: Positive: Other (tenderness to palpitation of right scapula medial superior by T4-5, small abrasion is again noted on right scapula w/o drainage), Negative: Edema, Tenderness, Swelling Neuro Exam: Negative: Normal Speech (garbled, this is not new) Psych Exam: Positive: Oriented x 3 Assessment /Plan Assessment This is an 87-year-old male who was admitted for reason of recurrent falls. 1. Leukocytosis -The patient's white count has increased today to 17.2 from 15.4 one day ago -Repeat u/a does show + leuk. esterase and TNTC WBC, pt may be colonized, ucx pending. C/w Zosyn therapy for now. -Initial urine culture from April 09, 2017 showed positive Pseudomonas aeruginosa -Patient was discontinued from vancomycin two days ago, continue with Zosyn therapy, antifungal therapy has been added one day ago by nephrology -No focal source of infection aside from UTI, she continues to be symptomatic and denies increase in frequency, blood in urine or pain with urination -The patient continues to remain afebrile -Repeat blood cultures from April 09, 2017 negative as well as repeat blood cultures from 04/14/17 -Abdominal pelvic CT scan demonstrated no source for infection, mild bilateral hydronephrosis with bilateral nephrostomy tubes. In good position with no adenopathy free air or free fluid. No evidence of acute findings -Continue to follow ESR and CRP, elevated 2. History of recurrent UTI -Patient does have bilateral ureteral stents which are exchanged every 2-3 months secondary to bilateral hydronephrosis from underlying prostate cancer -Stents were last exchanged 04/05/2017 -Patient is on Zosyn and antifungal -Ucx pending, u/a showed positive leuk esterase and wbc, pt may be colonized 3. Recurrent falls likely secondary to deconditioning -PT/OT has been working the patient for functional optimization, they will continue to work with him today. -He continues to have some episodes of stumbling backwards while trying to ambulate. We will follow their recommendations. PFS is consulted for possible placement. 4. Back pain -The patient continues to complain of some discomfort in the right superior medial right scapula around T4, states it has not really gotten better or worse -He did have a rib series which did not demonstrate any fracture or concerns for bony metastases -He does have a history of lung cancer and is status post right pneumonectomy -He had his whole body bone scan which revealed a focus of increased uptake in the anterior end of the left second rib possibly due to occult fracture or costochondritis. Metastatic lesion is not totally excluded but no lesion seen on CT from 04/14/2017. No other compelling scintigraphic evidence of osseous metastases. -May consider PET scan for further evaluation for bone pain given Bone scan results -Continue pain control with Tylenol 5. COPD -Stable Chest x-rays have been negative so far for any acute processes We will continue regimens as ordered 6. End-stage renal disease -Nephrology on board for patient's regularly scheduled dialysis sessions, dialyzed one day ago according to his dialysis schedule. Greatly appreciate their help. 7. Fecal occult blood positive -Per nursing staff, pt has not had blood in bowel movements -Iron studies not consistent with iron def. anemia, low TIBC and increased Ferritin - Pt. on rectal exam did not have oliver red blood per rectum, no visualized external hemorrhoids, sent additional occult blood to lab, pending results. H/H stable. 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 -Have spoken to GI doctor dairy nutrition specialist who recommended outpatient follow up for his FOBT positive and that it is unlikely that elevated WBC is from malignancy and that the p.t had low grade colon cancer in 1998 that was completely resected, CT ab/pelvis did not show signs concerning for malignancy thus re-occurrence of cancer is unlikely. Even so he would not likely be a surgical candidate, he has no overt bleeding and h/h is stable currently. If pt is still here Sunday and we are still concerned for GI bleed, it was recommenced to re-contact GI for further investigation and possible scope. Otherwise (for all the aforementioned reasons) this could be addressed outpt follow up. -We have started protonix for pt complaint of heartburn, we will continue to monitor for h/h and blood per rectum. 8. Sinus tachycardia -Heart rate seems to be controlled after initiation of metoprolol -On Apr 17, 2017 when the pt ambulated, his heart rate would go to 150s to 160s with resolution upon rest, the monitor had consistently shown sinus tachycardia during these events, no underlying arrhythmia such as A. fib. was appreciated, the pt was not diaphoretic, sob, nor did he have CP or palpitations during the events of tachycardia -The patient is a fall risk, however he may benefit from anticoagulation but this would be with very cautious decision making. -Patient continues to remain asymptomatic today, heart rate is controlled with metoprolol, will continue, pt denies chest pain or heart palpitations, no shortness of breath or diaphoresis reported. 9. History of lung cancer -Patient is status post right pneumonectomy 10. History of colon cancer -Patient status post hemicolectomy in 1998 11. History of prostate cancer -Stable 12. DVT prophylaxis -Will continue with heparin Plan/VTE VTE Prophylaxis Ordered?: Yes (heparin, HARSHA/SCD) VS, I&O, 24H, Fishbone Vital Signs/I&O Vital Signs Date Time Temp Pulse Resp B/P (MAP) Pulse Ox O2 Delivery O2 Flow Rate FiO2 11/23/17 08:12 88 146/72 04/19/17 06:00 97.5 18 98 Room Air Laboratory Data 24H LABS Laboratory Tests 2 04/18/17 17:51: Urine Appearance TURBIDH, Urine Color YELLOW, Urine pH 7.0, Urine Specific [place] 1.010, Urine Protein 2+H, Urine Glucose (UA) NEGATIVE, Urine Ketones NEGATIVE, Urine Urobilinogen 0.2, Urine Bilirubin NEGATIVE, Urine Leukocyte Esterase 3+H, Urine Blood 2+H, Urine Nitrite NEGATIVE, Urine WBC (Auto) TNTCH, Urine RBC (Auto) 123H, Urine Hyaline Casts (Auto) 0, Urine Bacteria (Auto) 1+H, Urine Squamous Epithelial Cells 0, Urine Sperm (Auto) 04/19/17 06:23: Immature Granulocyte % (Auto) , Nucleated Red Blood Cells % (auto) 0.0, Neutrophils 86H, Lymphocytes (Manual) 7L, Monocytes (Manual) 5, Metamyelocytes 2H, Differential Slide Review Report, Differential Pathologist's Review COMPREHENSIVE REVIEW, Platelet Estimate INCREASED, Clumped Platelets SMALL AMT, Macrocytosis 1+, Peripheral Blood Smear Path Consult PERIPHERAL SMEAR, Anion Gap 7L, Glomerular Filtration Rate 26.0L, Blood Urea Nitrogen 26H, Creatinine 2.50H, Sodium Level 139, Potassium Level 4.3, Chloride Level 101, Carbon Dioxide Level 31, Calcium Level 9.3, Aspartate Amino Transf (AST/SGOT) 17, Alanine Aminotransferase (ALT/SGPT) 14, Alkaline Phosphatase 62, Total Bilirubin 0.3, Total Protein 5.9L, Albumin 2.7L, Magnesium Level 2.3, Iron Level 76, Total Iron Binding Capacity 197L, Transferrin % Saturation 38.6, Ferritin 1293H, Lactate Dehydrogenase 154, C-Reactive Protein, Quantitative 5.46H, Albumin/Globulin Ratio 0.84L CBC/BMP Laboratory Tests 04/19/17 06:23 Red Blood Count 3.98 L, Mean Corpuscular Volume 98.5 H, Mean Corpuscular Hemoglobin 32.2, Mean Corpuscular Hemoglobin Concent 32.7, Red Cell Distribution Width 13.6, Calcium Level 9.3, Aspartate Amino Transf (AST/SGOT) 17 , Alanine Aminotransferase (ALT/SGPT) 14, Alkaline Phosphatase 62, Total Bilirubin 0.3, Total Protein 5.9 L, Albumin 2.7 L Microbiology Microbiology 04/14/17 Blood Culture - Final, Complete NO GROWTH AFTER 5 DAYS 04/14/17 Blood Culture - Final, Complete NO GROWTH AFTER 5 DAYS 04/09/17 Blood Culture - Final, Complete NO GROWTH AFTER 5 DAYS 04/09/17 Blood Culture - Final, Complete NO GROWTH AFTER 5 DAYS 04/17/17 Stool Occult Blood (TRINITY) - Final, Complete 04/17/17 Gastrointestinal Tract Panel (PCR) - Final, Complete 04/14/17 MRSA Screen - Final, Complete 04/12/17 Gram Stain - Final, Complete 04/12/17 Sputum Culture - Final, Complete 04/10/17 Gram Stain - Final, Complete 04/10/17 Sputum Culture - Final, Complete 04/18/17 Urine Culture, Received Pending 04/09/17 Urine Culture - Final, Complete Pseudomonas Aeruginosa GME ATTESTATION GME ATTESTATION My faculty preceptor for this patient encounter was physically present during the encounter and was fully available. All aspects of the patient interview, examination, medical decision making process, and medical care plan development were reviewed and approved by the faculty preceptor. The faculty preceptor is aware and concurs with the plan as stated in the body of this note and will attest to such by his/her cosignature. STEVEN CARSON DO Apr 19, 2017 10:09
[2017-04-19] MEDS: PIPERACILLIN/TAZOBACTAM SOD 2.25 GM in APPROPRIATE DILUENT 1 EA IV SCH ×2 (11:41→22:19)
[2017-04-19 14:00] VITALS: BP 127/61
[2017-04-19 16:00] VITALS: BP 127/61
[2017-04-19 20:45] VITALS: BP 124/58
[2017-04-20] MEDS: ONDANSETRON 4MG/2ML VIAL (J2405) IV PRN (00:26)
[2017-04-20] MEDS: IPRATROPIUM 0.5MG/ALBUTEROL 2.5MG INH SOL UD 3ML (DUONEB)(J7620) NEB SCH ×4 (01:23→20:05)
[2017-04-20] MEDS: PANTOPRAZOLE 20 MG TAB PO SCH (05:29)
[2017-04-20] MEDS: METOPROLOL TART 25 MG TABLET PO SCH ×2 (05:29→20:17)
[2017-04-20 05:30] VITALS: BP 135/88
[2017-04-20] MEDS: HEPARIN SOD (PORCINE) 5000 UNITS/ML VIAL SQ SCH ×2 (05:30→20:18)
[2017-04-20] MEDS: VITAMIN D 1,000 INTERNATIONAL UNITS TABLET PO SCH (05:30)
[2017-04-20] MEDS: FERROUS GLUCONATE 324 MG TAB PO SCH ×2 (05:30→20:18)
[2017-04-20] MEDS: LACTOBACILLUS ACIDOPHILUS CAP (BACID) PO SCH ×2 (05:30→20:18)
[2017-04-20] MEDS: VITAMIN B COMPLEX/VIT C CAP PO SCH (05:30)
[2017-04-20] MEDS: SENOKOT S TAB PO SCH ×2 (05:31→20:18)
[2017-04-20] MEDS: KETOCONAZOLE 2% CREAM TOP SCH ×2 (05:31→20:18)
[2017-04-20] MEDS: FLUCONAZOLE 100 MG TAB PO SCH (05:31)
[2017-04-20 06:52] LABS: MEAN CORPUSCULAR HEMOGLOBIN 32.8 pg (27.0-33.0); MEAN CORPUSCULAR HGB CONC 32.7 g/dl (32.0-36.5); MEAN CORPUSCULAR VOLUME 100.3 fl (80.0-96.0); PLATELET COUNT, AUTOMATED 415 10^3/uL (150-450); RED CELL DISTRIBUTION WIDTH 13.8 % (11.5-14.5); WHITE BLOOD COUNT 23.8 10^3/uL (4.0-10.0)
[2017-04-20 07:17] LABS: ALBUMIN 2.8 GM/DL (3.2-5.2); ALBUMIN/GLOBULIN RATIO 0.85 (1.00-1.93); BILIRUBIN,TOTAL 0.3 MG/DL (0.2-1.0); CALCIUM LEVEL 9.1 MG/DL (8.8-10.2); CREATININE FOR GFR 3.8 MG/DL (0.70-1.30); MAGNESIUM LEVEL 2.3 MG/DL (1.8-2.4); POTASSIUM SERUM 4.4 MEQ/L (3.5-5.1); TOTAL PROTEIN 6.1 GM/DL (6.4-8.2)
--- NOTE | 2017-04-20 10:33 | IPN ---
DATE: 04/19/2017 Mr. Combs is seen this morning on his bedside. He remains very weak and vague. He was admitted with frequent falls and possible urinary tract infection. He remains quite weak and still not able to walk well. He denies any fever, chills, cough or hemoptysis. He denies any abdominal pain, nausea or vomiting. He has no dysuria or hematuria. Review of systems is otherwise unremarkable. PHYSICAL EXAMINATION: Temperature 97.5 degrees Fahrenheit, heart rate 88 per minute and respiratory rate 18 per minute. Blood pressure 146/72 mmHg and oxygen saturation 98% on room air. Head is atraumatic. Pupils are equal and reactive to light and sclera is anicteric. Neck is supple and without JVD or thyroid enlargement. Ears, nose and throat are unremarkable. Heart exam with regular S1 and S2. There is no pericardial friction rub. Lungs sound clear to auscultation bilaterally. Abdomen is soft and nontender and without palpable organomegaly. Bowel sounds are normal. Extremities have no cyanosis or clubbing. Left forearm AV fistula is patent. Neurologically he is awake, very weak, but without a focal neurological deficit. Skin has no rash or ulcers. Today's labs show WBC count 17.2, hemoglobin 12.8 and hematocrit 39.2. Sodium 139 and potassium 4.3. BUN 26 and creatinine 2.5. Iron level is 76. Urinalysis from yesterday showed a turbid appearance with too numerous to count WBCs and 123 RBCs. PROBLEMS: 1. End-stage renal disease. The patient was dialyzed yesterday and will plan to perform next hemodialysis on Sunday. At present, his volume status is well compensated and electrolytes are within normal range. 2. Generalized weakness and deconditioning. The patient will require ongoing physical therapy and rehab. He is likely to require snf placement for the halfway. 3. Urinary tract infection. The patient is on Zosyn 2.25 grams every 12 hours, which will be continued. Urine culture is still pending. 4. Anemia. His anemia is a very mild and stable. No intervention is indicated at this point. 5. Leukocytosis, etiology remains uncertain. He has multiple imaging studies done including abdominal and pelvic CAT scan, chest CT scan and a nuclear medicine bone scan. There is no focus of infection identified. We will continue with broad-spectrum antibiotic.
[2017-04-20] MEDS: PIPERACILLIN/TAZOBACTAM SOD 2.25 GM in APPROPRIATE DILUENT 1 EA IV SCH ×2 (10:57→22:14)
--- NOTE | 2017-04-20 11:34 | IPNPDOC ---
Subjective Date Seen The patient was seen on 04/20/17. Subjective Chief Complaint/HPI The patient is a 87-year-old male admitted with a reason for visit of Fall Uti. General: Reports: Malaise, Denies: Chills, Night Sweats, Fatigue Constitutional: Denies: Chills Eyes: Denies: Pain ENT: Denies: Head Aches Skin: Denies: Rash, Lesions Pulmonary: Denies: Dyspnea, Cough, Pleuritic Chest Pain Cardiovascular: Denies: Chest Pain, Palpitations Gastrointestinal: Denies: Nausea, Vomiting Genitourinary: Denies: Dysuria, Frequency, Incontinence, Hematuria, Retention Neurological: Reports: Weakness Psych: Reports: Mood Normal Objective Physical Examination General Exam: Positive: Alert, Cooperative, No Acute Distress Eye Exam: Positive: Conjunctiva & lids normal, EOMI, Negative: Sclera icteric ENT Exam: Positive: Atraumatic, Mucous membr. moist/pink Neck Exam: Negative: JVD Chest Exam: Positive: Clear to auscultation, Other (Diminised breath sounds in the RUL, chronic) Heart Exam: Positive: Rate Normal, Normal S1, Normal S2 Abdomen Exam: Positive: Soft, Negative: Tenderness Extremity Exam: Positive: Other (back pain is no longer present on palpitation ), Negative: Edema, Tenderness, Swelling Neuro Exam: Negative: Normal Speech (remains a bit garbled, this is not new) Psych Exam: Positive: Oriented x 3 Assessment /Plan Assessment This is an 87-year-old male who was admitted for reason of recurrent falls. 1. Leukocytosis -The patient's white count has increased today to 23.8 from 17.2 from one day ago -Repeat u/a does show + leuk. esterase and TNTC WBC, pt may be colonized, ucx pending.urine cx + for yeast like organism. C/w fluconazole and Zosyn therapy for now. -Initial urine culture from April 09, 2017 showed positive Pseudomonas aeruginosa -Patient was discontinued from vancomycin three days ago, continue with Zosyn therapy and fluconazole -No focal source of infection aside from UTI, he continues to be asymptomatic and denies increase in frequency, blood in urine or pain with urination -The patient continues to remain afebrile -Repeat blood cultures from April 09, 2017 negative as well as repeat blood cultures from 04/14/17 -Abdominal pelvic CT scan demonstrated no source for infection, mild bilateral hydronephrosis with bilateral nephrostomy tubes. In good position with no adenopathy free air or free fluid. No evidence of acute findings, will repeat abdomen/pelvic CT as WBC has increased to evaluate for possible source of infection vs ischemia to gut -Continue to follow ESR and CRP, elevated CRP one day ago 2. History of recurrent UTI -Patient does have bilateral ureteral stents which are exchanged every 2-3 months secondary to bilateral hydronephrosis from underlying prostate cancer -Stents were last exchanged 04/05/2017 -Patient is on Zosyn and antifungal -Ucx + yeast like organism, u/a showed positive leuk esterase and wbc, pt may be colonized 3. Recurrent falls likely secondary to deconditioning -PT/OT has been working the patient for functional optimization, they will continue to work with him today. -He continues to have some episodes of stumbling backwards while trying to ambulate. We will follow their recommendations. PFS is consulted for possible placement. 4. Back pain -The patient states his back pain is resolved for the most part now -He did have a rib series which did not demonstrate any fracture or concerns for bony metastases -He does have a history of lung cancer and is status post right pneumonectomy -He had his whole body bone scan which revealed a focus of increased uptake in the anterior end of the left second rib possibly due to occult fracture or costochondritis. Metastatic lesion is not totally excluded but no lesion seen on CT from 04/14/2017. No other compelling scintigraphic evidence of osseous metastases. -May consider PET scan for further evaluation for bone pain given Bone scan results -Continue pain control with Tylenol 5. COPD -Stable Chest x-rays have been negative so far for any acute processes We will continue regimens as ordered 6. End-stage renal disease -Nephrology on board for patient's regularly scheduled dialysis sessions, dialyzed one day ago according to his dialysis schedule, will have dialysis again tomorrow. Greatly appreciate their help. 7. Fecal occult blood positive -h/h stable -Per nursing staff, pt has not had blood in bowel movements. -Iron studies not consistent with iron def. anemia, low TIBC and increased Ferritin - Pt. on rectal exam did not have oliver red blood per rectum, no visualized external hemorrhoids, sent additional occult blood to lab, pending results. H/H stable. 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 -Have spoken to GI doctor director television who recommended outpatient follow up for his FOBT positive and that it is unlikely that elevated WBC is from malignancy and that the p.t had low grade colon cancer in 1998 that was completely resected, CT ab/pelvis did not show signs concerning for malignancy thus re-occurrence of cancer is unlikely. Even so he would not likely be a surgical candidate, he has no overt bleeding and h/h is stable currently. If pt is still here Sunday and we are still concerned for GI bleed, it was recommenced to re-contact GI for further investigation and possible scope. Otherwise (for all the aforementioned reasons) this could be addressed outpt follow up. -We have started protonix for pt complaint of heartburn, we will continue to monitor for h/h and blood per rectum. 8. Sinus tachycardia -Heart rate seems to be controlled after initiation of metoprolol -On Apr 17, 2017 when the pt ambulated, his heart rate would go to 150s to 160s with resolution upon rest, the monitor had consistently shown sinus tachycardia during these events, no underlying arrhythmia such as A. fib. was appreciated, the pt was not diaphoretic, sob, nor did he have CP or palpitations during the events of tachycardia -The patient is a fall risk, however he may benefit from anticoagulation but this would be with very cautious decision making. -Patient continues to remain asymptomatic today, heart rate is controlled with metoprolol, will continue, pt denies chest pain or heart palpitations, no shortness of breath or diaphoresis reported. 9. History of lung cancer -Patient is status post right pneumonectomy 10. History of colon cancer -Patient status post hemicolectomy in 1998 11. History of prostate cancer -Stable 12. DVT prophylaxis -Will continue with heparin Plan/VTE VTE Prophylaxis Ordered?: Yes (heparin, HARSHA/SCD) VS, I&O, 24H, Fishbone Vital Signs/I&O Vital Signs Date Time Temp Pulse Resp B/P (MAP) Pulse Ox O2 Delivery O2 Flow Rate FiO2 04/20/17 05:30 98.3 99 18 135/88 (104) 98 Room Air I&O- Last 24 Hours up to 6 AM 04/21/17 06:00 Intake Total 360 ml Balance 360 ml Laboratory Data 24H LABS Laboratory Tests 2 04/20/17 06:43: Nucleated Red Blood Cells % (auto) 0.0, Anion Gap 9, Glomerular Filtration Rate 16.0L, Blood Urea Nitrogen 41#H, Creatinine 3.80#H, Sodium Level 138, Potassium Level 4.4, Chloride Level 102, Carbon Dioxide Level 27, Calcium Level 9.1, Aspartate Amino Transf (AST/SGOT) 14, Alanine Aminotransferase (ALT/SGPT) 12, Alkaline Phosphatase 64, Total Bilirubin 0.3, Total Protein 6.1L, Albumin 2.8L, Magnesium Level 2.3, Albumin/Globulin Ratio 0.85L CBC/BMP Laboratory Tests 04/20/17 06:43 Red Blood Count 3.72 L, Mean Corpuscular Volume 100.3 H, Mean Corpuscular Hemoglobin 32.8, Mean Corpuscular Hemoglobin Concent 32.7, Red Cell Distribution Width 13.8, Calcium Level 9.1, Aspartate Amino Transf (AST/SGOT) 14 , Alanine Aminotransferase (ALT/SGPT) 12, Alkaline Phosphatase 64, Total Bilirubin 0.3, Total Protein 6.1 L, Albumin 2.8 L Microbiology Microbiology 04/14/17 Blood Culture - Final, Complete NO GROWTH AFTER 5 DAYS 04/14/17 Blood Culture - Final, Complete NO GROWTH AFTER 5 DAYS 04/19/17 Stool Occult Blood (TRINITY) - Final, Complete 04/17/17 Stool Occult Blood (TRINITY) - Final, Complete 04/17/17 Gastrointestinal Tract Panel (PCR) - Final, Complete 04/14/17 MRSA Screen - Final, Complete 04/12/17 Gram Stain - Final, Complete 04/12/17 Sputum Culture - Final, Complete 04/10/17 Gram Stain - Final, Complete 04/10/17 Sputum Culture - Final, Complete 04/18/17 Urine Culture - Final, Complete Yeast Like Organism GME ATTESTATION GME ATTESTATION My faculty preceptor for this patient encounter was physically present during the encounter and was fully available. All aspects of the patient interview, examination, medical decision making process, and medical care plan development were reviewed and approved by the faculty preceptor. The faculty preceptor is aware and concurs with the plan as stated in the body of this note and will attest to such by his/her cosignature. STEVEN CARSON DO Apr 20, 2017 11:34
[2017-04-20 14:00] VITALS: BP 118/68
[2017-04-20 20:50] VITALS: BP 140/64
[2017-04-20] MEDS: ACETAMINOPHEN TAB 650MG DOSE (2X325MG) PO PRN (20:55)
--- NOTE | 2017-04-20 21:06 | MHIPN ---
DATE: 04/09/2017 Mr. Combs is seen this morning on his bedside. He is sitting in the chair today and reports feeling slightly better. He has been very weak and is currently being treated for urinary tract infection. He had frequent falls at home. He has leukocytosis but no obvious source of infection. The patient did receive hemodialysis on Sunday and remains on maintenance hemodialysis three times a week. PHYSICAL EXAMINATION: Temperature 98.3 degrees Fahrenheit, heart rate 99 per minute and respiratory rate 18 per minute. Blood pressure 135/88 mmHg and oxygen saturation 98% on room air. His head is atraumatic. Neck is supple and without JVD or thyroid enlargement. Pupils are equal and reactive to light and sclera is anicteric. Ears, nose and throat are unremarkable. Heart: Sounds are regular and lungs sound clear to auscultation. On the back of right-sided chest he has a dressing with some edema of the chest wall. There is no cellulitis or drainage. Abdomen is soft and nontender. Bowel sounds are normal and there is no palpable organomegaly. Extremities: Have no cyanosis or clubbing. Left forearm AV fistula is patent and removed the dressings from his last dialysis. There is no obvious source of infection. Skin has no other area of rash or ulcers other than back of right-sided chest. Neurologically he seems to be at his baseline mentation without a focal neurological deficit. LABORATORY DATA: Today's labs show WBC count 23.8, hemoglobin 12.2 and hematocrit 37.3. Platelets 415. Sodium 138, potassium 4.4. BUN 41 and creatinine 3.8. Total protein 6.1 and albumin 2.8. Urine culture did come back positive for yeastlike organisms. PROBLEMS: 1. End-stage renal disease. The patient remains on maintenance hemodialysis and plan to dialyze him tomorrow. His volume status is well-compensated and electrolytes are within normal range. There is no indication for emergent dialysis today. 2. Leukocytosis. Source remains uncertain. He had CT scan of abdomen, pelvis and chest. He has been afebrile and remains on Zosyn. In view of positive urine culture for yeast Ditropan is being added 100 mg daily. 3. Anemia. His anemia is very mild and stable. No intervention is indicated. 4. Generalized weakness and deconditioning. No significant changes noted. The patient remains very weak and is likely to require residential placement for subacute rehab.
[2017-04-21] MEDS: IPRATROPIUM 0.5MG/ALBUTEROL 2.5MG INH SOL UD 3ML (DUONEB)(J7620) NEB SCH ×5 (02:00→23:58)
[2017-04-21 04:25] VITALS: BP 136/67
[2017-04-21] MEDS: HEPARIN SOD (PORCINE) 5000 UNITS/ML VIAL SQ SCH ×2 (05:11→20:12)
[2017-04-21] MEDS: VITAMIN D 1,000 INTERNATIONAL UNITS TABLET PO SCH (05:11)
[2017-04-21] MEDS: PANTOPRAZOLE 20 MG TAB PO SCH (05:11)
[2017-04-21] MEDS: VITAMIN B COMPLEX/VIT C CAP PO SCH (05:11)
[2017-04-21] MEDS: LACTOBACILLUS ACIDOPHILUS CAP (BACID) PO SCH ×2 (05:11→20:12)
[2017-04-21] MEDS: FERROUS GLUCONATE 324 MG TAB PO SCH ×2 (05:12→20:12)
[2017-04-21] MEDS: SENOKOT S TAB PO SCH ×2 (05:12→20:12)
[2017-04-21] MEDS: FLUCONAZOLE 100 MG TAB PO SCH (05:12)
[2017-04-21] MEDS: METOPROLOL TART 25 MG TABLET PO SCH ×2 (05:14→20:12)
[2017-04-21] MEDS: KETOCONAZOLE 2% CREAM TOP SCH ×2 (05:15→20:13)
[2017-04-21 06:27] LABS: MEAN CORPUSCULAR HEMOGLOBIN 32.6 pg (27.0-33.0); MEAN CORPUSCULAR HGB CONC 32.6 g/dl (32.0-36.5); PLATELET COUNT, AUTOMATED 446 10^3/uL (150-450); WHITE BLOOD COUNT 25.8 10^3/uL (4.0-10.0)
[2017-04-21 06:44] LABS: ALBUMIN 2.6 GM/DL (3.2-5.2); ALBUMIN/GLOBULIN RATIO 0.63 (1.00-1.93); BILIRUBIN,TOTAL 0.3 MG/DL (0.2-1.0); CALCIUM LEVEL 9.1 MG/DL (8.8-10.2); CREATININE FOR GFR 4.27 MG/DL (0.70-1.30); MAGNESIUM LEVEL 2.4 MG/DL (1.8-2.4); POTASSIUM SERUM 4.2 MEQ/L (3.5-5.1); TOTAL PROTEIN 6.7 GM/DL (6.4-8.2)
[2017-04-21] MEDS ORDERED: ISOVUE-370 76% 100ML VIAL (Q9967) As Ordered ONE (07:09)
--- NOTE | 2017-04-21 10:13 | REP ---
Clinical: Leukocytosis. Technique: Axial contrast enhanced images from the lung bases to the pubic symphysis using 100 ml Isovue 370 intravenous contrast material with imaging in the arterial phase of enhancement. Coronal and sagittal re-formations were obtained. Comparison: Noncontrast examination dated 04/14/2017. Findings: The lung bases again demonstrate prior right pneumonectomy with associated chronic fluid collection in the right hemithorax demonstrating peripheral and internal calcifications as well as associated volume loss and ipsilateral shift of the visualized mediastinum and heart. Left lung base is relatively clear and without acute process. Scattered calcified granuloma are again identified. Moderate/significant atherosclerotic changes to the visualized thoracoabdominal aorta extending to the bifurcation of common iliac arteries including peripheral calcifications and small amounts of mural thrombus. There is no evidence for abdominal aortic aneurysm/dissection or significant stenosis. There is satisfactory opacification and appearance of the celiac axis, superior mesenteric artery, and inferior mesenteric artery as well as common iliac arteries and extension to the visualized pelvis and lower extremities. A solitary right renal artery is identified with atheromatous plaquing at its origin and roughly 50% narrowing is appreciated to the right renal hilum. There is considerable attenuation and atheromatous narrowing of the two left renal arteries to the left renal hilum with narrowing on the order of approximately 70%. Liver, spleen, and bilateral adrenal glands are relatively normal. Incidental splenic calcifications are consistent with history of granulomatous disease. Atrophic changes of the pancreas with scattered calcifications consistent with chronic pancreatitis. The patient is status post cholecystectomy. The kidneys demonstrate relatively symmetric bilateral cortical thinning and atrophic changes along with presumed chronic hydronephrosis and hydroureter and renal stents are appreciated bilaterally to the bladder. The enteric system is without obstruction or acute inflammatory process. Evaluation of the pelvic structures is significantly limited due to metallic streak artifact despite reevaluation using metal artifact reduction algorithm (O-MAR). No obvious ascites. No retroperitoneal or intraperitoneal adenopathy. No abnormal fluid collection or abscess. No free air. Extensive degenerative changes to the musculoskeletal structures appreciated. Impression: 1. Atherosclerotic changes to the aorta and renal arteries without aortic aneurysmal dilatation, dissection or stenosis. 2. No acute abdominopelvic pathology is appreciated. Specifically, no ascites, drainable collection/abscess or obvious inflammatory process. 3. Chronic changes as described above. Signed by Nitin Alston MD 04/21/2017 10:04 A
[2017-04-21] MEDS: PIPERACILLIN/TAZOBACTAM SOD 2.25 GM in APPROPRIATE DILUENT 1 EA IV SCH (11:02)
--- NOTE | 2017-04-21 11:44 | IPNPDOC ---
Subjective Date Seen The patient was seen on 04/21/17. Subjective Chief Complaint/HPI The patient is a 87-year-old male admitted with a reason for visit of Fall Uti. General: Denies: Chills, Night Sweats Constitutional: Reports: Weakness (b/l legs), Denies: Chills, Fever Eyes: Denies: Pain, Vision change Pulmonary: Denies: Dyspnea, Cough Cardiovascular: Denies: Chest Pain, Palpitations, Orthopnea, Edema, Lt Headedness Gastrointestinal: Denies: Nausea, Vomiting, Abdominal Pain, Constipation, Melena, Hematochezia Genitourinary: Denies: Dysuria, Frequency, Incontinence Neurological: Reports: Weakness, Denies: Numbness Psych: Reports: Mood Normal Objective Physical Examination General Exam: Positive: Alert, Cooperative, No Acute Distress Eye Exam: Positive: Conjunctiva & lids normal, EOMI, Negative: Sclera icteric ENT Exam: Positive: Atraumatic, Mucous membr. moist/pink Neck Exam: Negative: JVD Chest Exam: Positive: Clear to auscultation, Other (Diminised breath sounds in the RUL, chronic) Heart Exam: Positive: Rate Normal, Normal S1, Normal S2 Abdomen Exam: Positive: Soft, Negative: Tenderness Extremity Exam: Positive: Other (back pain is no longer present on palpitation ), Negative: Edema, Tenderness, Swelling Neuro Exam: Positive: Normal Speech Psych Exam: Positive: Oriented x 3 Assessment /Plan Assessment This is an 87-year-old male who was admitted for reason of recurrent falls. 1. Leukocytosis -The patient's white count has increased today to 25.8 from 23.8 from one day ago, continuing to increase -Repeat u/a did show + leuk. esterase and TNTC WBC, pt may be colonized, urine cx + for yeast like organism. C/w fluconazole and Zosyn therapy for now. Will add on vancomycin therapy for additional coverage, no other focal site for infection at this time. -Initial urine culture from April 09, 2017 showed positive Pseudomonas aeruginosa -No focal source of infection aside from UTI, he continues to be asymptomatic and denies increase in frequency, blood in urine or pain with urination -The patient continues to remain afebrile -Repeat blood cultures from April 09, 2017 negative as well as repeat blood cultures from 04/14/17 -Repeat Abdominal pelvic CT scan today showed atherosclerotic changes to the aorta and renal arteries without aortic aneurysmal dilatation, dissection or stenosis, no acute abdominopelvic pathology is appreciated, specifically no ascites, drainable collection of abscess or obvious inflammatory process. Chronic changes as described above. . -Continue to follow ESR and CRP, elevated CRP again today to 6.35 from 5.46 -pt denies history of contact with birds or rodents, has one dog at home for the past 10 years, no recent travel or sick contact 2. History of recurrent UTI -Patient does have bilateral ureteral stents which are exchanged every 2-3 months secondary to bilateral hydronephrosis from underlying prostate cancer -Stents were last exchanged 04/05/2017 -Patient is on Zosyn and antifungal, will add on vancomycin for additional coverage, no other focal source infection at this point -Ucx + yeast like organism, u/a showed positive leuk esterase and wbc, pt may be colonized 3. Recurrent falls likely secondary to deconditioning -PT/OT has been working the patient for functional optimization, they will continue to work with him today. -He continues to have some episodes of stumbling backwards while trying to ambulate. We will follow their recommendations. PFS is consulted for possible placement. 4. Back pain -The patient states his back pain is resolved -He did have a rib series which did not demonstrate any fracture or concerns for bony metastases, he did fall prior to presentation to the ED on his walker on the right side of his chest -He does have a history of lung cancer and is status post right pneumonectomy -He had his whole body bone scan which revealed a focus of increased uptake in the anterior end of the left second rib possibly due to occult fracture or costochondritis. Metastatic lesion is not totally excluded but no lesion seen on CT from 04/14/2017. No other compelling scintigraphic evidence of osseous metastases. -May consider PET scan for further evaluation for bone pain given Bone scan results -Continue pain control with Tylenol 5. COPD -Stable Chest x-rays have been negative so far for any acute processes We will continue regimens as ordered 6. End-stage renal disease -Nephrology on board for patient's regularly scheduled dialysis sessions, will have dialysis again tomorrow. Greatly appreciate their help. 7. Fecal occult blood positive -h/h stable -Per nursing staff, pt has not had blood in bowel movements. -Iron studies not consistent with iron def. anemia, low TIBC and increased Ferritin - Pt. on rectal exam did not have oliver red blood per rectum, no visualized external hemorrhoids, sent additional occult blood to lab, pending results. H/H stable. MCV elevated, have sent for folate and B12, still pending -Last colonoscopy 1998 found adenomatous polyp after he had a positive guaiac test, he then ended up having right hemicolectomy in 1998 for GI adenoma. -Have spoken to GI doctor end user consultant who recommended outpatient follow up for his FOBT positive and that it is unlikely that elevated WBC is from malignancy and that the p.t had low grade colon cancer in 1998 that was completely resected, CT ab/pelvis did not show signs concerning for malignancy thus re-occurrence of cancer is unlikely. Even so he would not likely be a surgical candidate, he has no overt bleeding and h/h is stable currently. If pt is still here Sunday and we are still concerned for GI bleed, it was recommenced to re-contact GI for further investigation and possible scope. Otherwise (for all the aforementioned reasons) this could be addressed outpt follow up. -We have started protonix for pt complaint of heartburn which pt states has helped a lot, we will continue to monitor for h/h and blood per rectum. 8. Sinus tachycardia -Heart rate seems to be controlled after initiation of metoprolol -On 2016 when the pt. ambulated, his heart rate would go to 150s to 160s with resolution upon rest, the monitor had consistently shown sinus tachycardia during these events, no underlying arrhythmia such as A. fib. was appreciated, the pt was not diaphoretic, sob, nor did he have CP or palpitations during the events of tachycardia -The patient is a fall risk, however he may benefit from anticoagulation but this would be with very cautious decision making. -Patient continues to remain asymptomatic today, heart rate is controlled with metoprolol, will continue, pt denies chest pain or heart palpitations, no shortness of breath or diaphoresis reported. 9. History of lung cancer -Patient is status post right pneumonectomy 10. History of colon cancer -Patient status post hemicolectomy in 1998 11. History of prostate cancer -Stable 12. DVT prophylaxis -Will continue with heparin Plan/VTE VTE Prophylaxis Ordered?: Yes (heparin, HARSHA/SCD) VS, I&O, 24H, Fishbone Vital Signs/I&O Vital Signs Date Time Temp Pulse Resp B/P (MAP) Pulse Ox O2 Delivery O2 Flow Rate FiO2 04/21/17 05:14 68 136/68 04/21/17 04:25 97.4 18 99 Room Air I&O- Last 24 Hours up to 6 AM 04/22/17 06:00 Intake Total 840 ml Balance 840 ml Laboratory Data 24H LABS Laboratory Tests 2 04/21/17 05:54: Nucleated Red Blood Cells % (auto) 0.0, Anion Gap 10, Glomerular Filtration Rate 14.0L, Blood Urea Nitrogen 53H, Creatinine 4.27H, Sodium Level 135L, Potassium Level 4.2, Chloride Level 101, Carbon Dioxide Level 24, Calcium Level 9.1, Aspartate Amino Transf (AST/SGOT) 15, Alanine Aminotransferase (ALT/SGPT) 17, Alkaline Phosphatase 65, Total Bilirubin 0.3, Total Protein 6.7, Albumin 2.6L, Magnesium Level 2.4, C-Reactive Protein, Quantitative 6.35H, Albumin/ Globulin Ratio 0.63L CBC/BMP Laboratory Tests 04/21/17 05:54 Red Blood Count 3.68 L, Mean Corpuscular Volume 100.0 H, Mean Corpuscular Hemoglobin 32.6, Mean Corpuscular Hemoglobin Concent 32.6, Red Cell Distribution Width 14.0, Calcium Level 9.1, Aspartate Amino Transf (AST/SGOT) 15 , Alanine Aminotransferase (ALT/SGPT) 17, Alkaline Phosphatase 65, Total Bilirubin 0.3, Total Protein 6.7, Albumin 2.6 L Microbiology Microbiology 04/14/17 Blood Culture - Final, Complete NO GROWTH AFTER 5 DAYS 04/14/17 Blood Culture - Final, Complete NO GROWTH AFTER 5 DAYS 04/19/17 Stool Occult Blood (TRINITY) - Final, Complete 04/17/17 Stool Occult Blood (TRINITY) - Final, Complete 04/17/17 Gastrointestinal Tract Panel (PCR) - Final, Complete 04/14/17 MRSA Screen - Final, Complete 04/12/17 Gram Stain - Final, Complete 04/12/17 Sputum Culture - Final, Complete 04/18/17 Urine Culture - Final, Complete Yeast Like Organism GME ATTESTATION GME ATTESTATION My faculty preceptor for this patient encounter was physically present during the encounter and was fully available. All aspects of the patient interview, examination, medical decision making process, and medical care plan development were reviewed and approved by the faculty preceptor. The faculty preceptor is aware and concurs with the plan as stated in the body of this note and will attest to such by his/her cosignature. STEVEN CARSON DO Apr 21, 2017 11:44
[2017-04-21] MEDS ORDERED: VANCOMYCIN HCL 1,000 MG, VIAL MATE ADAPTER 1 EACH in D5W 250 ML IV SCH (15:00)
[2017-04-21] MEDS ORDERED: VANCOMYCIN HCL 1,000 MG, VIAL MATE ADAPTER 1 EACH in D5W 250 ML IV ONE (15:00)
--- NOTE | 2017-04-21 18:19 | IPN ---
DATE: 04/21/2017 Mr. Meade is seen this morning on his bedside. He is being dialyzed today. The patient is feeling as usual and denies any dyspnea, chest pain, nausea or vomiting. He remains very weak and is unable to ambulate. He has no fever or chills. On physical exam, temperature 97.4 degrees Fahrenheit, heart rate 68 per minute and respiratory rate 18 per minute. Blood pressure 136/67 mmHg and oxygen saturation 99% on room air. Head is atraumatic. Ears, nose and throat are unremarkable. Pupils equal and reactive to light and sclera is anicteric. Heart sounds are regular. Lungs sound slightly diminished. Abdomen is soft and nontender and bowel sounds are normal. There is no palpable organomegaly. Extremities have no cyanosis or clubbing. His left forearm atrioventricular (AV) fistula is patent. Skin has no rash or ulcers. Neurologically, he is at his baseline mentation without any focal neurological deficit. Today's labs show WBC count 25.8, hemoglobin 12.0, hematocrit 36.8. Platelets 446. Sodium 135 and potassium 4.2. BUN 53 and creatinine 4.27. A C-reactive protein is 6.35. PROBLEMS: 1. End-stage renal disease. The patient is being dialyzed and he tolerates dialysis very well. His volume status has been well compensated. We are trying to remove only minimal amount of fluid. 2. Generalized weakness. The patient remains quite weak and he does have leukocytosis but has been afebrile. He has been treated for urinary tract infection. 3. Leukocytosis. His leukocytosis is gradually worsening. All workup, including imaging of his chest, abdomen and pelvis, has been negative for any signs of infection or fluid collection. At present, he remains on vancomycin after dialysis and his Zosyn has been stopped today. 4. Anemia. His anemia is mild and stable and does not need any intervention.
[2017-04-21 22:00] VITALS: BP 138/63
[2017-04-22 06:00] VITALS: BP 133/64
[2017-04-22 06:16] LABS: BASO # 0.1 10^3/uL (0.0-0.2); BASO % 0.7 % (0.0-1.0); EOS # 0.7 10^3/uL (0.0-0.50); EOS % 4.1 % (0.0-3.0); IMMATURE GRANULOCYTE % 4.6 % (0-0); LYMPH # 0.9 10^3/uL (1.5-4.5); LYMPH % 5.9 % (24.0-44.0); MEAN CORPUSCULAR HEMOGLOBIN 32.9 pg (27.0-33.0); MEAN CORPUSCULAR VOLUME 99.7 fl (80.0-96.0); MONO % 6.3 % (0.0-5.0); NEUTROPHILS # 12.6 10^3/uL (1.8-7.7); NEUTROPHILS % 78.4 % (36.0-66.0); PLATELET COUNT, AUTOMATED 373 10^3/uL (150-450); RED CELL DISTRIBUTION WIDTH 13.9 % (11.5-14.5)
[2017-04-22 06:39] LABS: ALBUMIN 2.2 GM/DL (3.2-5.2); ALBUMIN/GLOBULIN RATIO 0.59 (1.00-1.93); BILIRUBIN,TOTAL 0.3 MG/DL (0.2-1.0); CREATININE FOR GFR 2.58 MG/DL (0.70-1.30); GLOMERULAR FILTRATION RATE 25.1 (>35); MAGNESIUM LEVEL 2.2 MG/DL (1.8-2.4); POTASSIUM SERUM 4.4 MEQ/L (3.5-5.1); TOTAL PROTEIN 5.9 GM/DL (6.4-8.2)
[2017-04-22] MEDS: LACTOBACILLUS ACIDOPHILUS CAP (BACID) PO SCH ×2 (08:14→21:05)
[2017-04-22] MEDS: SENOKOT S TAB PO SCH ×2 (08:14→21:06)
[2017-04-22] MEDS: FLUCONAZOLE 100 MG TAB PO SCH (08:14)
[2017-04-22] MEDS: PANTOPRAZOLE 20 MG TAB PO SCH (08:14)
[2017-04-22] MEDS: VITAMIN D 1,000 INTERNATIONAL UNITS TABLET PO SCH (08:14)
[2017-04-22] MEDS: HEPARIN SOD (PORCINE) 5000 UNITS/ML VIAL SQ SCH ×2 (08:14→21:05)
[2017-04-22] MEDS: VITAMIN B COMPLEX/VIT C CAP PO SCH (08:14)
[2017-04-22] MEDS: FERROUS GLUCONATE 324 MG TAB PO SCH ×2 (08:14→21:06)
[2017-04-22] MEDS: METOPROLOL TART 25 MG TABLET PO SCH ×2 (08:15→21:06)
[2017-04-22] MEDS: KETOCONAZOLE 2% CREAM TOP SCH ×2 (08:16→21:07)
[2017-04-22] MEDS: IPRATROPIUM 0.5MG/ALBUTEROL 2.5MG INH SOL UD 3ML (DUONEB)(J7620) NEB SCH ×3 (09:20→20:27)
--- NOTE | 2017-04-22 14:58 | IPN ---
DATE: 04/22/2017 Mr. Combs is seen this morning on his bedside. He is feeling well and sitting in the chair. He underwent hemodialysis yesterday, which he tolerated well. The patient denies any dyspnea, chest pain, nausea, vomiting, abdominal pain or fever. On physical examination, temperature 97.2 degrees Fahrenheit, heart rate 87 per minute and respiratory rate 18 per minute. Blood pressure 133/64 mmHg and oxygen saturation 98% on room air. Head is atraumatic. Pupils equal and reactive to light and sclera is anicteric. Neck is supple and without jugular venous distention (JVD) or thyroid enlargement. Heart sounds are regular. Lungs clear to auscultation. Abdomen soft and nontender and without palpable organomegaly. Bowel sounds are normal. Extremities have no cyanosis or clubbing. Left forearm atrioventricular (AV) fistula is patent and is currently wrapped with dressing. Skin has no rash or ulcers. Neurologically, he is awake, alert and at his baseline mentation. Today's labs show WBC count down to 16.0, hemoglobin 10.5 and hematocrit 31.8. Sodium 138 and potassium 4.4. BUN 24 and creatinine 2.58. PROBLEMS 1. End-stage renal disease. Patient underwent hemodialysis yesterday, which he tolerated well. We will plan on next dialysis for 04/24/2017. 2. Anemia. His anemia is stable and does not need any intervention. 3. Leukocytosis. No obvious source and all investigations have been negative. Today he has significant decrease in the WBC count, which is encouraging. 4. Generalized weakness and deconditioning. Patient continues with physical therapy. He is likely to require subacute rehabilitation.
--- NOTE | 2017-04-22 21:58 | IPN ---
DATE: 04/22/2017 SUBJECTIVE: The patient is seen and examined in the room today. The patient does not have acute complaints. Denied any fever or chills. Denied any issues with urination. Denies any diarrhea. The patient has good oral intake. No overnight events reported. OBJECTIVE: VITAL SIGNS: Temperature 97.2, pulse 87, respirations 19, blood pressure 133/64, pulse oximetry 98% in room air. GENERAL: No sign of acute distress. Alert and oriented times three. HEENT: Normocephalic, atraumatic. Extraocular motor grossly intact. CARDIOVASCULAR: Positive S1, S2. Regular rate. LUNGS: Clear to auscultation bilaterally. ABDOMEN: Soft, nontender, nondistended. Bowel sounds present. EXTREMITIES: Arteriovenous (AV) fistula located at left upper extremity. No sign of edema. No sign of cyanosis. LABORATORY DATA: WBC is 16, hemoglobin 10.5, hematocrit 31.8, platelet count is 373. Sodium is 138, potassium 4.4, chloride 103, carbon dioxide 27, BUN 24, creatinine 2.48, GFR is 25.1, fasting glucose 90, calcium nine, magnesium 2.2. Total bilirubin is 0.3, AST 15, ALT 13, alkaline phosphatase 55. Total protein 5.9, albumin 2.2. ASSESSMENT AND PLAN: 1. Leukocytosis. Initially, the patient has pseudomonas urinary tract infection (UTI). The patient's sample was performed on 04/09/2017. The patient was started on antibiotic treatment. Later, the patient continued to have fluctuation of the white blood cell count (WBC) in the last few days. The patient has persistent increase of the white blood cell count. Multiple blood cultures were obtained. Blood culture obtained on 04/09, 04/14, and both came back negative. Sputum culture was performed which also came back negative. Gastrointestinal (GI) panel and methicillin-resistant Staphylococcus aureus (MRSA) screen were also performed which showed negative results. Repeated urine culture performed on 04/18/2017, showed yeastlike organism. There is no pseudomonal organism detected. During this hospitalization, due to worsening white count, the patient was empirically started on vancomycin. It did help with the leukocytosis initially; however, later, the patient continued to have increased leukocytosis. Yesterday, Zosyn was discontinued and today, the patient showed significant decrease of white count. WBC changed from 25.8 to 16. We will continue to observe the patient. Currently the patient does not have any source of the infection. 2. Recurrent falls secondary to deconditioning. The patient continues to work with physical therapy and occupational therapy for optimization. The patient may benefit from possible placement. We appreciate patient and family services (PFS) assistance. 3. Chronic obstructive pulmonary disease (COPD), stable. No sign of exacerbation. The patient does not have any wheeze during physical exam. The patient is breathing comfortably on room air. 4. End-stage renal disease on hemodialysis. Nephrology has been assisting on the case. The patient's next hemodialysis schedule is on 04/24/2017. 5. Back pain. The patient did have imaging study performed. 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 There is no compelling imaging evidence for osseous metastasis. 6. Secondary hyperparathyroidism. 7. Positive occult blood test. The patient's hemoglobin and hematocrit have been stable. Per patient, currently the patient's stool is brownish. The patient may benefit from elective colonoscopy in the future. 8. History of lung cancer, status post right-sided pneumonectomy. 9. History of colon cancer, status post hemicolectomy. 10. Multiple bilateral ureteral stent exchanges. Done every three months by Dr[address] Ibrahim. 11. Yeast in the urine, on Diflucan. Initiation day 04/17/2017. 12. Deep venous thrombosis (DVT) prophylaxis on heparin. MTDD
[2017-04-22 22:00] VITALS: BP 144/68
[2017-04-23] MEDS: IPRATROPIUM 0.5MG/ALBUTEROL 2.5MG INH SOL UD 3ML (DUONEB)(J7620) NEB SCH ×5 (00:13→19:15)
[2017-04-23 06:00] VITALS: BP 142/69
[2017-04-23 06:03] LABS: BASO # 0.1 10^3/uL (0.0-0.2); BASO % 0.6 % (0.0-1.0); EOS # 0.6 10^3/uL (0.0-0.50); EOS % 4.3 % (0.0-3.0); IMMATURE GRANULOCYTE % 3.5 % (0-0); LYMPH # 0.9 10^3/uL (1.5-4.5); LYMPH % 6.6 % (24.0-44.0); MEAN CORPUSCULAR HEMOGLOBIN 31.9 pg (27.0-33.0); MEAN CORPUSCULAR HGB CONC 32.3 g/dl (32.0-36.5); MEAN CORPUSCULAR VOLUME 98.8 fl (80.0-96.0); MONO # 0.9 10^3/uL (0.0-0.8); MONO % 6.4 % (0.0-5.0); NEUTROPHILS # 10.4 10^3/uL (1.8-7.7); NEUTROPHILS % 78.6 % (36.0-66.0); PLATELET COUNT, AUTOMATED 408 10^3/uL (150-450); WHITE BLOOD COUNT 13.3 10^3/uL (4.0-10.0)
[2017-04-23 06:13] LABS: ALBUMIN 2.2 GM/DL (3.2-5.2); ALBUMIN/GLOBULIN RATIO 0.63 (1.00-1.93); BILIRUBIN,TOTAL 0.2 MG/DL (0.2-1.0); CALCIUM LEVEL 8.9 MG/DL (8.8-10.2); CREATININE FOR GFR 3.18 MG/DL (0.70-1.30); GLOMERULAR FILTRATION RATE 19.7 (>35); MAGNESIUM LEVEL 2.2 MG/DL (1.8-2.4); POTASSIUM SERUM 4.7 MEQ/L (3.5-5.1); TOTAL PROTEIN 5.7 GM/DL (6.4-8.2)
[2017-04-23] MEDS: METOPROLOL TART 25 MG TABLET PO SCH ×2 (06:38→20:57)
[2017-04-23] MEDS: VITAMIN B COMPLEX/VIT C CAP PO SCH (06:38)
[2017-04-23] MEDS: FERROUS GLUCONATE 324 MG TAB PO SCH ×2 (06:39→20:57)
[2017-04-23] MEDS: SENOKOT S TAB PO SCH ×2 (06:39→20:57)
[2017-04-23] MEDS: LACTOBACILLUS ACIDOPHILUS CAP (BACID) PO SCH ×2 (06:39→20:56)
[2017-04-23] MEDS: VITAMIN D 1,000 INTERNATIONAL UNITS TABLET PO SCH (06:39)
[2017-04-23] MEDS: FLUCONAZOLE 100 MG TAB PO SCH (06:39)
[2017-04-23] MEDS: PANTOPRAZOLE 20 MG TAB PO SCH (06:39)
[2017-04-23] MEDS: HEPARIN SOD (PORCINE) 5000 UNITS/ML VIAL SQ SCH ×2 (06:41→20:57)
[2017-04-23] MEDS ORDERED: DARBEPOETIN 100 MCG/0.5 ML *DIALYSIS* SYRINGE (J0882) IV SCH (09:00)
[2017-04-23] MEDS: KETOCONAZOLE 2% CREAM TOP SCH ×2 (09:04→20:57)
--- NOTE | 2017-04-23 11:52 | IPN ---
DATE OF VISIT: 04/23/2017 Mr. Combs is seen this morning on his bedside. He is feeling well and denies any complaints other than weakness. He denies any nausea, vomiting, dyspnea, chest pain, fever, or chills. He is well aware that today is Sunday, and it is his dialysis day. On physical examination, temperature 98 degrees Fahrenheit, heart rate 86 per minute, and respiratory rate 18 per minute. Blood pressure 142/65 mmHg and oxygen saturation 98% on room air. Head: Is atraumatic. Pupils equal and reactive to light, and sclerae anicteric. Neck is supple and without jugular venous distention (JVD) or thyroid enlargement. Heart sounds are regular. Lungs with moderate bilateral air entry. There are scattered rhonchi. Abdomen: Soft and nontender, and bowel sounds are normal. Extremities have no cyanosis or clubbing. Neurologically, he is awake, alert, and at his baseline mentation. Skin: Has no rash or ulcers. Today's laboratories show WBC count 13.3, hemoglobin 10.2, and hematocrit 31.6. Sodium 139 and potassium 4.7. BUN 35 and creatinine 3.18. Total protein is 5.7 and albumin 2.2. PROBLEMS: 1. End-stage renal disease. The patient was last dialyzed on Sunday and will plan to dialyze him again tomorrow. His regular days are Sunday, Sunday, and Sunday. However, in the hospital, his days have been switched due to scheduling reason. There is no emergent indication for dialysis today, and he will wait until tomorrow. 2. Leukocytosis. This is improving nicely since his antibiotics were stopped. The patient is completely asymptomatic, and we will continue to monitor. He had multiple imaging studies done, which were all negative for any fluid collection. 3. Anemia. His anemia is stable at baseline, and we will treat with Aranesp 100 mcg once a week during hemodialysis. 4. Hypertension. Blood pressure is reasonably well-controlled on current antihypertensive medications. DISPOSITION: The patient is likely to require subacute rehabilitation or long-term [facility] placement. At this point, he is too weak for discharge home.
[2017-04-23 13:06] LABS: FOLATE 19.9 NG/ML (>5.4)
[2017-04-23 14:00] VITALS: BP 119/57
[2017-04-23] MEDS ORDERED: VANCOMYCIN HCL 1,000 MG, VIAL MATE ADAPTER 1 EACH in D5W 250 ML IV SCH (14:45)
[2017-04-23] MEDS ORDERED: CHECK TO SEE IF PATIENT IS RECEIVING DIALYSIS TODAY AND REFER TO THE VANCOMYCIN ORDER XX SCH (16:00)
--- NOTE | 2017-04-23 17:01 | IPNPDOC ---
Text Note Date of Service The patient was seen on 04/23/17. NOTE SUBJECTIVE: The patient is seen and examined in the room today. The patient does not have acute complaints. Denied any fever or chills. Denied any issues with urination. Denies any diarrhea. The patient has good oral intake. No overnight events reported. Per patient, he lives with his and they try to take care of each other. However, it has been more difficult. Currently their son is trying to take care of his while he is in the hospital. OBJECTIVE: VITAL SIGNS: Listed below. GENERAL: No sign of acute distress. Alert and oriented times three. HEENT: Normocephalic, atraumatic. Extraocular motor grossly intact. CARDIOVASCULAR: Positive S1, S2. Regular rate. LUNGS: Clear to auscultation bilaterally. ABDOMEN: Soft, nontender, nondistended. Bowel sounds present. EXTREMITIES: Arteriovenous (AV) fistula located at left upper extremity. No sign of edema. No sign of cyanosis. LABORATORY DATA: Listed below ASSESSMENT AND PLAN: 1. Leukocytosis. Initially, the patient has pseudomonas urinary tract infection (UTI). The patient's sample was performed on 04/09/2017. The patient was started on antibiotic treatment. Later, the patient continued to have fluctuation of the white blood cell count (WBC) in the last few days. The patient has persistent increase of the white blood cell count. Multiple blood cultures were obtained. Blood culture obtained on 04/09, 04/14, and both came back negative. Sputum culture was performed which also came back negative. Gastrointestinal (GI) panel and methicillin-resistant Staphylococcus aureus (MRSA) screen were also performed which showed negative results. Repeated urine culture performed on 04/18/2017, showed yeastlike organism. There is no pseudomonal organism detected. During this hospitalization, due to worsening white count, the patient was empirically started on vancomycin. It did help with the leukocytosis initially; however, later, the patient continued to have increased leukocytosis. Since 04/21/17, vanco and zysyn were discontinued. Patient continues to show improvement of WBC. Currently patient remains afebrile. No sign of active infection. 2. Recurrent falls secondary to deconditioning. The patient continues to work with physical therapy and occupational therapy for optimization. The patient may benefit from possible placement. We appreciate patient and family services (PFS) assistance. 3. Chronic obstructive pulmonary disease (COPD), stable. No sign of exacerbation. The patient does not have any wheeze during physical exam. The patient is breathing comfortably on room air. 4. End-stage renal disease on hemodialysis. Nephrology has been assisting on the case. The patient's next hemodialysis schedule is on 04/24/2017. 5. Back pain. The patient did have imaging study performed. 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 There is no compelling imaging evidence for osseous metastasis. 6. Secondary hyperparathyroidism. 7. Positive occult blood test. The patient's hemoglobin and hematocrit have been stable. Per patient, currently the patient's stool is brownish. The patient may benefit from elective colonoscopy in the future. 8. History of lung cancer, status post right-sided pneumonectomy. 9. History of colon cancer, status post hemicolectomy. 10. Multiple bilateral ureteral stent exchanges. Done every three months [address] Dr[address] Ibrahim. 11. Yeast in the urine, on Diflucan. Initiation day 04/17/2017. 12. Deep venous thrombosis (DVT) prophylaxis on heparin. VS,Fishbone, I+O VS, Fishbone, I+O Laboratory Tests 04/23/17 05:43 Red Blood Count 3.20 L, Mean Corpuscular Volume 98.8 H, Mean Corpuscular Hemoglobin 31.9, Mean Corpuscular Hemoglobin Concent 32.3, Red Cell Distribution Width 14.0, Neutrophils (%) (Auto) 78.6 H, Lymphocytes (%) (Auto) 6.6 L, Monocytes (%) (Auto) 6.4 H, Eosinophils (%) (Auto) 4.3 H, Basophils (%) ( Auto) 0.6, Neutrophils # (Auto) 10.4 H, Lymphocytes # (Auto) 0.9 L, Monocytes # (Auto) 0.9 H, Eosinophils # (Auto) 0.6 H, Basophils # (Auto) 0.1, Calcium Level 8.9, Aspartate Amino Transf (AST/SGOT) 16, Alanine Aminotransferase (ALT/SGPT) 13, Alkaline Phosphatase 54, Total Bilirubin 0.2, Total Protein 5.7 L, Albumin 2.2 L Vital Signs Date Time Temp Pulse Resp B/P (MAP) Pulse Ox O2 Delivery O2 Flow Rate FiO2 04/23/17 09:45 Room Air 04/23/17 06:38 86 142/65 04/23/17 06:00 98.0 18 98 I&O- Last 24 Hours up to 6 AM 04/24/17 06:00 Intake Total 360 ml Output Total 0 ml Balance 360 ml BENITEZ AMBROSIO DO Apr 23, 2017 17:01
[2017-04-23 22:00] VITALS: BP 133/62
[2017-04-24] MEDS: IPRATROPIUM 0.5MG/ALBUTEROL 2.5MG INH SOL UD 3ML (DUONEB)(J7620) NEB SCH ×3 (01:11→21:20)
[2017-04-24 06:00] VITALS: BP 130/64
[2017-04-24 06:23] LABS: BASO # 0.1 10^3/uL (0.0-0.2); BASO % 0.7 % (0.0-1.0); EOS # 0.3 10^3/uL (0.0-0.50); EOS % 2.6 % (0.0-3.0); IMMATURE GRANULOCYTE % 3.8 % (0-0); LYMPH # 0.7 10^3/uL (1.5-4.5); LYMPH % 6.2 % (24.0-44.0); MEAN CORPUSCULAR HEMOGLOBIN 32.8 pg (27.0-33.0); MEAN CORPUSCULAR HGB CONC 32.7 g/dl (32.0-36.5); MEAN CORPUSCULAR VOLUME 100.3 fl (80.0-96.0); MONO # 0.7 10^3/uL (0.0-0.8); MONO % 5.9 % (0.0-5.0); NEUTROPHILS # 9.7 10^3/uL (1.8-7.7); NEUTROPHILS % 80.8 % (36.0-66.0); PLATELET COUNT, AUTOMATED 402 10^3/uL (150-450)
[2017-04-24 06:42] LABS: ALBUMIN 2.3 GM/DL (3.2-5.2); ALBUMIN/GLOBULIN RATIO 0.59 (1.00-1.93); BILIRUBIN,TOTAL 0.2 MG/DL (0.2-1.0); CALCIUM LEVEL 9.2 MG/DL (8.8-10.2); CREATININE FOR GFR 3.47 MG/DL (0.70-1.30); GLOMERULAR FILTRATION RATE 17.8 (>35); POTASSIUM SERUM 4.9 MEQ/L (3.5-5.1); TOTAL PROTEIN 6.2 GM/DL (6.4-8.2)
[2017-04-24] MEDS: PANTOPRAZOLE 20 MG TAB PO SCH (07:10)
[2017-04-24] MEDS: LACTOBACILLUS ACIDOPHILUS CAP (BACID) PO SCH ×2 (07:11→21:47)
[2017-04-24] MEDS: METOPROLOL TART 25 MG TABLET PO SCH ×2 (07:11→21:48)
[2017-04-24] MEDS: FERROUS GLUCONATE 324 MG TAB PO SCH ×2 (07:11→21:48)
[2017-04-24] MEDS: HEPARIN SOD (PORCINE) 5000 UNITS/ML VIAL SQ SCH ×2 (07:12→21:49)
[2017-04-24] MEDS: VITAMIN D 1,000 INTERNATIONAL UNITS TABLET PO SCH (07:12)
[2017-04-24] MEDS: SENOKOT S TAB PO SCH ×2 (07:12→21:47)
[2017-04-24] MEDS: VITAMIN B COMPLEX/VIT C CAP PO SCH (07:12)
[2017-04-24] MEDS: KETOCONAZOLE 2% CREAM TOP SCH ×2 (07:12→21:50)
[2017-04-24] MEDS ORDERED: LIDOCAINE 1% SDV 5 ML VIAL SC ONE (12:00)
[2017-04-24] MEDS ORDERED: HEPARIN 1,000 UNITS/ML 10ML VIAL (FOR RADIOLOGY& DIALYSIS ONLY) IV ONE (12:00)
[2017-04-24 14:04] VITALS: BP 142/69
--- NOTE | 2017-04-24 17:29 | IPN ---
DATE: 04/24/2017 Mr. Combs is seen this afternoon on his bedside during hemodialysis. He is feeling well and denies any nausea, vomiting, dyspnea or chest pain. He remains weak and has very limited ability to walk. He has no fever or chills. He reports a good appetite and has been eating well. PHYSICAL EXAMINATION: Temperature 97.9 degrees Fahrenheit, heart rate 78 per minute and respiratory rate 20 per minute. Blood pressure 142/69 mmHg and oxygen saturation 100% on room air. Head: Is atraumatic. Neck is supple and without jugular venous distention (JVD) or thyroid enlargement. Pupils equal and reactive to light and sclera is anicteric. Heart: Sounds are regular and lungs clear to auscultation. Abdomen: Soft and nontender. Bowel sounds are normal. Extremities have no cyanosis or clubbing. Neurologically he is awake, alert and oriented times three. Today's labs show WBC count 12.0, hemoglobin 10.5 and hematocrit 32.1. Sodium 138 and potassium 4.9. BUN 42 and creatinine 3.47. PROBLEMS: 1. End-stage renal disease. The patient is tolerating his dialysis treatment well. We are removing about 1.5 liters of fluid as tolerated. 2. Anemia. His anemia is stable and we will continue to monitor closely. He is being treated with Aranesp during dialysis as needed. 3. Urinary tract infection. The patient has been treated and seems to be doing well. He is currently not on any antibiotics. 4. Leukocytosis. This is improving. We stopped his antibiotics. No intervention is indicated at this time as the patient is completely afebrile and asymptomatic. 5. Generalized weakness. The patient continues with physical therapy. He is likely to require subacute rehabilitation or group home placement.
--- NOTE | 2017-04-24 17:30 | IPNPDOC ---
Text Note Date of Service The patient was seen on 04/24/17. NOTE SUBJECTIVE: The patient is seen and examined in the room today. The patient does not have acute complaints. Denied any fever or chills. Denied any issues with urination. Denies any diarrhea. The patient has good oral intake. No overnight events reported. Discussed with patient that he may benefit from placement. He states he will consider the option. OBJECTIVE: VITAL SIGNS: Listed below. GENERAL: No sign of acute distress. Alert and oriented times three. HEENT: Normocephalic, atraumatic. Extraocular motor grossly intact. CARDIOVASCULAR: Positive S1, S2. Regular rate. LUNGS: Clear to auscultation bilaterally. ABDOMEN: Soft, nontender, nondistended. Bowel sounds present. EXTREMITIES: Arteriovenous (AV) fistula located at left upper extremity. No sign of edema. No sign of cyanosis. LABORATORY DATA: Listed below ASSESSMENT AND PLAN: 1. Recurrent falls secondary to deconditioning. The patient continues to work with physical therapy and occupational therapy for optimization. The patient may benefit from possible placement. We appreciate patient and family services (PFS) assistance. Physical therapy has not cleared the patient for discharge. 2. Leukocytosis. Initially, the patient has pseudomonas urinary tract infection (UTI). The patient's sample was performed on 04/09/2017. The patient was started on antibiotic treatment. Later, the patient continued to have fluctuation of the white blood cell count (WBC) in the last few days. The patient has persistent increase of the white blood cell count. Multiple blood cultures were obtained. Blood culture obtained on 04/09, 04/14, and both came back negative. Sputum culture was performed which also came back negative. Gastrointestinal (GI) panel and methicillin-resistant Staphylococcus aureus (MRSA) screen were also performed which showed negative results. Repeated urine culture performed on 04/18/2017, showed yeastlike organism. There is no pseudomonal organism detected. During this hospitalization, due to worsening white count, the patient was empirically started on vancomycin. It did help with the leukocytosis initially; however, later, the patient continued to have increased leukocytosis. Since 04/21/17, vanco and zysyn were discontinued. Patient continues to show improvement of WBC. Currently patient remains afebrile. No sign of active infection. 3. Chronic obstructive pulmonary disease (COPD), stable. No sign of exacerbation. The patient does not have any wheeze during physical exam. The patient is breathing comfortably on room air. 4. End-stage renal disease on hemodialysis. Nephrology has been assisting on the case. The patient's next hemodialysis schedule is on 04/24/2017. 5. Back pain. The patient did have imaging study performed. 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 There is no compelling imaging evidence for osseous metastasis. 6. Secondary hyperparathyroidism. 7. Positive occult blood test. The patient's hemoglobin and hematocrit have been stable. Per patient, currently the patient's stool is brownish. The patient may benefit from elective colonoscopy in the future. 8. History of lung cancer, status post right-sided pneumonectomy. 9. History of colon cancer, status post hemicolectomy. 10. Multiple bilateral ureteral stent exchanges. Done every three months [address] Ibrahim. 11. Yeast in the urine,s/p Diflucan treatment. 12. Deep venous thrombosis (DVT) prophylaxis on heparin. VS,Fishbone, I+O VS, Fishbone, I+O Laboratory Tests 04/24/17 05:59 Red Blood Count 3.20 L, Mean Corpuscular Volume 100.3 H, Mean Corpuscular Hemoglobin 32.8, Mean Corpuscular Hemoglobin Concent 32.7, Red Cell Distribution Width 14.0, Neutrophils (%) (Auto) 80.8 H, Lymphocytes (%) (Auto) 6.2 L, Monocytes (%) (Auto) 5.9 H, Eosinophils (%) (Auto) 2.6, Basophils (%) ( Auto) 0.7, Neutrophils # (Auto) 9.7 H, Lymphocytes # (Auto) 0.7 L, Monocytes # ( Auto) 0.7, Eosinophils # (Auto) 0.3, Basophils # (Auto) 0.1, Calcium Level 9.2, Aspartate Amino Transf (AST/SGOT) 18, Alanine Aminotransferase (ALT/SGPT) 14, Alkaline Phosphatase 56, Total Bilirubin 0.2, Total Protein 6.2 L, Albumin 2.3 L Vital Signs Date Time Temp Pulse Resp B/P (MAP) Pulse Ox O2 Delivery O2 Flow Rate FiO2 04/24/17 14:04 97.9 78 20 142/69 (93) 100 Room Air I&O- Last 24 Hours up to 6 AM 04/25/17 06:00 Intake Total 838 ml Balance 838 ml BENITEZ AMBROSIO DO Apr 24, 2017 17:30
[2017-04-24 21:10] VITALS: BP 140/72
[2017-04-24 22:00] VITALS: BP 136/68
[2017-04-25] MEDS: IPRATROPIUM 0.5MG/ALBUTEROL 2.5MG INH SOL UD 3ML (DUONEB)(J7620) NEB SCH ×4 (02:00→20:53)
[2017-04-25 06:00] VITALS: BP 134/65
[2017-04-25 06:07] LABS: BASO # 0.1 10^3/uL (0.0-0.2); EOS # 0.3 10^3/uL (0.0-0.50); EOS % 2.5 % (0.0-3.0); LYMPH # 0.6 10^3/uL (1.5-4.5); LYMPH % 5.7 % (24.0-44.0); MEAN CORPUSCULAR HEMOGLOBIN 32.7 pg (27.0-33.0); MEAN CORPUSCULAR HGB CONC 32.7 g/dl (32.0-36.5); MONO % 8.7 % (0.0-5.0); NEUTROPHILS # 8.6 10^3/uL (1.8-7.7); NEUTROPHILS % 78.1 % (36.0-66.0); PLATELET COUNT, AUTOMATED 379 10^3/uL (150-450)
[2017-04-25 06:27] LABS: ALBUMIN 2.4 GM/DL (3.2-5.2); ALBUMIN/GLOBULIN RATIO 0.59 (1.00-1.93); BILIRUBIN,TOTAL 0.3 MG/DL (0.2-1.0); CALCIUM LEVEL 8.8 MG/DL (8.8-10.2); CREATININE FOR GFR 2.25 MG/DL (0.70-1.30); GLOMERULAR FILTRATION RATE 29.4 (>35); POTASSIUM SERUM 4.1 MEQ/L (3.5-5.1); TOTAL PROTEIN 6.5 GM/DL (6.4-8.2)
[2017-04-25 11:09] VITALS: BP 129/60
--- NOTE | 2017-04-25 11:15 | IPN ---
DATE: 04/25/2017 Mr. Combs is seen this morning on his bedside. He is sitting in the chair and just finished eating his breakfast. He feels well and denies any complaints at present. He underwent hemodialysis yesterday which he tolerated reasonably well. The patient denies any fever, chills, nausea or vomiting. He has no dyspnea or chest pain. PHYSICAL EXAMINATION: Temperature 98 degrees Fahrenheit, heart rate 70 per minute and respiratory rate 18 per minute. Blood pressure 134/65 mmHg and oxygen saturation 98% on room air. Head: Is atraumatic. Neck is supple and without JVD or thyroid enlargement. Pupils equal and reactive to light and sclera is anicteric. Heart sounds are regular and lungs with diminished breath sounds at the left base. There are marked diminished breath sounds on the right side. He has history of right pneumonectomy. Abdomen is soft and nontender and bowel sounds are present. Extremities have no cyanosis or clubbing. Left arm AV fistula is present. Neurologically he is awake, alert and oriented times three. Today's labs show WBC count 11.0, hemoglobin 11.0 and hematocrit 33.6. Sodium 140 and potassium 4.1. BUN 17 and creatinine 2.25. PROBLEMS: 1. End-stage renal disease: The patient underwent hemodialysis yesterday. His next dialysis will be scheduled for April 26, 2017. At this point his electrolytes are all stable and volume status is well-compensated. 2. Anemia: His anemia is stable and does not need any intervention. 3. Leukocytosis: This is improving nicely since his antibiotics were stopped. He has been afebrile and no intervention is indicated. 4. Generalized weakness and deconditioning: The patient continues with physical therapy. He is likely to require long-term group home placement or subacute rehab. From renal standpoint, the patient is ready for discharge.
[2017-04-25] MEDS: FERROUS GLUCONATE 324 MG TAB PO SCH ×2 (11:58→21:30)
[2017-04-25] MEDS: METOPROLOL TART 25 MG TABLET PO SCH ×2 (12:00→21:29)
[2017-04-25] MEDS: VITAMIN D 1,000 INTERNATIONAL UNITS TABLET PO SCH (12:00)
[2017-04-25] MEDS: SENOKOT S TAB PO SCH ×2 (12:00→21:29)
[2017-04-25] MEDS: LACTOBACILLUS ACIDOPHILUS CAP (BACID) PO SCH ×2 (12:01→21:30)
[2017-04-25] MEDS: VITAMIN B COMPLEX/VIT C CAP PO SCH (12:01)
[2017-04-25] MEDS: KETOCONAZOLE 2% CREAM TOP SCH ×2 (12:03→21:30)
[2017-04-25] MEDS: PANTOPRAZOLE 20 MG TAB PO SCH (12:27)
[2017-04-25] MEDS: HEPARIN SOD (PORCINE) 5000 UNITS/ML VIAL SQ SCH ×2 (13:10→21:30)
[2017-04-25 14:00] VITALS: BP 124/60
--- NOTE | 2017-04-25 18:29 | IPNPDOC ---
Text Note Date of Service The patient was seen on 04/25/17. NOTE The patient is seen and examined in the room today. The patient does not have acute complaints. Denied any fever or chills. Denied any issues with urination. Denies any diarrhea. The patient has good oral intake. No overnight events reported. Patient states he is DNR/DNI. The son has copy of MOLST form. He will ask the son to bring it to hospital. OBJECTIVE: VITAL SIGNS: Listed below. GENERAL: No sign of acute distress. Alert and oriented times three. HEENT: Normocephalic, atraumatic. Extraocular motor grossly intact. CARDIOVASCULAR: Positive S1, S2. Regular rate. LUNGS: Clear to auscultation bilaterally. ABDOMEN: Soft, nontender, nondistended. Bowel sounds present. EXTREMITIES: Arteriovenous (AV) fistula located at left upper extremity. No sign of edema. No sign of cyanosis. LABORATORY DATA: Listed below ASSESSMENT AND PLAN: 1. Recurrent falls secondary to deconditioning. The patient continues to work with physical therapy and occupational therapy for optimization. The patient may benefit from possible placement. We appreciate patient and family services (PFS) assistance. Physical therapy has not cleared the patient for discharge. 2. Leukocytosis. Initially, the patient has pseudomonas urinary tract infection (UTI). The patient's sample was performed on 04/09/2017. The patient was started on antibiotic treatment. Later, the patient continued to have fluctuation of the white blood cell count (WBC) in the last few days. The patient has persistent increase of the white blood cell count. Multiple blood cultures were obtained. Blood culture obtained on 04/09, 04/14, and both came back negative. Sputum culture was performed which also came back negative. Gastrointestinal (GI) panel and methicillin-resistant Staphylococcus aureus (MRSA) screen were also performed which showed negative results. Repeated urine culture performed on 04/18/2017, showed yeastlike organism. There is no pseudomonal organism detected. During this hospitalization, due to worsening white count, the patient was empirically started on vancomycin. It did help with the leukocytosis initially; however, later, the patient continued to have increased leukocytosis. Since 04/21/17, vanco and zysyn were discontinued. Patient continues to show improvement of WBC. Currently patient remains afebrile. No sign of active infection. 3. Chronic obstructive pulmonary disease (COPD), stable. No sign of exacerbation. The patient does not have any wheeze during physical exam. The patient is breathing comfortably on room air. 4. End-stage renal disease on hemodialysis. Nephrology has been assisting on the case. The patient's next hemodialysis schedule is on 04/26/2017. 5. Back pain. The patient did have imaging study performed. 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 There is no compelling imaging evidence for osseous metastasis. 6. Secondary hyperparathyroidism. 7. Positive occult blood test. The patient's hemoglobin and hematocrit have been stable. Per patient, currently the patient's stool is brownish. The patient may benefit from elective colonoscopy in the future. 8. History of lung cancer, status post right-sided pneumonectomy. 9. History of colon cancer, status post hemicolectomy. 10. Multiple bilateral ureteral stent exchanges. Done every three months by Dr[address] Ibrahim. 11. Yeast in the urine, s/p Diflucan treatment. 12. Deep venous thrombosis (DVT) prophylaxis on heparin. VS,Fishbone, I+O VS, Fishbone, I+O Laboratory Tests 04/25/17 05:48 Red Blood Count 3.36 L, Mean Corpuscular Volume 100.0 H, Mean Corpuscular Hemoglobin 32.7, Mean Corpuscular Hemoglobin Concent 32.7, Red Cell Distribution Width 14.0, Neutrophils (%) (Auto) 78.1 H, Lymphocytes (%) (Auto) 5.7 L, Monocytes (%) (Auto) 8.7 H, Eosinophils (%) (Auto) 2.5, Basophils (%) ( Auto) 1.0, Neutrophils # (Auto) 8.6 H, Lymphocytes # (Auto) 0.6 L, Monocytes # ( Auto) 1.0 H, Eosinophils # (Auto) 0.3, Basophils # (Auto) 0.1 04/25/17 05:49 Calcium Level 8.8, Aspartate Amino Transf (AST/SGOT) 18, Alanine Aminotransferase (ALT/SGPT) 15, Alkaline Phosphatase 66, Total Bilirubin 0.3, Total Protein 6.5, Albumin 2.4 L Vital Signs Date Time Temp Pulse Resp B/P (MAP) Pulse Ox O2 Delivery O2 Flow Rate FiO2 04/25/17 14:00 98.1 84 20 124/60 (81) 98 Room Air I&O- Last 24 Hours up to 6 AM 04/26/17 06:00 Intake Total 580 ml Output Total 150 ml Balance 430 ml BENITEZ AMBROSIO DO Apr 25, 2017 18:29
[2017-04-25 22:00] VITALS: BP 150/72
[2017-04-26] MEDS: IPRATROPIUM 0.5MG/ALBUTEROL 2.5MG INH SOL UD 3ML (DUONEB)(J7620) NEB SCH ×3 (01:26→14:00)
[2017-04-26 06:00] VITALS: BP 124/69
[2017-04-26] MEDS: LACTOBACILLUS ACIDOPHILUS CAP (BACID) PO SCH ×2 (06:31→21:40)
[2017-04-26] MEDS: FERROUS GLUCONATE 324 MG TAB PO SCH ×2 (06:31→21:41)
[2017-04-26] MEDS: VITAMIN B COMPLEX/VIT C CAP PO SCH (06:31)
[2017-04-26] MEDS: VITAMIN D 1,000 INTERNATIONAL UNITS TABLET PO SCH (06:31)
[2017-04-26] MEDS: PANTOPRAZOLE 20 MG TAB PO SCH (06:31)
[2017-04-26] MEDS: SENOKOT S TAB PO SCH ×2 (06:31→21:41)
[2017-04-26] MEDS: METOPROLOL TART 25 MG TABLET PO SCH ×2 (06:32→21:40)
[2017-04-26] MEDS: KETOCONAZOLE 2% CREAM TOP SCH ×2 (06:32→21:40)
[2017-04-26] MEDS: HEPARIN SOD (PORCINE) 5000 UNITS/ML VIAL SQ SCH ×2 (06:32→21:39)
[2017-04-26 06:51] LABS: BASO # 0.1 10^3/uL (0.0-0.2); BASO % 0.8 % (0.0-1.0); EOS # 0.3 10^3/uL (0.0-0.50); EOS % 2.8 % (0.0-3.0); IMMATURE GRANULOCYTE % 4.3 % (0-0); LYMPH # 0.8 10^3/uL (1.5-4.5); LYMPH % 6.9 % (24.0-44.0); MEAN CORPUSCULAR HEMOGLOBIN 32.5 pg (27.0-33.0); MEAN CORPUSCULAR HGB CONC 32.2 g/dl (32.0-36.5); MEAN CORPUSCULAR VOLUME 100.9 fl (80.0-96.0); MONO # 1.1 10^3/uL (0.0-0.8); MONO % 9.4 % (0.0-5.0); NEUTROPHILS # 9.1 10^3/uL (1.8-7.7); NEUTROPHILS % 75.8 % (36.0-66.0); PLATELET COUNT, AUTOMATED 362 10^3/uL (150-450); RED CELL DISTRIBUTION WIDTH 14.2 % (11.5-14.5)
[2017-04-26 07:20] LABS: ALBUMIN 2.4 GM/DL (3.2-5.2); ALBUMIN/GLOBULIN RATIO 0.62 (1.00-1.93); BILIRUBIN,TOTAL 0.2 MG/DL (0.2-1.0); CREATININE FOR GFR 3.55 MG/DL (0.70-1.30); GLOMERULAR FILTRATION RATE 17.4 (>35); POTASSIUM SERUM 4.8 MEQ/L (3.5-5.1); TOTAL PROTEIN 6.3 GM/DL (6.4-8.2)
--- NOTE | 2017-04-26 10:55 | IPN ---
DATE OF SERVICE: 04/26/2017 Mr. Combs is seen this morning on his bedside. He is laying in the bed without any distress. He denies any nausea, vomiting or dyspnea. He is weak and not able to ambulate much. He is waiting for possible placement. PHYSICAL EXAMINATION: Temperature 98.5 degrees Fahrenheit, heart rate 70 per minute and respiratory rate 18 per minute. Blood pressure 124/70 mmHg and oxygen saturation 96% on room air. His head is atraumatic. Neck is supple and without JVD or thyroid enlargement. Pupils equal and reactive to light and sclera is anicteric. Nose and throat are unremarkable. Heart sounds are irregular in rhythm. There is no pericardial friction rub. Lungs with markedly diminished breath sounds on right side due to prior pneumonectomy. Left side sounds clear. Abdomen soft and nontender and bowel sounds are present. Extremities have no cyanosis or clubbing. Left forearm AV fistula is patent. Neurologically he is awake, alert and at his baseline mentation. Skin has no rash or ulcers. Today's labs show WBC count 12.0, hemoglobin 10.6 and hematocrit 32.9. Sodium 139 and potassium 4.8. BUN 40 and creatinine 3.55. PROBLEMS: 1. End-stage renal disease. The patient is regularly dialyzed on Sunday, Sunday and Sunday schedule. In the hospital, his schedule has been disturbed and he will be dialyzed late this afternoon. 2. Anemia. His anemia has been stable and does not need any intervention. 3. Generalized weakness and deconditioning. The patient remains weak and is likely to require subacute rehabilitation retirement placement. 4. Hypertension. Blood pressure is well-controlled on current antihypertensive medications. 5. Urinary tract infection (UTI). The patient has been treated for UTI and now she is not on any antibiotics at present.
[2017-04-26] MEDS ORDERED: LIDOCAINE 1% SDV 5 ML VIAL SQ ONE (13:30)
[2017-04-26] MEDS ORDERED: HEPARIN 1,000 UNITS/ML 10ML VIAL (FOR RADIOLOGY& DIALYSIS ONLY) IV ONE (13:30)
[2017-04-26 14:00] VITALS: BP 149/67
--- NOTE | 2017-04-26 15:09 | IPNPDOC ---
Text Note Date of Service The patient was seen on 04/26/17. NOTE The patient is seen and examined in the room today. No overnight events reported. Patient denies SOB, urinary complain or bowel movement issue. OBJECTIVE: VITAL SIGNS: Listed below. GENERAL: No sign of acute distress. Alert and oriented times three. HEENT: Normocephalic, atraumatic. Extraocular motor grossly intact. CARDIOVASCULAR: Positive S1, S2. Regular rate. LUNGS: Clear to auscultation bilaterally. ABDOMEN: Soft, nontender, nondistended. Bowel sounds present. EXTREMITIES: Arteriovenous (AV) fistula located at left upper extremity. No sign of edema. No sign of cyanosis. LABORATORY DATA: Listed below ASSESSMENT AND PLAN: 1. Recurrent falls secondary to deconditioning. The patient continues to work with physical therapy and occupational therapy for optimization. The patient may benefit from possible placement. We appreciate patient and family services (PFS) assistance. Physical therapy has not cleared the patient for discharge. 2. Leukocytosis. Initially, the patient has pseudomonas urinary tract infection (UTI). The patient's sample was performed on 04/09/2017. The patient was started on antibiotic treatment. Later, the patient continued to have fluctuation of the white blood cell count (WBC) in the last few days. The patient has persistent increase of the white blood cell count. Multiple blood cultures were obtained. Blood culture obtained on 04/09, 04/14, and both came back negative. Sputum culture was performed which also came back negative. Gastrointestinal (GI) panel and methicillin-resistant Staphylococcus aureus (MRSA) screen were also performed which showed negative results. Repeated urine culture performed on 04/18/2017, showed yeastlike organism. There is no pseudomonal organism detected. During this hospitalization, due to worsening white count, the patient was empirically started on vancomycin. It did help with the leukocytosis initially; however, later, the patient continued to have increased leukocytosis. Since 04/21/17, vanco and zysyn were discontinued. Patient continues to show improvement of WBC. Currently patient remains afebrile. No sign of active infection. 3. Chronic obstructive pulmonary disease (COPD), stable. No sign of exacerbation. The patient does not have any wheeze during physical exam. The patient is breathing comfortably on room air. 4. End-stage renal disease on hemodialysis. Nephrology has been assisting on the case. Today is patient HD today 5. Back pain. The patient did have imaging study performed. 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 There is no compelling imaging evidence for osseous metastasis. 6. Secondary hyperparathyroidism. 7. Positive occult blood test. The patient's hemoglobin and hematocrit have been stable. The patient may benefit from elective colonoscopy in the future. 8. History of lung cancer, status post right-sided pneumonectomy. 9. History of colon cancer, status post hemicolectomy. 10. Multiple bilateral ureteral stent exchanges. Done every three months [address] Dr[address] Ibrahim. 11. Yeast in the urine, s/p Diflucan treatment. 12. Deep venous thrombosis (DVT) prophylaxis on heparin. VS,Fishbone, I+O VS, Fishbone, I+O Laboratory Tests 04/26/17 06:18 Red Blood Count 3.26 L, Mean Corpuscular Volume 100.9 H, Mean Corpuscular Hemoglobin 32.5, Mean Corpuscular Hemoglobin Concent 32.2, Red Cell Distribution Width 14.2, Neutrophils (%) (Auto) 75.8 H, Lymphocytes (%) (Auto) 6.9 L, Monocytes (%) (Auto) 9.4 H, Eosinophils (%) (Auto) 2.8, Basophils (%) ( Auto) 0.8, Neutrophils # (Auto) 9.1 H, Lymphocytes # (Auto) 0.8 L, Monocytes # ( Auto) 1.1 H, Eosinophils # (Auto) 0.3, Basophils # (Auto) 0.1, Calcium Level 9.0 , Aspartate Amino Transf (AST/SGOT) 15, Alanine Aminotransferase (ALT/SGPT) 15, Alkaline Phosphatase 61, Total Bilirubin 0.2, Total Protein 6.3 L, Albumin 2.4 L Vital Signs Date Time Temp Pulse Resp B/P (MAP) Pulse Ox O2 Delivery O2 Flow Rate FiO2 04/26/17 14:00 97.5 70 20 149/67 (94) 98 Room Air I&O- Last 24 Hours up to 6 AM 04/27/17 06:00 Intake Total 720 ml Balance 720 ml BENITEZ AMBROSIO DO Apr 26, 2017 15:09
[2017-04-26 22:00] VITALS: BP 129/65
[2017-04-27] MEDS: IPRATROPIUM 0.5MG/ALBUTEROL 2.5MG INH SOL UD 3ML (DUONEB)(J7620) NEB SCH ×6 (00:04→23:37)
[2017-04-27 06:00] VITALS: BP 125/58
[2017-04-27 06:13] LABS: BASO # 0.1 10^3/uL (0.0-0.2); BASO % 0.9 % (0.0-1.0); EOS # 0.4 10^3/uL (0.0-0.50); EOS % 3.2 % (0.0-3.0); IMMATURE GRANULOCYTE % 3.3 % (0-0); LYMPH # 0.8 10^3/uL (1.5-4.5); LYMPH % 6.9 % (24.0-44.0); MEAN CORPUSCULAR HEMOGLOBIN 33.2 pg (27.0-33.0); MEAN CORPUSCULAR VOLUME 100.6 fl (80.0-96.0); MONO # 1.1 10^3/uL (0.0-0.8); MONO % 9.5 % (0.0-5.0); NEUTROPHILS # 8.8 10^3/uL (1.8-7.7); NEUTROPHILS % 76.2 % (36.0-66.0); PLATELET COUNT, AUTOMATED 316 10^3/uL (150-450); RED CELL DISTRIBUTION WIDTH 14.3 % (11.5-14.5); WHITE BLOOD COUNT 11.6 10^3/uL (4.0-10.0)
[2017-04-27 06:31] LABS: ALBUMIN 2.5 GM/DL (3.2-5.2); ALBUMIN/GLOBULIN RATIO 0.61 (1.00-1.93); BILIRUBIN,TOTAL 0.3 MG/DL (0.2-1.0); CALCIUM LEVEL 8.9 MG/DL (8.8-10.2); CREATININE FOR GFR 2.21 MG/DL (0.70-1.30); POTASSIUM SERUM 4.2 MEQ/L (3.5-5.1); TOTAL PROTEIN 6.6 GM/DL (6.4-8.2)
[2017-04-27] MEDS: PANTOPRAZOLE 20 MG TAB PO SCH (06:51)
[2017-04-27] MEDS: SENOKOT S TAB PO SCH ×2 (09:00→21:22)
[2017-04-27] MEDS: VITAMIN D 1,000 INTERNATIONAL UNITS TABLET PO SCH (10:12)
[2017-04-27] MEDS: VITAMIN B COMPLEX/VIT C CAP PO SCH (10:12)
[2017-04-27] MEDS: METOPROLOL TART 25 MG TABLET PO SCH ×2 (10:12→21:23)
[2017-04-27] MEDS: FERROUS GLUCONATE 324 MG TAB PO SCH ×2 (10:13→21:22)
[2017-04-27] MEDS: LACTOBACILLUS ACIDOPHILUS CAP (BACID) PO SCH ×2 (10:13→21:22)
[2017-04-27] MEDS: HEPARIN SOD (PORCINE) 5000 UNITS/ML VIAL SQ SCH ×2 (10:14→21:22)
[2017-04-27] MEDS: KETOCONAZOLE 2% CREAM TOP SCH ×2 (10:14→21:00)
--- NOTE | 2017-04-27 12:08 | IPN ---
DATE OF VISIT: 04/27/2017 Mr. Combs is seen this morning on his bedside. He is working with the physical therapist and walked in the hallway a very short distance. He remains very weak. He underwent hemodialysis late afternoon yesterday which he tolerated well. The patient denies any nausea or vomiting. He has chronic dyspnea is unchanged due to right pneumonectomy. On physical examination, temperature 97.7 degrees Fahrenheit, heart rate 84 per minute and respiratory rate 18 per minute. Blood pressure 120/60 mmHg and oxygen saturation 96% on room air. His head is atraumatic. Neck supple and without jugular venous distention (JVD) or thyroid enlargement. Ears, nose and throat are unremarkable. Lungs with diminished breath sounds on the right side and clear on the left. Heart sounds are irregular rhythm. Abdomen: Soft and nontender. Bowel sounds are present. There is no palpable organomegaly. Extremities have no cyanosis or clubbing. Left forearm AV fistula is patent. Today's labs show WBC count 11.6, hemoglobin 10.7 and hematocrit 32.4. Platelets 316. Sodium 140 and potassium 4.2. BUN is 19 and creatinine 2.21. PROBLEMS: 1. End-stage renal disease. The patient underwent hemodialysis late yesterday afternoon. We will plan to dialyze him again tomorrow. 2. Anemia. His anemia is stable and does not need any intervention at this point. He receives Aranesp 100 mcg once a week. 3. Hypertension. Blood pressure is well-controlled on current antihypertensive medications. 4. Generalized weakness and deconditioning. The patient continues working with the physical therapist. He is likely to require long-term senior living placement or subacute rehabilitation.
[2017-04-27 14:00] VITALS: BP 128/61
--- NOTE | 2017-04-27 18:04 | IPNPDOC ---
Text Note Date of Service The patient was seen on 04/27/17. NOTE The patient is seen and examined in the room today. No overnight events reported. Patient denies SOB, urinary complain or bowel movement issue. Patient still has very functional status. He continues requiring assistance for daily activities. OBJECTIVE: VITAL SIGNS: Listed below. GENERAL: No sign of acute distress. Alert and oriented times three. HEENT: Normocephalic, atraumatic. Extraocular motor grossly intact. CARDIOVASCULAR: Positive S1, S2. Regular rate. LUNGS: Clear to auscultation bilaterally. ABDOMEN: Soft, nontender, nondistended. Bowel sounds present. EXTREMITIES: Arteriovenous (AV) fistula located at left upper extremity. No sign of edema. No sign of cyanosis. LABORATORY DATA: Listed below ASSESSMENT AND PLAN: 1. Recurrent falls secondary to deconditioning. The patient continues to work with physical therapy and occupational therapy for optimization. The patient may benefit from possible placement. We appreciate patient and family services (PFS) assistance. Physical therapy has not cleared the patient for discharge. 2. Leukocytosis. Initially, the patient has pseudomonas urinary tract infection (UTI). The patient's sample was performed on 04/09/2017. The patient was started on antibiotic treatment. Later, the patient continued to have fluctuation of the white blood cell count (WBC) in the last few days. The patient has persistent increase of the white blood cell count. Multiple blood cultures were obtained. Blood culture obtained on 04/09, 04/14, and both came back negative. Sputum culture was performed which also came back negative. Gastrointestinal (GI) panel and methicillin-resistant Staphylococcus aureus (MRSA) screen were also performed which showed negative results. Repeated urine culture performed on 04/18/2017, showed yeastlike organism. There is no pseudomonal organism detected. During this hospitalization, due to worsening white count, the patient was empirically started on vancomycin. It did help with the leukocytosis initially; however, later, the patient continued to have increased leukocytosis. Since 04/21/17, vanco and zysyn were discontinued. Patient continues to show improvement of WBC. Currently patient remains afebrile. No sign of active infection. 3. Chronic obstructive pulmonary disease (COPD), stable. No sign of exacerbation. The patient does not have any wheeze during physical exam. The patient is breathing comfortably on room air. 4. End-stage renal disease on hemodialysis. Nephrology has been assisting on the case. Patient will continue hemodialysis at scheduled time. 5. Back pain. The patient did have imaging study performed. 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 There is no compelling imaging evidence for osseous metastasis. 6. Secondary hyperparathyroidism. 7. Positive occult blood test. The patient's hemoglobin and hematocrit have been stable. The patient may benefit from elective colonoscopy in the future. 8. History of lung cancer, status post right-sided pneumonectomy. 9. History of colon cancer, status post hemicolectomy. 10. Multiple bilateral ureteral stent exchanges. Done every three months [address] Ibrahim. 11. Yeast in the urine, s/p Diflucan treatment. 12. Deep venous thrombosis (DVT) prophylaxis on heparin. VS,Fishbone, I+O VS, Fishbone, I+O Laboratory Tests 04/27/17 05:59 Red Blood Count 3.22 L, Mean Corpuscular Volume 100.6 H, Mean Corpuscular Hemoglobin 33.2 H, Mean Corpuscular Hemoglobin Concent 33.0, Red Cell Distribution Width 14.3, Neutrophils (%) (Auto) 76.2 H, Lymphocytes (%) (Auto) 6.9 L, Monocytes (%) (Auto) 9.5 H, Eosinophils (%) (Auto) 3.2 H, Basophils (%) ( Auto) 0.9, Neutrophils # (Auto) 8.8 H, Lymphocytes # (Auto) 0.8 L, Monocytes # ( Auto) 1.1 H, Eosinophils # (Auto) 0.4, Basophils # (Auto) 0.1, Calcium Level 8.9 , Aspartate Amino Transf (AST/SGOT) 18, Alanine Aminotransferase (ALT/SGPT) 19, Alkaline Phosphatase 68, Total Bilirubin 0.3, Total Protein 6.6, Albumin 2.5 L Vital Signs Date Time Temp Pulse Resp B/P (MAP) Pulse Ox O2 Delivery O2 Flow Rate FiO2 04/27/17 14:00 96.8 79 18 128/61 (83) 100 Room Air I&O- Last 24 Hours up to 6 AM 04/28/17 06:00 Intake Total 1220 ml Balance 1220 ml BENITEZ AMBROSIO DO Apr 27, 2017 18:04
[2017-04-27 22:00] VITALS: BP 137/63
[2017-04-28 06:00] VITALS: BP 137/63
[2017-04-28] MEDS: VITAMIN B COMPLEX/VIT C CAP PO SCH (06:07)
[2017-04-28] MEDS: VITAMIN D 1,000 INTERNATIONAL UNITS TABLET PO SCH (06:07)
[2017-04-28] MEDS: LACTOBACILLUS ACIDOPHILUS CAP (BACID) PO SCH ×2 (06:07→20:16)
[2017-04-28] MEDS: SENOKOT S TAB PO SCH ×2 (06:07→20:16)
[2017-04-28] MEDS: FERROUS GLUCONATE 324 MG TAB PO SCH ×2 (06:07→20:16)
[2017-04-28] MEDS: PANTOPRAZOLE 20 MG TAB PO SCH (06:07)
[2017-04-28] MEDS: METOPROLOL TART 25 MG TABLET PO SCH ×2 (06:09→20:16)
[2017-04-28 06:12] LABS: BASO # 0.1 10^3/uL (0.0-0.2); BASO % 0.7 % (0.0-1.0); EOS # 0.3 10^3/uL (0.0-0.50); EOS % 2.1 % (0.0-3.0); IMMATURE GRANULOCYTE % 2.7 % (0-0); LYMPH # 0.8 10^3/uL (1.5-4.5); LYMPH % 6.8 % (24.0-44.0); MEAN CORPUSCULAR HEMOGLOBIN 32.6 pg (27.0-33.0); MEAN CORPUSCULAR HGB CONC 31.9 g/dl (32.0-36.5); MEAN CORPUSCULAR VOLUME 102.4 fl (80.0-96.0); MONO # 1.1 10^3/uL (0.0-0.8); MONO % 9.2 % (0.0-5.0); NEUTROPHILS # 9.5 10^3/uL (1.8-7.7); NEUTROPHILS % 78.5 % (36.0-66.0); PLATELET COUNT, AUTOMATED 338 10^3/uL (150-450); RED CELL DISTRIBUTION WIDTH 14.5 % (11.5-14.5); WHITE BLOOD COUNT 12.2 10^3/uL (4.0-10.0)
[2017-04-28] MEDS: HEPARIN SOD (PORCINE) 5000 UNITS/ML VIAL SQ SCH ×2 (06:12→20:16)
[2017-04-28] MEDS: KETOCONAZOLE 2% CREAM TOP SCH ×2 (06:13→20:16)
[2017-04-28 06:35] LABS: ALBUMIN 2.5 GM/DL (3.2-5.2); ALBUMIN/GLOBULIN RATIO 0.61 (1.00-1.93); BILIRUBIN,TOTAL 0.2 MG/DL (0.2-1.0); CALCIUM LEVEL 9.4 MG/DL (8.8-10.2); CREATININE FOR GFR 3.3 MG/DL (0.70-1.30); GLOMERULAR FILTRATION RATE 18.9 (>35); POTASSIUM SERUM 4.6 MEQ/L (3.5-5.1); TOTAL PROTEIN 6.6 GM/DL (6.4-8.2)
[2017-04-28] MEDS: IPRATROPIUM 0.5MG/ALBUTEROL 2.5MG INH SOL UD 3ML (DUONEB)(J7620) NEB SCH ×4 (07:11→20:56)
[2017-04-28] MEDS ORDERED: LIDOCAINE 1% SDV 5 ML VIAL SQ ONE (11:30)
[2017-04-28] MEDS ORDERED: HEPARIN 1,000 UNITS/ML 10ML VIAL (FOR RADIOLOGY& DIALYSIS ONLY) IV ONE (11:30)
[2017-04-28 14:00] VITALS: BP 150/70
--- NOTE | 2017-04-28 14:20 | IPNPDOC ---
Text Note Date of Service The patient was seen on 04/28/17. NOTE The patient is seen and examined in the dialysis room today. He is tolerating dialysis well. No overnight events reported. Patient denies SOB, urinary complain or bowel movement issue. OBJECTIVE: VITAL SIGNS: Listed below. GENERAL: No sign of acute distress. Alert and oriented times three. HEENT: Normocephalic, atraumatic. Extraocular motor grossly intact. CARDIOVASCULAR: Positive S1, S2. Regular rate. LUNGS: Clear to auscultation bilaterally. ABDOMEN: Soft, nontender, nondistended. Bowel sounds present. EXTREMITIES: Arteriovenous (AV) fistula located at left upper extremity. No sign of edema. No sign of cyanosis. LABORATORY DATA: Listed below ASSESSMENT AND PLAN: 1. Recurrent falls secondary to deconditioning. The patient continues to work with physical therapy and occupational therapy for optimization. The patient may benefit from possible placement. We appreciate patient and family services (PFS) assistance. Physical therapy has not cleared the patient for discharge. Currently patient is waiting for placement. 2. Leukocytosis. Initially, the patient has pseudomonas urinary tract infection (UTI). The patient's sample was performed on 04/09/2017. The patient was started on antibiotic treatment. Later, the patient continued to have fluctuation of the white blood cell count (WBC) in the last few days. The patient has persistent increase of the white blood cell count. Multiple blood cultures were obtained. Blood culture obtained on 04/09, 04/14, and both came back negative. Sputum culture was performed which also came back negative. Gastrointestinal (GI) panel and methicillin-resistant Staphylococcus aureus (MRSA) screen were also performed which showed negative results. Repeated urine culture performed on 04/18/2017, showed yeastlike organism. There is no pseudomonal organism detected. During this hospitalization, due to worsening white count, the patient was empirically started on vancomycin. It did help with the leukocytosis initially; however, later, the patient continued to have increased leukocytosis. Since 04/21/17, vanco and zysyn were discontinued. Patient continues to show improvement of WBC. Currently patient remains afebrile. No sign of active infection. 3. Chronic obstructive pulmonary disease (COPD), stable. No sign of exacerbation. The patient does not have any wheeze during physical exam. The patient is breathing comfortably on room air. 4. End-stage renal disease on hemodialysis. Nephrology has been assisting on the case. Patient will continue hemodialysis at scheduled time. 5. Back pain. The patient did have imaging study performed. 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 There is no compelling imaging evidence for osseous metastasis. 6. Secondary hyperparathyroidism. 7. Positive occult blood test. The patient's hemoglobin and hematocrit have been stable. The patient may benefit from elective colonoscopy in the future. 8. History of lung cancer, status post right-sided pneumonectomy. 9. History of colon cancer, status post hemicolectomy. 10. Multiple bilateral ureteral stent exchanges. Done every three months [address] Ibrahim. 11. Yeast in the urine, s/p Diflucan treatment. 12. Deep venous thrombosis (DVT) prophylaxis on heparin. VS,Fishbone, I+O VS, Fishbone, I+O Laboratory Tests 04/28/17 05:59 Red Blood Count 3.34 L, Mean Corpuscular Volume 102.4 H, Mean Corpuscular Hemoglobin 32.6, Mean Corpuscular Hemoglobin Concent 31.9 L, Red Cell Distribution Width 14.5, Neutrophils (%) (Auto) 78.5 H, Lymphocytes (%) (Auto) 6.8 L, Monocytes (%) (Auto) 9.2 H, Eosinophils (%) (Auto) 2.1, Basophils (%) ( Auto) 0.7, Neutrophils # (Auto) 9.5 H, Lymphocytes # (Auto) 0.8 L, Monocytes # ( Auto) 1.1 H, Eosinophils # (Auto) 0.3, Basophils # (Auto) 0.1, Calcium Level 9.4 , Aspartate Amino Transf (AST/SGOT) 15, Alanine Aminotransferase (ALT/SGPT) 18, Alkaline Phosphatase 69, Total Bilirubin 0.2, Total Protein 6.6, Albumin 2.5 L Vital Signs Date Time Temp Pulse Resp B/P (MAP) Pulse Ox O2 Delivery O2 Flow Rate FiO2 04/28/17 09:00 Room Air 04/28/17 06:09 76 137/63 04/28/17 06:00 98.5 18 97 I&O- Last 24 Hours up to 6 AM 04/29/17 06:00 Intake Total 480 ml Output Total 1000 ml Balance -520 ml BENITEZ AMBROSIO DO Apr 28, 2017 14:20
--- NOTE | 2017-04-28 15:44 | IPN ---
DATE: 04/28/2017 The patient is seen this morning in hemodialysis, receiving his maintenance treatment without any acute issues. He feels well. Denies any complaints. VITAL SIGNS: Temperature 98.5, pulse 76, respiratory rate 18, blood pressure 137/63, saturating 97% on room air. Intake and output: Hemodialysis today removed 1000 mL ultrafiltration. Oral intake yesterday was 1850 mL. Weight in the bed scale today 63.7 kg. PHYSICAL EXAMINATION: The patient is seen on hemodialysis, comfortable. No acute distress. Awake, alert, oriented. HEAD AND NECK: Extraocular muscles are intact. He is edentulous. The neck is supple. CARDIAC: S1, S2. Radial pulses 2+. No edema in the extremities. LUNGS: Clear to auscultation bilaterally, and the patient is comfortable on room air. ABDOMEN: Soft, nontender. Positive bowel sounds. EXTREMITIES: There is an arteriovenous (AV) fistula in the left upper extremity with thrill and bruits. Lower extremities have no edema. SKIN: Warm. Normal turgor. NEUROLOGIC: Oriented without focal deficits. LABORATORY DATA: White count 12.2, hemoglobin 10.9, platelets 338. Sodium 140, potassium 4.6, bicarbonate 34, BUN 40, calcium 9.4 with an albumin of 2.5. Normal liver function tests (LFTs). Glucose 103. INPATIENT MEDICATIONS: Reviewed by myself and no change from prior. PROBLEMS: 1. End-stage renal disease, on hemodialysis. The patient was dialyzed today with 1 kg ultrafiltration. His regular maintenance scheduled is Sunday, Sunday, Sunday, and we plan to get him back on that. Next hemodialysis will be April 30. 2. Anemia. Patient's hemoglobin remains at goal, and he continues on Aranesp and oral iron supplement. 3. Hypertension. Blood pressure is at goal on metoprolol 25 mg by mouth twice a day. 4. Secondary hyperparathyroidism of renal origin. Patient's corrected calcium is a little high, 10.6. I will repeat a parathyroid hormone (PTH) and vitamin D on him. 5. Recurrent falls secondary to deconditioning. The patient is currently awaiting placement.
[2017-04-28 22:00] VITALS: BP 127/59
[2017-04-29 06:00] VITALS: BP 129/61
[2017-04-29 06:29] LABS: ALBUMIN 2.5 GM/DL (3.2-5.2); ALBUMIN/GLOBULIN RATIO 0.6 (1.00-1.93); BILIRUBIN,TOTAL 0.3 MG/DL (0.2-1.0); CREATININE FOR GFR 2.72 MG/DL (0.70-1.30); GLOMERULAR FILTRATION RATE 23.6 (>35); POTASSIUM SERUM 4.3 MEQ/L (3.5-5.1); TOTAL PROTEIN 6.7 GM/DL (6.4-8.2)
[2017-04-29] MEDS: VITAMIN B COMPLEX/VIT C CAP PO SCH (07:41)
[2017-04-29] MEDS: METOPROLOL TART 25 MG TABLET PO SCH ×2 (07:42→20:34)
[2017-04-29] MEDS: VITAMIN D 1,000 INTERNATIONAL UNITS TABLET PO SCH (07:43)
[2017-04-29] MEDS: HEPARIN SOD (PORCINE) 5000 UNITS/ML VIAL SQ SCH ×2 (07:43→20:27)
[2017-04-29] MEDS: LACTOBACILLUS ACIDOPHILUS CAP (BACID) PO SCH ×2 (07:43→20:27)
[2017-04-29] MEDS: SENOKOT S TAB PO SCH ×2 (07:43→20:27)
[2017-04-29] MEDS: FERROUS GLUCONATE 324 MG TAB PO SCH ×2 (07:43→20:27)
[2017-04-29] MEDS: PANTOPRAZOLE 20 MG TAB PO SCH (07:43)
[2017-04-29] MEDS: KETOCONAZOLE 2% CREAM TOP SCH ×2 (07:43→20:28)
[2017-04-29] MEDS: IPRATROPIUM 0.5MG/ALBUTEROL 2.5MG INH SOL UD 3ML (DUONEB)(J7620) NEB SCH ×4 (08:53→23:35)
--- NOTE | 2017-04-29 09:46 | REP ---
PORTABLE CHEST, ONE VIEW: HISTORY: Aspiration. COMPARISON: 04/17/2017 The patient is status post right pneumonectomy. There is shift of the mediastinal structures to the right. Pleural calcification is present in the right hemithorax. A calcified granuloma is present in the left lower lobe. Degenerative change is present in the shoulders. IMPRESSION: 1. The patient is status post right pneumonectomy. 2. Old granulomatous disease. Signed by Marek Chino MD 04/29/2017 09:53 A
--- NOTE | 2017-04-29 13:16 | IPNPDOC ---
Text Note Date of Service The patient was seen on 04/29/17. NOTE Subjective: Patient is an 87 year old male with a PMHx of ESRD on HD, COPD, Hx of Lung CA s/p R pneumonectomy, Hx of Colon CA s/p Hemicolectomy and frequent UTIs who presented to the ER after they had fallen at home. Patient was admitted to hospitalist service fo deconditioning and possible UTI. He received a 10 day course of Vancomycin and Zosyn. Patient was seen and examined at the bedside. Currently he has no complaints. He is seen sitting up in bed eating his breakfast. Objective: Vitals (See below) General: Lying in bed, no acute distress, comfortable, AAOx3 HEENT: NC, AT CVS: RRR, +S1S2 Lungs: Fair air entry b/l, -w/r/r Abdomen: Soft, ND, NT Extremities: - Edema, - Calf tenderness Assessment and plan: Frequent falls - likely 2/2 deconditioning; possibly 2/2 UTI - c/w Physical therapy and disposition depending on recommendations - PFS for possible placement options Leukocytosis - WBC count remains stable - No fevers reported - Urine culture 04/09: Pseudomonas Aeruginosa - Urine culture 04/18: Yeast like organisms - Blood cultures 04/09: Negative for 5 days - s/p Vancomycin and Zosyn (Competed 10 day course) - s/p Diflucan (Completed 7 day course) - Repeat UA / Urine Cx / Blood Cx - Currently off antibiotics; will continue to monitor COPD - no evidence of exacerbation at this time - c/w inhaled therapy; Duoneb ESRD on HD (TTS) - Nephrology following; appreciate their input Chronic back pain - c/w Tylenol PRN Secondary hyperparathyroidism Macrocytic anemia - Hg baseline of 12 - Hg remains stable - Positive fecal occult blood - Advised for colonoscopy as outpatient Hx of Colon CA - s/p hemicolectomy Hx of bilateral ureteral stents - s/p exchange with Dr. Ibrahim every 3 moths Vitamin D deficiency - c/w supplement GI prophylaxis / GERD - c/w Protonix BID DVT prophylaxis - c/w Heparin VS,Fishbone, I+O VS, Fishbone, I+O Laboratory Tests 04/29/17 05:40 Calcium Level 9.0, Aspartate Amino Transf (AST/SGOT) 16, Alanine Aminotransferase (ALT/SGPT) 17, Alkaline Phosphatase 64, Total Bilirubin 0.3, Total Protein 6.7, Albumin 2.5 L Vital Signs Date Time Temp Pulse Resp B/P (MAP) Pulse Ox O2 Delivery O2 Flow Rate FiO2 04/29/17 10:11 Room Air 04/29/17 07:42 76 128/55 04/29/17 06:00 98.1 16 100 I&O- Last 24 Hours up to 6 AM 04/30/17 06:00 Intake Total 120 ml Output Total 0 ml Balance 120 ml ANTONIO ANDUJAR MD Apr 29, 2017 12:48
[2017-04-29 14:00] VITALS: BP 117/57
[2017-04-29 22:00] VITALS: BP 129/60
[2017-04-30 06:00] VITALS: BP 124/59
[2017-04-30 06:19] LABS: ALBUMIN 2.5 GM/DL (3.2-5.2); ALBUMIN/GLOBULIN RATIO 0.69 (1.00-1.93); BILIRUBIN,TOTAL 0.4 MG/DL (0.2-1.0); CALCIUM LEVEL 9.2 MG/DL (8.8-10.2); CREATININE FOR GFR 3.98 MG/DL (0.70-1.30); GLOMERULAR FILTRATION RATE 15.2 (>35); POTASSIUM SERUM 4.6 MEQ/L (3.5-5.1); TOTAL PROTEIN 6.1 GM/DL (6.4-8.2)
[2017-04-30] MEDS: PANTOPRAZOLE 20 MG TAB PO SCH (06:36)
[2017-04-30] MEDS: VITAMIN D 1,000 INTERNATIONAL UNITS TABLET PO SCH (06:36)
[2017-04-30] MEDS: LACTOBACILLUS ACIDOPHILUS CAP (BACID) PO SCH ×2 (06:36→20:36)
[2017-04-30] MEDS: SENOKOT S TAB PO SCH ×2 (06:36→20:35)
[2017-04-30] MEDS: VITAMIN B COMPLEX/VIT C CAP PO SCH (06:36)
[2017-04-30] MEDS: FERROUS GLUCONATE 324 MG TAB PO SCH ×2 (06:36→20:35)
[2017-04-30] MEDS: METOPROLOL TART 25 MG TABLET PO SCH ×2 (06:37→20:36)
[2017-04-30] MEDS: HEPARIN SOD (PORCINE) 5000 UNITS/ML VIAL SQ SCH ×2 (06:37→20:35)
[2017-04-30] MEDS: KETOCONAZOLE 2% CREAM TOP SCH ×2 (06:38→20:36)
[2017-04-30] MEDS: IPRATROPIUM 0.5MG/ALBUTEROL 2.5MG INH SOL UD 3ML (DUONEB)(J7620) NEB SCH ×3 (07:24→20:00)
--- NOTE | 2017-04-30 11:06 | IPNPDOC ---
Text Note Date of Service The patient was seen on 04/30/17. NOTE Subjective: Patient is an 87 year old male with a PMHx of ESRD on HD, COPD, Hx of Lung CA s/p R pneumonectomy, Hx of Colon CA s/p Hemicolectomy and frequent UTIs who presented to the ER after they had fallen at home. Patient was admitted to hospitalist service fo deconditioning and possible UTI. He received a 10 day course of Vancomycin and Zosyn. Patient was seen and examined at the bedside. He is seen sitting up in bed. He denies any chest pain, shortness of breath, cough, abdominal pain, constipation or diarrhea. Objective: Vitals (See below) General: Lying in bed, no acute distress, comfortable, AAOx3 HEENT: NC, AT CVS: RRR, +S1S2 Lungs: Fair air entry b/l, -w/r/r Abdomen: Soft, ND, NT Extremities: - Edema, - Calf tenderness Assessment and plan: Frequent falls - likely 2/2 deconditioning; possibly 2/2 UTI - c/w Physical therapy and disposition depending on recommendations - PFS for possible placement options; will transition to [facility] today Leukocytosis - no identifiable source of infection - WBC count remains stable; remains afebrile - Urine culture 04/09: Pseudomonas Aeruginosa - Urine culture 04/18: Yeast like organisms - Blood cultures 04/09: Negative for 5 days - s/p Vancomycin and Zosyn (Competed 10 day course) - s/p Diflucan (Completed 7 day course) - Repeat UA / Urine Cx / Blood Cx 04/29: Pending - Currently off antibiotics; will continue to monitor COPD - no evidence of exacerbation at this time - c/w inhaled therapy; Duoneb ESRD on HD (TTS) - Nephrology following; appreciate their input Chronic back pain - c/w Tylenol PRN Secondary hyperparathyroidism Macrocytic anemia - Hg baseline of 12 - Hg remains stable - Positive fecal occult blood - Advised for colonoscopy as outpatient Hx of Colon CA - s/p hemicolectomy Hx of bilateral ureteral stents - s/p exchange with Dr. Ibrahim every 3 moths Vitamin D deficiency - c/w supplement GI prophylaxis / GERD - c/w Protonix BID DVT prophylaxis - c/w Heparin VS,Fishbone, I+O VS, Fishbone, I+O Laboratory Tests 04/30/17 05:19 Calcium Level 9.2, Aspartate Amino Transf (AST/SGOT) 18, Alanine Aminotransferase (ALT/SGPT) 19, Alkaline Phosphatase 74, Total Bilirubin 0.4, Total Protein 6.1 L, Albumin 2.5 L Vital Signs Date Time Temp Pulse Resp B/P (MAP) Pulse Ox O2 Delivery O2 Flow Rate FiO2 04/30/17 06:37 88 136/74 04/30/17 06:00 97.8 18 98 Room Air ANTONIO ANDUJAR MD Apr 30, 2017 11:06
[2017-04-30 14:00] VITALS: BP 128/57
[2017-04-30 22:00] VITALS: BP 141/63
[2017-05-01] MEDS: IPRATROPIUM 0.5MG/ALBUTEROL 2.5MG INH SOL UD 3ML (DUONEB)(J7620) NEB SCH ×4 (02:00→20:28)
[2017-05-01 06:00] VITALS: BP 123/59
[2017-05-01] MEDS: VITAMIN B COMPLEX/VIT C CAP PO SCH (06:03)
[2017-05-01] MEDS: LACTOBACILLUS ACIDOPHILUS CAP (BACID) PO SCH ×2 (06:03→20:13)
[2017-05-01] MEDS: SENOKOT S TAB PO SCH ×2 (06:04→20:13)
[2017-05-01] MEDS: FERROUS GLUCONATE 324 MG TAB PO SCH ×2 (06:04→20:14)
[2017-05-01] MEDS: VITAMIN D 1,000 INTERNATIONAL UNITS TABLET PO SCH (06:04)
[2017-05-01] MEDS: METOPROLOL TART 25 MG TABLET PO SCH ×2 (06:04→20:13)
[2017-05-01] MEDS: PANTOPRAZOLE 20 MG TAB PO SCH (06:53)
[2017-05-01] MEDS: KETOCONAZOLE 2% CREAM TOP SCH ×2 (08:00→20:15)
[2017-05-01] MEDS: HEPARIN SOD (PORCINE) 5000 UNITS/ML VIAL SQ SCH ×2 (08:00→20:14)
[2017-05-01] MEDS ORDERED: HEPARIN 1,000 UNITS/ML 10ML VIAL (FOR RADIOLOGY& DIALYSIS ONLY) IV ONE (10:15)
[2017-05-01] MEDS ORDERED: LIDOCAINE 1% SDV 5 ML VIAL SQ ONE (10:15)
[2017-05-01] MEDS ORDERED: IPRASOL4 NEB ×2 (10:24)
[2017-05-01] MEDS ORDERED: METO1TAB87 PO (10:24)
[2017-05-01] MEDS ORDERED: PANT20TA PO (10:24)
--- NOTE | 2017-05-01 16:33 | IPN ---
DATE: 05/01/2017 SUBJECTIVE: The patient is seen this morning on hemodialysis, tolerating his treatment well without any acute complaints. Reports that he feels well. He has discharge pending to [facility] tomorrow. I have coordinated his outpatient chronic hemodialysis with the dialysis nurse at his outpatient unit. VITAL SIGNS: Temperature 97.3, pulse 67, respiratory rate 18, blood pressure 123/59, saturating 97% on room air. INTAKE AND OUTPUT: Hemodialysis today removed 1000 mL ultrafiltration. Weight on the bed scale today is 63.3 kg. General: The patient is seen on hemodialysis, comfortable, in no acute distress, tolerating his treatment without issue. Extraocular eye muscles are intact. The oral mucosa is moist. Neck is supple. He is edentulous. Cardiac: S1, S2, 2+ radial pulses. No edema in the peripheries or in the dependent area. Lungs: Diminished breath sounds on the right side and clear on the left. Abdomen: Soft, nontender. Positive bowel sounds. Extremities: There is a left upper extremity AV fistula. Neurologic: He is appropriately interactive and conversational at his baseline mentation. Psychiatric: Appropriate mood and affect. Skin: warm, normal turgor, no rash LABORATORY: There are no new labs today. Most recent labs from 04/30/2017 show sodium 141, potassium 4.6, bicarbonate 28, glucose 93, calcium 9.2, normal AST, ALT. PROBLEMS: 1. End-stage renal disease. The patient was dialyzed today with 1000 mL ultrafiltration. He is off of his maintenance schedule of Sunday, Sunday, Sunday. His next dialysis will likely be as an outpatient Sunday,05/02/2017. I have communicated with the charge dialysis nurse. The patient will have a gentle treatment tomorrow with only 500 mL ultrafiltration in view of the fact that he was dialyzed today. He will subsequently be back on his Sunday, Sunday, Sunday (MWF) maintenance schedule. 2. Anemia. The patient's hemoglobin is at goal for end-stage renal disease, and he continues on Aranesp and oral iron supplement. 3. Hypertension. The patient's blood pressures are acceptable on current regimen and no changes are being made. 4. Generalized weakness and deconditioning. The patient is pending placement at [facility] [place]. 5. History of bilateral ureteral stents with chronic exchange. The patient will continue to followup with his urologist as an outpatient, Dr. Ibrahim, every 3 months. DISCHARGE PLANNING: The patient is stable for discharge on 05/02/2017 from a renal point of view. His chair time at the outpatient dialysis unit is 12:00 p.m. tomorrow and orders for hemodialysis have been communicated with the outpatient nursing staff. ORA
[2017-05-02] MEDS: IPRATROPIUM 0.5MG/ALBUTEROL 2.5MG INH SOL UD 3ML (DUONEB)(J7620) NEB SCH ×2 (01:53→07:28)
[2017-05-02 06:00] VITALS: BP 132/61
[2017-05-02] MEDS: VITAMIN B COMPLEX/VIT C CAP PO SCH (08:21)
[2017-05-02] MEDS: VITAMIN D 1,000 INTERNATIONAL UNITS TABLET PO SCH (08:21)
[2017-05-02] MEDS: PANTOPRAZOLE 20 MG TAB PO SCH (08:21)
[2017-05-02] MEDS: SENOKOT S TAB PO SCH (08:21)
[2017-05-02] MEDS: FERROUS GLUCONATE 324 MG TAB PO SCH (08:21)
[2017-05-02] MEDS: LACTOBACILLUS ACIDOPHILUS CAP (BACID) PO SCH (08:21)
[2017-05-02 08:22] VITALS: BP 132/61
[2017-05-02] MEDS: KETOCONAZOLE 2% CREAM TOP SCH (08:22)
[2017-05-02] MEDS: METOPROLOL TART 25 MG TABLET PO SCH (08:22)
[2017-05-02] MEDS: HEPARIN SOD (PORCINE) 5000 UNITS/ML VIAL SQ SCH (08:22)
--- NOTE | 2017-05-02 14:22 | DSES ---
DATE OF ADMISSION: 04/09/2017 DATE OF DISCHARGE: 05/02/2017 ATTENDING PHYSICIANS: MD Tameka Thacker DO Gurpreet Singh, MD DICTATED BY: Kalee Merino MD PRIMARY CARE PHYSICIAN: Vel Walker MD CONSULTING PHYSICIANS: Margaret Meehan MD CONDITION ON DISCHARGE: Stable. FINAL DIAGNOSIS: Frequent falls likely secondary to deconditioning, thought to be secondary to urinary tract infection. PROCEDURES: None. HISTORY OF PRESENT ILLNESS: Patient is an 87-year-old male with a past medical history of end stage renal disease on hemodialysis, chronic obstructive pulmonary disease (COPD), history of lung cancer status post right pneumonectomy, history of colon cancer, status post hemicolectomy and frequent urinary tract infections, who presented to the emergency room (ER) after he had fallen at home. The patient was admitted to the hospitalist service for deconditioning and possible urinary tract infection. HOSPITAL COURSE: 1. Frequent falls. Likely secondary to deconditioning possibly secondary to urinary tract infection. Continue with physical therapy and he has been accepted to a subacute rehab center. 2. Leukocytosis. Has been treated for infectious cause. WBC count does remain stable. Remains afebrile. Urine culture 04/09 was positive for Pseudomonas aeruginosa. Urine culture 04/18 was positive for yeastlike organism. Blood culture 04/09 was negative for five days. He is status post vancomycin and Zosyn for a 10 day course. He has also received Diflucan for a 7 day course. Repeat urine cultures on 04/29 revealed positive evidence of Pseudomonas, however he remains asymptomatic with likely colonization. No febrile episodes and is on hemodialysis. Will continue with antibiotics. 3. Chronic obstructive pulmonary disease (COPD). No evidence of exacerbation at this time. Continue inhaled therapy. 4. End stage renal disease on hemodialysis on Sunday, and Sunday. Nephrology is following. 5. Chronic back pain. Continue Tylenol as needed. 6. Macrocytic anemia. Hemoglobin at baseline and remains stable. Positive fecal occult blood test. Advised colonoscopy as an outpatient. 7. History of colon cancer status post colostomy. 8. History of bilateral ureteral stents status post exchange with Dr. Ibrahim every 3 months. 9. Vitamin D deficiency. Continue with supplementation. 10. Gastroesophageal reflux disease (GERD). Stable on Protonix twice a day. 12. Deep vein thrombosis (DVT) prophylaxis. Continue with heparin. DISCHARGE MEDICATIONS: The patient was discharged home on the following medications: - vitamin B complex one tablet by mouth daily - vitamin D3 10,000 units by mouth every week - vitamin D3 2000 units by mouth daily - ferrous gluconate 325 mg by mouth twice a day - ketoconazole one dose topically twice a day - nitrofurantoin 100 mg by mouth daily - Kalie-Bid probiotic one tablet by mouth twice a day New medications prescribed include: - albuterol nebulization every 6 hours as needed shortness of breath - metoprolol tartrate 25 mg by mouth twice a day - Protonix 20 mg by mouth daily DISCHARGE INSTRUCTIONS: Patient is advised to followup with his primary care provider, Dr. Vel Walker , as well as sales representative printing Dr. Margaret Meehan within the next seven days. He has been advised to remain compliant with treatment plan and medications. Return to the emergency room if he experiences any complications. Time spent on discharge greater than 35 minutes.
== END 2017-05-02 08:54 | DRG 91 ==
LOC: M ED 08:28 → M ED INP 13:11 → M MSPAV 14:19
PROVIDERS: ADMIT Hospitalist; ATTEND Internal Medicine
PROC: 5A1D70Z Performance of Urinary Filtration, Intermittent, Less than 6 Hours Per Day (ICD-10-PCS; principal; 2017-04-10)
DX: R29.6 Repeated falls (principal); N18.6 End stage renal disease; J44.0 Chronic obstructive pulmonary disease with (acute) lower respiratory infection; N25.81 Secondary hyperparathyroidism of renal origin; N39.0 Urinary tract infection, site not specified; Z66 Do not resuscitate; D63.1 Anemia in chronic kidney disease; B96.5 Pseudomonas (aeruginosa) (mallei) (pseudomallei) as the cause of diseases classified elsewhere; Z99.2 Dependence on renal dialysis; Z85.118 Personal history of other malignant neoplasm of bronchus and lung; Z87.440 Personal history of urinary (tract) infections; Z85.038 Personal history of other malignant neoplasm of large intestine; Z90.49 Acquired absence of other specified parts of digestive tract; Z90.2 Acquired absence of lung [part of]; Z79.899 Other long term (current) drug therapy; Z96.0 Presence of urogenital implants; Z87.891 Personal history of nicotine dependence; Z91.14 Patient's other noncompliance with medication regimen

== ENCOUNTER → 2017-05-03 | Outpatient (REF) ==
[~2017-05-03] MED LIST changes: +IPRASOL4 NEB; +KETO2CR TOP; +METO1TAB87 PO; +PANT20TA PO; +VITA-182 PO
[2017-05-03 10:55] LABS: MEAN CORPUSCULAR HEMOGLOBIN 32.8 pg (27.0-33.0); MEAN CORPUSCULAR VOLUME 102.5 fl (80.0-96.0); PLATELET COUNT, AUTOMATED 331 10^3/uL (150-450); RED CELL DISTRIBUTION WIDTH 14.9 % (11.5-14.5); WHITE BLOOD COUNT 8.2 10^3/uL (4.0-10.0)
[2017-05-03 11:40] LABS: CALCIUM LEVEL 9.1 MG/DL (8.8-10.2); CREATININE FOR GFR 2.97 MG/DL (0.70-1.30); GLOMERULAR FILTRATION RATE 21.3 (>35); POTASSIUM SERUM 3.9 MEQ/L (3.5-5.1)
--- NOTE | 2017-05-03 13:42 | REP ---
CHEST, ONE VIEW: HISTORY: Cough. COMPARISON: 04/29/2017. The patient is status post right pneumonectomy. There is shift of the mediastinal structures to the right. Pleural calcification is present in the right hemithorax. A calcified granuloma is present in the left lower lobe. Degenerative change is present in the shoulders. IMPRESSION: 1. The patient is status post right pneumonectomy. 2. Old granulomatous disease. Signed by Marek Chino MD 05/03/2017 01:45 P
== END ==
PROVIDERS: ATTEND Physician Assistant
DX: Z00.00 Encounter for general adult medical examination without abnormal findings (principal)

== ENCOUNTER 2017-05-11 14:20 | Inpatient (IN) | payer MEDICARE ==
[~2017-05-11] VITALS: Ht 175.3 cm; Wt 79.0 kg
[2017-05-11] MEDS ORDERED: RENATAB5 PO (14:51)
[2017-05-11] MEDS ORDERED: ACID1CAP PO (14:51)
[2017-05-11] MEDS ORDERED: ROBI30SU PO (14:51)
[2017-05-11] MEDS: METOPROLOL 5 MG/5 ML VIAL IV SCH ×2 (15:05→15:15)
[2017-05-11 15:11] LABS: BASO # 0.1 10^3/uL (0.0-0.2); BASO % 0.3 % (0.0-1.0); EOS # 0.1 10^3/uL (0.0-0.50); EOS % 0.5 % (0.0-3.0); IMMATURE GRANULOCYTE % 1.6 % (0-0); LYMPH # 0.4 10^3/uL (1.5-4.5); LYMPH % 2.6 % (24.0-44.0); MEAN CORPUSCULAR HEMOGLOBIN 32.5 pg (27.0-33.0); MEAN CORPUSCULAR HGB CONC 31.9 g/dl (32.0-36.5); MEAN CORPUSCULAR VOLUME 101.9 fl (80.0-96.0); MONO # 1.3 10^3/uL (0.0-0.8); MONO % 8.7 % (0.0-5.0); NEUTROPHILS # 13.3 10^3/uL (1.8-7.7); NEUTROPHILS % 86.3 % (36.0-66.0); PLATELET COUNT, AUTOMATED 344 10^3/uL (150-450); RED CELL DISTRIBUTION WIDTH 14.8 % (11.5-14.5); WHITE BLOOD COUNT 15.4 10^3/uL (4.0-10.0)
--- NOTE | 2017-05-11 15:12 | REP ---
Portable chest, single AP view, 02:54 p.m.: Comparison is 05/03/2017. There is a right pneumonectomy as previously. Calcified granuloma is again noted in the left costophrenic angle, unchanged. Left lung is otherwise clear and unchanged. Cardiac size cannot be assessed. 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 Impression: No acute cardiopulmonary findings. Signed by Chele Vora MD 05/11/2017 03:04 P
[2017-05-11 15:23] LABS: INR 1.18
[2017-05-11 15:33] LABS: ALBUMIN 2.7 GM/DL (3.2-5.2); ALBUMIN/GLOBULIN RATIO 0.59 (1.00-1.93); BILIRUBIN,DIRECT 0.2 MG/DL (0.0-0.2); BILIRUBIN,TOTAL 0.5 MG/DL (0.2-1.0); CREATININE FOR GFR 3.45 MG/DL (0.70-1.30); GLOMERULAR FILTRATION RATE 17.9 (>35); MAGNESIUM LEVEL 2.3 MG/DL (1.8-2.4); PHOSPHORUS LEVEL 2.9 MG/DL (2.5-4.9); POTASSIUM SERUM 3.3 MEQ/L (3.5-5.1); TOTAL PROTEIN 7.3 GM/DL (6.4-8.2)
[2017-05-11 15:39] LABS: FREE T4 1.57 NG/DL (0.76-1.46)
[2017-05-11] MEDS ORDERED: POTASSIUM CHLORIDE 10 MEQ SR TABLET PO ONE (16:00)
--- NOTE | 2017-05-11 18:14 | ECGEPIP ---
Stationary ECG Study [facility] - ED Test Date: 2017-05-11 Pat Name: TARUN OSORIO Department: Room: - Gender: M Impregnator: ct : 1930 Requested By: WILFREDO Martinez Order Number: [id number] Reading MD: Adore Razo Measurements Intervals [place] Rate: 126 P: MD: 0 QRS: 241 QRSD: 139 T: 27 QT: 312 QTc: 453 Interpretive Statements ATRIAL FIBRILLATION WITH RAPID VENTRICULAR RESPONSE MARKED RIGHT AXIS DEVIATION NSTTW ABNORMALITY RIGHT BUNDLE BRANCH BLOCK AND POSSIBLE RIGHT VENTRICULAR HYPERTROPHY ?PRIOR INFERIOR INFARCT INCREASED RATE 04/17/17 Electronically Signed On 05-11-2017 18:14:31 EST by Adore Razo
[2017-05-11] MEDS ORDERED: IPRASOL4 INH (18:28)
[2017-05-11] MEDS ORDERED: ACEP650S PR (18:28)
[2017-05-11] MEDS ORDERED: METO1TAB87 PO (18:28)
[2017-05-11] MEDS ORDERED: SUPECAP24 PO (18:28)
[2017-05-11] MEDS ORDERED: PANT20TA PO (18:28)
[2017-05-11] MEDS ORDERED: DEXT10SY2 PO (18:28)
[2017-05-11] MEDS ORDERED: MORP20SO SL (18:28)
[2017-05-11] MEDS ORDERED: ACET1TAB17 PO (18:28)
[2017-05-11] MEDS ORDERED: PROC5TA PO (18:28)
[2017-05-11] MEDS ORDERED: RISATAB3 PO (18:28)
[2017-05-11] MEDS ORDERED: ENEMENE16 PR (18:31)
[2017-05-11] MEDS ORDERED: DULC10SU2 PR (18:31)
[2017-05-11] MEDS ORDERED: VP-V1TAB PO (18:31)
--- NOTE | 2017-05-11 18:37 | HPEPDOC ---
[facility] Medical History & Physical History and Physical Primary care provider: Dr. Vel Walker, however he is under the care of Dr. Dawson Asher while he is at the [facility] for rehabilitation. Date of Admission: 05/11/2017 Attending: Dr. Adler CHIEF COMPLAINT: Weakness and altered mental status HISTORY OF PRESENT ILLNESS: Mr. Combs is an 87-year-old male who was recently hospitalized at [facility] from 04/09/2017 to 05/02/2017 for deconditioning thought to be secondary to urinary tract infection. He was then discharged to the [facility] for rehabilitation. While he was at dialysis today he did develop some altered mental status, apparently they felt that this may have been secondary to to aggressive diuresis during dialysis, therefore the majority of this was repleted, and the patient returned back to his baseline mental status. Upon arrival to the ED he was found to be in a new onset atrial fibrillation with rapid ventricular response and was treated with one dose of 5 mg Lopressor which did reduce his heart rate down into the 80s and 90s, however he is now in a new rhythm that appears to be an ectopic atrial rhythm with first -degree block and multiple PACs. His son and [id number] accompany him in the room in the ED and they believe that his generalized malaise and weakness may be due to the fact that he has not been eating much while at [facility] because he does not like being on the diet restriction of nectar thick liquids. ALLERGIES: No known drug allergies CODE STATUS: DNR/DNI PAST MEDICAL HISTORY: COPD History of lung cancer status post right pneumonectomy in the Frequent/chronic urinary tract infections End-stage renal disease on hemodialysis every Sunday Secondary hyperparathyroidism Anemia of chronic disease History of colon cancer status post hemicolectomy PAST SURGICAL HISTORY: Right pneumonectomy Bilateral hip surgery Right knee surgery Hemicolectomy Cholecystectomy Multiple bilateral ureteral stent exchanges every [address] Ibrahim SOCIAL HISTORY: Currently he is living at [facility] for rehabilitation. He quit smoking over 25 years ago, prior to that he smoked 2 pack per day for 20 years. He does not drink alcohol or use illicit drugs FAMILY HISTORY: Noncontributory secondary to patient's advanced age REVIEW OF SYSTEMS: Constitutional: Patient denies fevers, chills, night sweats, recent weight gain/ loss. He really only complains of generalized weakness at this time. HEENT: Patient denies blurred or double vision, transient visual disturbances, postnasal drip, epistaxis, sore throat, difficulty chewing or swallowing food. Cardiovascular: Patient denies chest discomfort/pain, palpitations, exertional dyspnea, orthopnea, edema of the extremities, claudication. Respiratory: Patient denies dyspnea, wheezing, cough, hemoptysis, sputum production. Gastrointestinal: Patient denies nausea, vomiting, diarrhea, constipation, abdominal pain, melena, hematochezia, hematemesis, jaundice. PHYSICAL EXAMINATION: General: Awake, alert. He is a little difficult to understand because of poor fitting dentures. Otherwise, he does not appear to be in any acute distress at this time. HEENT: Head normocephalic atraumatic, pupils equally reactive to light and accommodation, conjunctiva are pink, sclera are nonicteric, Hearing is grossly intact to conversation. He has no teeth, he is only wearing bottom dentures right now. Respiratory: No lung sounds on the right side, clear to auscultation on the left Cardiovascular: Distant heart sounds, difficult to appreciate any murmurs rubs or gallops Abdomen: Soft, nontender, nondistended, no hepatosplenomegaly appreciated. Bowel sounds present. Extremities: 2+ pulses in the radial and dorsalis pedis bilaterally. No evidence of clubbing or cyanosis. Dialysis graft in the left forearm ELECTROCARDIOGRAM: First EKG upon arrival to the ED showed atrial fibrillation with rapid ventricular response. Most recent shows ectopic atrial rhythm with first-degree block and multiple PACs. Otherwise, no gross changes in QRS morphology from IMAGING: Portable chest x-ray shows no acute changes ASSESSMENT: 1. New onset atrial fibrillation with rapid ventricular response 2. COPD 3. Frequent/chronic urinary tract infections 4. End-stage renal disease on hemodialysis every Sunday 5. Secondary hyperparathyroidism 6. Anemia of chronic disease 7. DVT prophylaxis with warfarin PLAN: Mr. Combs has returned to his baseline mental status as confirmed by the patient's son and [id number], and in speaking with the patient I do believe that he is quite lucid. His rate was controlled with one dose of Lopressor 5 mg IV, we will put him on metoprolol titrate 50 mg by mouth twice a day with hold parameters such that if his HR<60 or SBP<100 then he should only recieve his usual home dose of 25mg. We'll continue to monitor him on telemetry for the next 24 hours or so. Otherwise, I will continue the remainder of his home medications at their usual dose for his chronic conditions as listed. If he does not have any other acute events on telemetry, I suspect that this could be further worked up and handled as an outpatient, therefore he may be potentially sent back to [facility] either tomorrow or Sunday. My preceptor for this patient encounter was physically present in the building during the encounter and was fully available. As needed, all aspects of the patient interview, examination, medical decision making process, and medical care plan development were reviewed and approved by the preceptor. Preceptor is aware and concurs with the plan as stated in the body of this note and will attest to such by his/her cosignature. Vital Signs Vital Signs Date Time Temp Pulse Resp B/P (MAP) Pulse Ox O2 Delivery O2 Flow Rate FiO2 05/11/17 17:50 84 16 109/56 (73) 95 Nasal Cannula 2.0 05/11/17 16:30 98.1 Laboratory Data Labs 24H Laboratory Tests 2 05/11/17 14:58: Immature Granulocyte % (Auto) 1.6H, White Blood Count 15.4H, Red Blood Count 4.18L, Hemoglobin 13.6L, Hematocrit 42.6, Mean Corpuscular Volume 101.9H, Mean Corpuscular Hemoglobin 32.5, Mean Corpuscular Hemoglobin Concent 31.9L, Red Cell Distribution Width 14.8H, Platelet Count 344, Neutrophils (%) (Auto) 86.3H , Lymphocytes (%) (Auto) 2.6L, Monocytes (%) (Auto) 8.7H, Eosinophils (%) (Auto ) 0.5, Basophils (%) (Auto) 0.3, Neutrophils # (Auto) 13.3H, Lymphocytes # (Auto ) 0.4L, Monocytes # (Auto) 1.3H, Eosinophils # (Auto) 0.1, Basophils # (Auto) 0.1, Immature Granulocyte # (Auto) 0.2H, Nucleated Red Blood Cells % (auto) 0.0 , Prothrombin Time 15.2H, Prothromb Time International Ratio 1.18, Activated Partial Thromboplast Time 63.3H, Anion Gap 10, Glomerular Filtration Rate 17.9L , Calcium Level 9.0, Phosphorus Level 2.9, Magnesium Level 2.3, Aspartate Amino Transf (AST/SGOT) 12, Alanine Aminotransferase (ALT/SGPT) 13, Alkaline Phosphatase 124H, Total Bilirubin 0.5, Direct Bilirubin 0.2, Total Creatine Kinase 26L, Creatine Kinase MB 1.4, Creatine Kinase MB Relative Index 5.38H, Troponin I 0.04, PR-Mcx-S-Type Natriuretic Peptide 2136H, Total Protein 7.3, Albumin 2.7L, Albumin/Globulin Ratio 0.59L, Thyroid Stimulating Hormone (TSH) 0.352L, Free Thyroxine 1.57H CBC/BMP Laboratory Tests 05/11/17 14:58 Red Blood Count 4.18 L, Mean Corpuscular Volume 101.9 H, Mean Corpuscular Hemoglobin 32.5, Mean Corpuscular Hemoglobin Concent 31.9 L, Red Cell Distribution Width 14.8 H, Neutrophils (%) (Auto) 86.3 H, Lymphocytes (%) (Auto ) 2.6 L, Monocytes (%) (Auto) 8.7 H, Eosinophils (%) (Auto) 0.5, Basophils (%) ( Auto) 0.3, Neutrophils # (Auto) 13.3 H, Lymphocytes # (Auto) 0.4 L, Monocytes # (Auto) 1.3 H, Eosinophils # (Auto) 0.1, Basophils # (Auto) 0.1 Home Medications Scheduled (Kalie-Bid Probiotic) 1 Tab Tab, 1 TAB PO BID (Dextromethorphan/Guaifene 10-100 mg/5Ml) 1 Syp Syp, 5 ML PO Q6H (Super B-Complex) 1 Cap Cap, 1 CAP PO DAILY (Buyer Intern-Chris Rx 1 mg) 1 Tab Tab, 1 TAB PO DAILY Albuterol/Ipratropium (Ipratropium [place]/Albut 0.5-2.5 (3) mg/3Ml) 1 Bria Bria, 1 NEB INH Q4H 0000,0400,0800,1200,1600,2000 Cholecalciferol (Vitamin D3) 10,000 Unit Tab, 10,000 UNIT PO QWEEK 1900 ON SUNDAYS Cholecalciferol (Vitamin D3) 1,000 Unit Cap, 2,000 UNIT PO DAILY Ferrous Gluconate (Ferrous Gluconate) 324 Mg Tab, 324 MG PO BID Ketoconazole (Ketoconazole) 2 % Cre, 1 DOSE TOP BID APPLY TO FOREARMS Metoprolol Tartrate (Metoprolol Tartrate) 25 Mg Tab, 25 MG PO BID Nitrofurantoin Macrocrystals (Nitrofurantoin Macrocrystals) 100 Mg Cap, 100 MG PO DAILY Pantoprazole Sodium (Pantoprazole Sodium) 20 Mg Tab, 20 MG PO DAILY Scheduled PRN Acetaminophen (Acetaminophen) 325 Mg Tab, 650 MG PO Q4H PRN for PAIN Acetaminophen (Acephen) 650 Mg Sup, 650 MG WI Q4H PRN for PAIN OR FEVER Bisacodyl (Dulcolax) 10 Mg Sup, 10 MG WI DAILY PRN for CONSTIPATION Morphine Sulfate (Morphine Sulfate) 20 Mg/5 Ml Bria, 10 MG SL Q2H PRN for PAIN Prochlorperazine (Prochlorperazine Maleate) 5 Mg Tab, 5 MG PO Q6H PRN for NAUSEA Sodium Phosphate/Biphosphate (Enema 7-19 gm/118Ml) 1 Callie Callie, 1 CALLIE WI DAILY PRN for CONSTIPATION Allergies Coded Allergies: No Known Allergies (Verified , 01/04/17) CORDELIA SAWYER DO May 11, 2017 18:37 RAJESH ADLER MD May 12, 2017 12:55
[2017-05-11] MEDS ORDERED: MORPHINE SULFATE ORAL SOLN 10 MG/5 ML UD SL PRN (18:45)
[2017-05-11] MEDS ORDERED: FLEET ENEMA PR PRN (18:45)
[2017-05-11] MEDS ORDERED: ACETAMINOPHEN 650 MG SUPP PR PRN (18:45)
[2017-05-11] MEDS ORDERED: BISACODYL 10 MG SUPP PR PRN (18:45)
[2017-05-11] MEDS ORDERED: ACETAMINOPHEN TAB 650MG DOSE (2X325MG) PO PRN (18:45)
[2017-05-11] MEDS ORDERED: PROCHLORPERAZINE 5 MG TAB (S0183) PO PRN (18:45)
[2017-05-11 20:00] VITALS: BP 111/58
[2017-05-11] MEDS: KETOCONAZOLE 2% CREAM TOP SCH (20:22)
[2017-05-11] MEDS: LACTOBACILLUS ACIDOPHILUS CAP (BACID) PO SCH (20:22)
[2017-05-11] MEDS: FERROUS GLUCONATE 324 MG TAB PO SCH (20:22)
[2017-05-11] MEDS: guaiFENesin DM LIQ 10ML UD PO SCH ×2 (20:22→23:33)
[2017-05-11] MEDS: METOPROLOL TART 25 MG TABLET PO SCH (20:24)
[2017-05-11] MEDS ORDERED: METOPROLOL TART 25 MG TABLET PO SCH (21:00)
[2017-05-11] MEDS: IPRATROPIUM 0.5MG/ALBUTEROL 2.5MG INH SOL UD 3ML (DUONEB)(J7620) INH SCH ×2 (21:20→22:32)
[2017-05-12 00:09] VITALS: BP 123/60
[2017-05-12] MEDS: IPRATROPIUM 0.5MG/ALBUTEROL 2.5MG INH SOL UD 3ML (DUONEB)(J7620) INH SCH ×3 (02:38→11:29)
[2017-05-12 04:00] VITALS: BP 120/69
--- NOTE | 2017-05-12 04:34 | ECGEPIP ---
Stationary ECG Study [facility] - ED Test Date: 2017-05-11 Pat Name: TARUN OSORIO Department: Room: [place] [address] Gender: M Link Assembler: rica : 1930 Requested By: WILFREDO Martinez Order Number: [id number] Reading MD: Lusi Daniel Lopez Measurements Intervals [place] Rate: 83 P: -64 TN: 222 QRS: 265 QRSD: 146 T: 36 QT: 364 QTc: 429 Interpretive Statements SINUS RHYTHM WITH FIRST DEGREE AV BLOCK WITH FREQUENT SUPRAVENTRICULAR PREMATURE COMPLEXES LEFT ATRIAL ENLARGEMENT RIGHT AXIS DEVIATION RIGHT BUNDLE BRANCH BLOCK Electronically Signed On 05-12-2017 4:33:56 EST by Luis Daniel Lopez
[2017-05-12] MEDS: guaiFENesin DM LIQ 10ML UD PO SCH ×2 (06:04→12:25)
[2017-05-12 06:13] LABS: MEAN CORPUSCULAR HEMOGLOBIN 32.7 pg (27.0-33.0); MEAN CORPUSCULAR HGB CONC 32.7 g/dl (32.0-36.5); PLATELET COUNT, AUTOMATED 341 10^3/uL (150-450); RED CELL DISTRIBUTION WIDTH 14.6 % (11.5-14.5); WHITE BLOOD COUNT 15.9 10^3/uL (4.0-10.0)
[2017-05-12 06:42] LABS: ALBUMIN 2.3 GM/DL (3.2-5.2); ALBUMIN/GLOBULIN RATIO 0.55 (1.00-1.93); BILIRUBIN,TOTAL 0.6 MG/DL (0.2-1.0); CALCIUM LEVEL 8.7 MG/DL (8.8-10.2); CREATININE FOR GFR 4.49 MG/DL (0.70-1.30); GLOMERULAR FILTRATION RATE 13.2 (>35); MAGNESIUM LEVEL 2.3 MG/DL (1.8-2.4); POTASSIUM SERUM 3.3 MEQ/L (3.5-5.1); TOTAL PROTEIN 6.5 GM/DL (6.4-8.2)
[2017-05-12 08:00] VITALS: BP 119/69
[2017-05-12] MEDS: LACTOBACILLUS ACIDOPHILUS CAP (BACID) PO SCH (08:35)
[2017-05-12] MEDS: FERROUS GLUCONATE 324 MG TAB PO SCH (08:35)
[2017-05-12 08:36] VITALS: BP 119/69
[2017-05-12] MEDS: METOPROLOL TART 25 MG TABLET PO SCH (08:36)
[2017-05-12] MEDS: KETOCONAZOLE 2% CREAM TOP SCH (08:36)
[2017-05-12] MEDS ORDERED: NITROFURANTOIN (MACROBID) 100 MG CAP PO SCH (09:00)
[2017-05-12] MEDS ORDERED: VITAMIN D 1,000 INTERNATIONAL UNITS TABLET PO SCH (09:00)
[2017-05-12] MEDS ORDERED: PANTOPRAZOLE 20 MG TAB PO SCH (09:00)
[2017-05-12 12:00] VITALS: BP 104/61
--- NOTE | 2017-05-12 16:27 | DS.PDOC ---
Discharge Summary General Date of Admission May 11, 2017 Date of Discharge May 12, 2017 Discharge Summary PRIMARY CARE PHYSICIAN: Dr. Dawson Asher ATTENDING AT TIME OF DISCHARGE: Dr. Francisco DISCHARGE DIAGNOS(E)S: 1. New onset atrial fibrillation with rapid ventricular response 2. COPD 3. Frequent/chronic urinary tract infections 4. End-stage renal disease on hemodialysis every Sunday 5. Secondary hyperparathyroidism 6. Anemia of chronic disease 7. DVT prophylaxis with warfarin HPI & HOSPITAL COURSE: Mr. Combs is an 87-year-old male who was sent to the emergency department from dialysis. Apparently he suffered an episode of altered mental status while undergoing dialysis, and his MOLST form was not available at the dialysis center , therefore the ambulance was called. The patient is now completely lucid, he is able to make his own decisions, and his son is present in the room with him today. They both confirm that he is comfort measures only, and DNR/DNI, and does not wish to be transported to the hospital in the future. I contacted [facility] and they sent his actual/original MOLST form via telephone order supervisor and I confirmed that this is indeed true, therefore he will be returned back to [facility] at this time without any further interventions. PHYSICAL EXAMINATION ON DISCHARGE: GENERAL: Awake, alert, oriented. He is in no acute distress at this time. His only complaint is that of stiffness and soreness from the uncomfortable bed. CARDIOVASCULAR EXAMINATION: Distant heart sounds RESPIRATORY EXAMINATION: No lung sounds on the right side, clear to auscultation on the left ABDOMINAL EXAMINATION: Soft, nontender, nondistended. Bowel sounds present. EXTREMITIES: No clubbing or edema noted. 2+ pulses in the radial bilaterally. Dialysis graft left forearm DISPOSITION: [facility] DISCHARGE INSTRUCTIONS: Follow up with primary care provider Dr. Asher at [facility] within the next 1-2 weeks. If symptoms return, or if you experience worsening of your symptoms, please call your doctor or return to the emergency department. DISCHARGE MEDICATIONS: No change in home medications ITEMS THAT NEED OUTPATIENT FOLLOWUP: The patient is comfort measures only, no additional studies or interventions need be performed. Both the patient and the family have confirmed that this is the plan. My preceptor for this patient encounter was physically present in the building during the encounter and was fully available. As needed, all aspects of the patient interview, examination, medical decision making process, and medical care plan development were reviewed and approved by the preceptor. Preceptor is aware and concurs with the plan as stated in the body of this note and will attest to such by his/her cosignature. Vital Signs/I&Os Vital Signs Date Time Temp Pulse Resp B/P (MAP) Pulse Ox O2 Delivery O2 Flow Rate FiO2 05/12/17 12:00 97.5 96 20 104/61 (75) 96 Room Air 05/11/17 17:50 2.0 I&O- Last 24 Hours up to 6 AM 05/13/17 06:00 Intake Total 120 ml Balance 120 ml Laboratory Data Labs 24H Laboratory Tests 2 05/11/17 23:54: Total Creatine Kinase 29L, Creatine Kinase MB 1.5, Creatine Kinase MB Relative Index 5.17H, Troponin I 0.08# 05/12/17 05:41: Total Creatine Kinase 29L, Creatine Kinase MB 1.3, Creatine Kinase MB Relative Index 4.48H, Troponin I 0.07, Nucleated Red Blood Cells % (auto) 0.0, Anion Gap 8, Glomerular Filtration Rate 13.2L, Blood Urea Nitrogen 42H, Creatinine 4.49H, Sodium Level 141, Potassium Level 3.3L, Chloride Level 104, Carbon Dioxide Level 29, Calcium Level 8.7L, Aspartate Amino Transf (AST/SGOT) 12, Alanine Aminotransferase (ALT/SGPT) 10L, Alkaline Phosphatase 103, Total Bilirubin 0.6, Total Protein 6.5, Albumin 2.3L, Magnesium Level 2.3, Albumin/Globulin Ratio 0.55L, Thyroid Stimulating Hormone (TSH) 0.276L 05/12/17 12:00: Total Creatine Kinase 31L, Creatine Kinase MB 1.3, Creatine Kinase MB Relative Index 4.19H, Troponin I 0.05# CBC/BMP Laboratory Tests 05/12/17 05:41 Red Blood Count 3.85 L, Mean Corpuscular Volume 100.0 H, Mean Corpuscular Hemoglobin 32.7, Mean Corpuscular Hemoglobin Concent 32.7, Red Cell Distribution Width 14.6 H, Calcium Level 8.7 L, Aspartate Amino Transf (AST/SGOT ) 12, Alanine Aminotransferase (ALT/SGPT) 10 L, Total Creatine Kinase 29 L, Alkaline Phosphatase 103, Total Bilirubin 0.6, Total Protein 6.5, Albumin 2.3 L Discharge Medications Scheduled (Kalie-Bid Probiotic) 1 Tab Tab, 1 TAB PO BID, (Reported) (Dextromethorphan/Guaifene 10-100 mg/5Ml) 1 Syp Syp, 5 ML PO Q6H, (Reported) (Super B-Complex) 1 Cap Cap, 1 CAP PO DAILY, (Reported) (Spinning Bath Person-Chris Rx 1 mg) 1 Tab Tab, 1 TAB PO DAILY, (Reported) Albuterol/Ipratropium (Ipratropium Moody/Albut 0.5-2.5 (3) mg/3Ml) 1 Bria Bria, 1 NEB INH Q4H, (Reported) 0000,0400,0800,1200,1600,2000 Cholecalciferol (Vitamin D3) 10,000 Unit Tab, 10,000 UNIT PO QWEEK, (Reported) 1900 ON SUNDAYS Cholecalciferol (Vitamin D3) 1,000 Unit Cap, 2,000 UNIT PO DAILY, (Reported) Ferrous Gluconate (Ferrous Gluconate) 324 Mg Tab, 324 MG PO BID, (Reported) Ketoconazole (Ketoconazole) 2 % Cre, 1 DOSE TOP BID, (Reported) APPLY TO FOREARMS Metoprolol Tartrate (Metoprolol Tartrate) 25 Mg Tab, 25 MG PO BID, (Reported) Nitrofurantoin Macrocrystals (Nitrofurantoin Macrocrystals) 100 Mg Cap, 100 MG PO DAILY, (Reported) Pantoprazole Sodium (Pantoprazole Sodium) 20 Mg Tab, 20 MG PO DAILY, (Reported) Scheduled PRN Acetaminophen (Acetaminophen) 325 Mg Tab, 650 MG PO Q4H PRN for PAIN, (Reported) Acetaminophen (Acephen) 650 Mg Sup, 650 MG [place] Q4H PRN for PAIN OR FEVER, ( Reported) Bisacodyl (Dulcolax) 10 Mg Sup, 10 MG [place] DAILY PRN for CONSTIPATION, (Reported) Morphine Sulfate (Morphine Sulfate) 20 Mg/5 Ml Bria, 10 MG SL Q2H PRN for PAIN, ( Reported) Prochlorperazine (Prochlorperazine Maleate) 5 Mg Tab, 5 MG PO Q6H PRN for NAUSEA , (Reported) Sodium Phosphate/Biphosphate (Enema 7-19 gm/118Ml) 1 Callie Callie, 1 CALLIE [place] DAILY PRN for CONSTIPATION, (Reported) Allergies Coded Allergies: No Known Allergies (Verified , 01/04/17) CORDELIA SAWYER DO May 12, 2017 16:27
[2017-05-12] MEDS ORDERED: WARFARIN SOD 5 MG TAB PO SCH (17:00)
== END 2017-05-12 12:50 | DRG 308 ==
LOC: M ED 14:20 → M ED INP 17:08
PROVIDERS: ADMIT General Practice; ATTEND Internal Medicine
DX: I48.91 Unspecified atrial fibrillation (principal); N18.6 End stage renal disease; N25.81 Secondary hyperparathyroidism of renal origin; J44.9 Chronic obstructive pulmonary disease, unspecified; D63.1 Anemia in chronic kidney disease; Z66 Do not resuscitate; Z99.2 Dependence on renal dialysis; Z90.49 Acquired absence of other specified parts of digestive tract; Z87.440 Personal history of urinary (tract) infections; Z85.038 Personal history of other malignant neoplasm of large intestine; Z85.118 Personal history of other malignant neoplasm of bronchus and lung; Z90.2 Acquired absence of lung [part of]; Z87.891 Personal history of nicotine dependence; Z79.01 Long term (current) use of anticoagulants; Z79.899 Other long term (current) drug therapy

== ENCOUNTER → 2017-05-15 | Outpatient (REF) | payer MEDICARE ==
[~2017-05-15] MED LIST changes: +ACEP650S PR; +ACID1CAP PO; +DEXT10SY2 PO; +DULC10SU2 PR; +ENEMENE16 PR; +IPRASOL4 INH; +MORP20SO SL; +PROC5TA PO; +RENATAB5 PO; +ROBI30SU PO; +SUPECAP24 PO
[2017-05-15 18:06] LABS: CALCIUM LEVEL 8.5 MG/DL (8.8-10.2); CREATININE FOR GFR 6.3 MG/DL (0.70-1.30); POTASSIUM SERUM 3.8 MEQ/L (3.5-5.1)
[2017-05-15 18:10] LABS: MEAN CORPUSCULAR HEMOGLOBIN 32.2 pg (27.0-33.0); MEAN CORPUSCULAR HGB CONC 32.1 g/dl (32.0-36.5); MEAN CORPUSCULAR VOLUME 100.3 fl (80.0-96.0); PLATELET COUNT, AUTOMATED 396 10^3/uL (150-450); RED CELL DISTRIBUTION WIDTH 14.6 % (11.5-14.5)
[2017-05-15 18:20] LABS: WHITE BLOOD COUNT 33.3 10^3/uL (4.0-10.0)
[2017-05-15 18:23] LABS: POS COUNT POS FLAG
== END ==
DX: N18.6 End stage renal disease (principal)